=== PATIENT | female | born 1975 | race Caucasian/White ===

== ENCOUNTER 2017-12-03 18:20 | Inpatient (IN) | payer MEDICAID, OTHER ==
[2017-12-03] MEDS ORDERED: SODIUM CHLORIDE 0.9% 1,000 ML IV STA (18:36)
[2017-12-03 19:15] LABS: Basophils % (A) 0 %; Eosinophils # (A) 0.3 k/uL (0-0.7); Eosinophils % (A) 2 %; HCT 40.3 % (34.0-46.0); HGB 13.6 gm/dL (11.4-16.0); Lymphocytes # (A) 2.4 k/uL (1.0-4.8); Lymphocytes % (A) 23 %; MCH 29.7 pg (25.0-35.0); MCHC 33.8 g/dL (31.0-37.0); MCV 87.9 fL (80.0-100.0); Monocytes # (A) 0.4 k/uL (0-1.0); Monocytes % (A) 4 %; Neutrophils # (A) 7.2 k/uL (1.3-7.7); Neutrophils % (A) 69 %; Platelet Count 360 k/uL (150-450); RBC 4.59 m/uL (3.80-5.40); RDW 12.5 % (11.5-15.5); WBC 10.4 k/uL (3.8-10.6)
[2017-12-03 19:25] LABS: Amphetamine Screen,Urine Not Detected (NotDetected); Barbiturate Screen,Urine Not Detected (NotDetected); Benzodiazepines Screen,Urine Detected (NotDetected); Cocaine Screen,Urine Not Detected (NotDetected); Methadone Screen, Urine Not Detected (NotDetected); Opiate Screen,Urine Not Detected (NotDetected); Oxycodone Screen, Urine Not Detected (NotDetected); Phencyclidine Screen,Urine Not Detected (NotDetected); Tricyclic Antidepressant,Urine Not Detected (NotDetected); Urn Cannabinoid Scrn Not Detected (NotDetected)
[2017-12-03 19:29] LABS: ALT 24 U/L (9-52); AST 24 U/L (14-36); Albumin 4.2 g/dL (3.5-5.0); Alkaline Phosphatase 82 U/L (38-126); Anion Gap 16 mmol/L; Blood Urea Nitrogen 17 mg/dL (7-17); Calcium 9.6 mg/dL (8.4-10.2); Carbon Dioxide 22 mmol/L (22-30); Chloride 110 mmol/L (98-107); Glucose 112 mg/dL (74-99); Potassium 4.7 mmol/L (3.5-5.1); Salicylate <1.0 mg/dL; Sodium 148 mmol/L (137-145); Total Bilirubin 0.3 mg/dL (0.2-1.3); Total Protein 6.6 g/dL (6.3-8.2)
[2017-12-03 19:48] LABS: Alcohol 163 mg/dL
--- NOTE | 2017-12-03 19:58 | XR ---
EXAMINATION TYPE: XR chest 2V DATE OF EXAM: 12/03/2017 COMPARISON: 11/03/2010 HISTORY: 2 views TECHNIQUE: Frontal and lateral views of the chest are obtained. FINDINGS: Heart and mediastinum are normal. Lungs are clear. Diaphragm is normal. Bony thorax appear s normal. There are chest leads. IMPRESSION: Normal chest. No change.
--- NOTE | 2017-12-03 21:19 | ED ---
Psych HPI - General Chief Complaint: Psychiatric Symptoms Stated Complaint: Mental Health Time Seen by Provider: 12/03/17 18:36 Source: police Mode of arrival: ambulatory - History of Present Illness Initial Comments: 41 years O female brought in by , her boyfriend called he is concerned that she is harming herself she has done overdose to kill herself. She has been drinking and she was not forthcoming with information about the number of the pills she took, she stated she took some Tylenol around 4 PM. she is not answering clearly wheather she took the meds to kill herself. He denies any headaches no chest pain or shortness of breath no abdominal pain no frequency urgency dysuria - Related Data Home Medications Medication Instructions Recorded Confirmed Dextroamphetamine/Amphetamine 30 mg PO BID 12/03/17 12/03/17 [Adderall] Allergies Allergy/AdvReac Type Severity Reaction Status Date / Time cephalexin [From Keflex] Allergy Unknown Verified 12/03/17 20:00 Review of Systems ROS Statement: Those systems with pertinent positive or pertinent negative responses have been documented in the HPI. ROS Other: All systems not noted in ROS Statement are negative. Past Medical History Past Medical History: No Reported History History of Any Multi-Drug Resistant Organisms: None Reported Past Surgical History: No Surgical Hx Reported Past Psychological History: No Psychological Hx Reported Smoking Status: Current every day smoker Past Alcohol Use History: Daily Past Drug Use History: None Reported General Exam - General Exam Comments Initial Comments: General: The patient is awake and alert, she is angry, agitated and do not want to be here Skin: Skin is warm and dry and no rashes or lesions are noted. Eye: Pupils are equal, round and reactive to light, extra-ocular movements are intact; there is normal conjunctiva bilaterally. Ears, nose, mouth and throat: There are moist mucous membranes and no oral lesions. Neck: The neck is supple, there is no tenderness or JVD. Cardiovascular: There is a regular rate and rhythm. No murmur, rub or gallop is appreciated. Respiratory: To auscultation bilateral, no wheezing no rhonchi no distress respiratory laura noticed Gastrointestinal: Soft, non-distended, non-tender abdomen without masses or organomegaly noted. There is no rebound or guarding present. Bowel sounds are unremarkable. Back: There is no tenderness to palpation in the midline. There is no obvious deformity. Musculoskeletal: Normal ROM, no tenderness, There is no pedal edema. There is no calf tenderness or swelling. No cords were appreciated. Neurological: CN II-XII intact, Cranial nerves III through XII are intact. There are no obvious motor or sensory deficits. Coordination appears grossly intact. Speech is normal. Psychiatric: Cooperative, crying, intoxicated and angry denies the suicidal attempt Limitations: no limitations Course Vital Signs 12/03/17 12/03/17 18:39 20:11 Temperature 97.8 F Pulse Rate 97 86 Respiratory 18 16 Rate Blood Pressure 168/112 106/58 O2 Sat by Pulse 95 98 Oximetry EKG is normal sinus rhythm ventricular rate is 96 OR interval is 134 QRS duration is 82 QT/QTc is 348/439 review of this EKG does not reveal any ST elevation or ST depression She was assessed by EPS, they recommended that she ought to be admitted for inpatient treatment and I agree with the Medical Decision Making - Lab Data Result diagrams: 12/03/17 19:03 12/03/17 19:03 Lab Results 12/03/17 12/03/17 12/03/17 Range/Units 19:03 19:03 19:03 WBC 10.4 (3.8-10.6) k/uL RBC 4.59 (3.80-5.40) m/uL Hgb 13.6 (11.4-16.0) gm/dL Hct 40.3 (34.0-46.0) % MCV 87.9 (80.0-100.0) fL MCH 29.7 (25.0-35.0) pg MCHC 33.8 (31.0-37.0) g/dL RDW 12.5 (11.5-15.5) % Plt Count 360 (150-450) k/uL Neutrophils % 69 % Lymphocytes % 23 % Monocytes % 4 % Eosinophils % 2 % Basophils % 0 % Neutrophils # 7.2 (1.3-7.7) k/uL Lymphocytes # 2.4 (1.0-4.8) k/uL Monocytes # 0.4 (0-1.0) k/uL Eosinophils # 0.3 (0-0.7) k/uL Basophils # 0.0 (0-0.2) k/uL Sodium 148 H (137-145) mmol/L Potassium 4.7 (3.5-5.1) mmol/L Chloride 110 H (98-107) mmol/L Carbon Dioxide 22 (22-30) mmol/L Anion Gap 16 mmol/L BUN 17 (7-17) mg/dL Creatinine 0.60 (0.52-1.04) mg/dL Est GFR (CKD-EPI)AfAm >90 (>60 ml/min/1.73 sqM) Est GFR (CKD-EPI)NonAf >90 (>60 ml/min/1.73 sqM) Glucose 112 H (74-99) mg/dL Plasma Lactic Acid Guilherme (0.7-2.0) mmol/L Calcium 9.6 (8.4-10.2) mg/dL Total Bilirubin 0.3 (0.2-1.3) mg/dL AST 24 (14-36) U/L ALT 24 (9-52) U/L Alkaline Phosphatase 82 (38-126) U/L Troponin I (0.000-0.034) ng/mL Total Protein 6.6 (6.3-8.2) g/dL Albumin 4.2 (3.5-5.0) g/dL Urine HCG, Qual (Not Detectd) Salicylates <1.0 mg/dL Urine Opiates Screen Not Detected (NotDetected) Ur Oxycodone Screen Not Detected (NotDetected) Urine Methadone Screen Not Detected (NotDetected) Ur Propoxyphene Screen Not Detected (NotDetected) Acetaminophen 88.0 H* ug/mL Ur Barbiturates Screen Not Detected (NotDetected) U Tricyclic Antidepress Not Detected (NotDetected) Ur Phencyclidine Scrn Not Detected (NotDetected) Ur Amphetamines Screen Not Detected (NotDetected) U Methamphetamines Scrn Not Detected (NotDetected) U Benzodiazepines Scrn Detected H (NotDetected) Urine Cocaine Screen Not Detected (NotDetected) U Marijuana (THC) Screen Not Detected (NotDetected) Serum Alcohol 163 mg/dL 12/03/17 12/03/17 12/03/17 Range/Units 19:03 19:03 19:03 WBC (3.8-10.6) k/uL RBC (3.80-5.40) m/uL Hgb (11.4-16.0) gm/dL Hct (34.0-46.0) % MCV (80.0-100.0) fL MCH (25.0-35.0) pg MCHC (31.0-37.0) g/dL RDW (11.5-15.5) % Plt Count (150-450) k/uL Neutrophils % % Lymphocytes % % Monocytes % % Eosinophils % % Basophils % % Neutrophils # (1.3-7.7) k/uL Lymphocytes # (1.0-4.8) k/uL Monocytes # (0-1.0) k/uL Eosinophils # (0-0.7) k/uL Basophils # (0-0.2) k/uL Sodium (137-145) mmol/L Potassium (3.5-5.1) mmol/L Chloride (98-107) mmol/L Carbon Dioxide (22-30) mmol/L Anion Gap mmol/L BUN (7-17) mg/dL Creatinine (0.52-1.04) mg/dL Est GFR (CKD-EPI)AfAm (>60 ml/min/1.73 sqM) Est GFR (CKD-EPI)NonAf (>60 ml/min/1.73 sqM) Glucose (74-99) mg/dL Plasma Lactic Acid Guilherme 1.6 (0.7-2.0) mmol/L Calcium (8.4-10.2) mg/dL Total Bilirubin (0.2-1.3) mg/dL AST (14-36) U/L ALT (9-52) U/L Alkaline Phosphatase (38-126) U/L Troponin I <0.012 (0.000-0.034) ng/mL Total Protein (6.3-8.2) g/dL Albumin (3.5-5.0) g/dL Urine HCG, Qual Not Detected (Not Detectd) Salicylates mg/dL Urine Opiates Screen (NotDetected) Ur Oxycodone Screen (NotDetected) Urine Methadone Screen (NotDetected) Ur Propoxyphene Screen (NotDetected) Acetaminophen ug/mL Ur Barbiturates Screen (NotDetected) U Tricyclic Antidepress (NotDetected) Ur Phencyclidine Scrn (NotDetected) Ur Amphetamines Screen (NotDetected) U Methamphetamines Scrn (NotDetected) U Benzodiazepines Scrn (NotDetected) Urine Cocaine Screen (NotDetected) U Marijuana (THC) Screen (NotDetected) Serum Alcohol mg/dL 12/03/17 Range/Units 21:09 WBC (3.8-10.6) k/uL RBC (3.80-5.40) m/uL Hgb (11.4-16.0) gm/dL Hct (34.0-46.0) % MCV (80.0-100.0) fL MCH (25.0-35.0) pg MCHC (31.0-37.0) g/dL RDW (11.5-15.5) % Plt Count (150-450) k/uL Neutrophils % % Lymphocytes % % Monocytes % % Eosinophils % % Basophils % % Neutrophils # (1.3-7.7) k/uL Lymphocytes # (1.0-4.8) k/uL Monocytes # (0-1.0) k/uL Eosinophils # (0-0.7) k/uL Basophils # (0-0.2) k/uL Sodium (137-145) mmol/L Potassium (3.5-5.1) mmol/L Chloride (98-107) mmol/L Carbon Dioxide (22-30) mmol/L Anion Gap mmol/L BUN (7-17) mg/dL Creatinine (0.52-1.04) mg/dL Est GFR (CKD-EPI)AfAm (>60 ml/min/1.73 sqM) Est GFR (CKD-EPI)NonAf (>60 ml/min/1.73 sqM) Glucose (74-99) mg/dL Plasma Lactic Acid Guilherme (0.7-2.0) mmol/L Calcium (8.4-10.2) mg/dL Total Bilirubin (0.2-1.3) mg/dL AST (14-36) U/L ALT (9-52) U/L Alkaline Phosphatase (38-126) U/L Troponin I (0.000-0.034) ng/mL Total Protein (6.3-8.2) g/dL Albumin (3.5-5.0) g/dL Urine HCG, Qual (Not Detectd) Salicylates mg/dL Urine Opiates Screen (NotDetected) Ur Oxycodone Screen (NotDetected) Urine Methadone Screen (NotDetected) Ur Propoxyphene Screen (NotDetected) Acetaminophen 80.2 H* ug/mL Ur Barbiturates Screen (NotDetected) U Tricyclic Antidepress (NotDetected) Ur Phencyclidine Scrn (NotDetected) Ur Amphetamines Screen (NotDetected) U Methamphetamines Scrn (NotDetected) U Benzodiazepines Scrn (NotDetected) Urine Cocaine Screen (NotDetected) U Marijuana (THC) Screen (NotDetected) Serum Alcohol mg/dL Disposition Clinical Impression: Acute alcohol intoxication, Tylenol overdose Disposition: ADMITTED IP TO THIS [facility] Condition: Good
[2017-12-04] MEDS ORDERED: ACETAMINOPHEN TAB 325 MG TAB PO PRN (00:56)
[2017-12-04] MEDS ORDERED: MAGNESIUM HYDROXIDE 2,400 MG/10 ML CUP PO PRN (00:56)
[2017-12-04 01:45] VITALS: BMI 29.0
[2017-12-04 08:37] LABS: Cholesterol 153 mg/dL (<200); HDL Cholesterol 83 mg/dL (40-60); LDL Cholesterol,Calculated 54 mg/dL (0-99); Triglycerides 82 mg/dL (<150)
[2017-12-04] MEDS ORDERED: NICOTINE 14MG/24HR PATCH TRANSDERM SCH (09:00)
[2017-12-04 10:02] LABS: Prothrombin Time 9.7 sec (9.0-12.0)
[2017-12-04 10:06] LABS: ALT 25 U/L (9-52); AST 18 U/L (14-36); Acetaminophen <10.0 ug/mL
[2017-12-04] MEDS ORDERED: NICOTINE 7MG/24HR PATCH TRANSDERM SCH (11:00)
--- NOTE | 2017-12-04 14:00 | CONS ---
CONSULTATION DATE OF CONSULTATION: 12/04/2017 REASON FOR CONSULTATION: Medical management requested by Dr. Rodrigez. CONSULTATION: This is a 41-year-old patient who was brought into the ER yesterday evening. She was brought in by the classifier tender. Her boyfriend called the classifier tender. He was concerned that she was harming herself. The patient tells me that she normally does not drink or abuse any drugs, but she had an altercation with her boyfriend in the process she had one about a half a pint and took 6 extra-strength Tylenol and she had no intention of killing herself. It was just more attention seeking or just frustrated and she did that. The patient does take medicine for ADHD, otherwise is in good health and works as a place. Denies any nausea or vomiting. No abdominal pain. Is rather very active. Otherwise, denies any obvious anxiety or depression. The patient did tolerate some diet. Has been up to the bathroom. REVIEW OF SYSTEMS: CONSTITUTIONAL: None. HEENT: None. RESPIRATORY: None. CARDIOVASCULAR: None. GASTROINTESTINAL: None. GENITOURINARY: None. MUSCULOSKELETAL: None. DERMATOLOGICAL: None. HEMATOLOGIC: None. LYMPHATIC: None. PSYCHIATRY: As above. PAST MEDICAL HISTORY: ADHD. PAST SURGICAL HISTORY: Birthmark to the forehead removed. SOCIAL HISTORY: Lives with her boyfriend. Smokes anywhere from 2 or 3 cigarettes a day. Denies use of any recreational drugs and alcohol only occasionally at social function. FAMILY HISTORY: Diabetes, hypertension, myocardial infarction. HOME MEDICATIONS: Adderall 30 mg b.i.d. ALLERGIES: KEFLEX. PHYSICAL EXAMINATION: On examination, temperature 97, pulse 77, respirations 16, blood pressure 137/93, pulse ox 96% on room air. GENERAL APPEARANCE: Average build, lying in bed, comfortable. Fairly groomed. EYES: Pupils equal. Conjunctivae normal. HENT: External appearance of the nose and ears normal. Oral cavity normal. NECK: JVD not raised. Mass not palpable. RESPIRATORY: Effort normal. Lungs are clear. CARDIOVASCULAR: First and second sounds normal. No edema. ABDOMEN: Soft, nontender. Liver and spleen not palpable. LYMPHATIC: No lymph nodes palpable in neck or axillae. PSYCHIATRY: Alert and oriented x3. Mood and affect normal. INVESTIGATIONS: White count 10.4, hemoglobin 13.6. Sodium 148. BUN and creatinine is normal. LFTs are normal. LDL 54. The patient's acetaminophen level initially was 88, then dropped down to 80.2. I did repeat one this morning, came back less than 10. Serum alcohol is 163 on initial presentation. Liver enzymes this morning are normal. ASSESSMENT: 1. Acute Tylenol overdose 6 tablets of extra strength and acetaminophen level has come down nicely. There is no chronic use. 2. Acute alcohol intoxication, impulsive. 3. Hypernatremia, probably from free water deficit. 4. Attention deficit hyperactivity disorder. 5. Chronic nicotine dependence. The patient smokes 2 or 3 cigarettes a day. PLAN: No further treatment for the Tylenol overdose. Enzymes have come back. She is not a chronic user and took only 6 pills. Alcohol is not an issue. We will give the patient a nicotine patch. The patient should follow up with Dr. Gibson upon discharge. I discussed her care with Dr. Rodrigez. Thank you Dr. Rodrigez. MMJENIL / SANJUANAN: [id number] /
--- NOTE | 2017-12-04 14:46 | P.HP ---
Psychiatric H&P - . H&P Date: 12/04/17 History & Physical: IDENTIFYING DATA: The patient is a 41-year-old single female admitted to the psychiatric unit involuntarily. HISTORY OF PRESENT ILLNESS: The [place] police brought her to the [facility] after receiving a telephone call from her boyfriend concerned for her safety. They arrived at her house and found her sedated. The officer completed a Petition where he wrote that he found evidence that the patient consumed almost a full bottle of 500 mg Tylenol tablets. The patient also texted her mother and sister indicating suicidal comments that "I'm done" and "it's over". She also expressed intent for her possessions to be sold off. She called her boyfriend and told him that she took a bottle of pills and don't come home for an hour and a half "just called 91". She stated that she has been depressed since the of her son and only child 3 years ago. He was 19 years old and while using cocaine and Valium. She does not know whether he from and overdose or complications of the use. She suspect that he was "experimenting" with drugs but was unaware that he had a drug "problem". She stated that she becomes more depressed around the anniversary of his . This year is the third anniversary of his overdose (he in October). She believes that the anniversary, Mother's Day, and activities related to the graduation of a niece all contributed to the worsening grief, hopelessness and thoughts of suicide. She drank an unspecified amount of whiskey and took the tablets of Tylenol with the intent of "not waking up very". She does not believe that she intended to end her life because she made contact with both her sister and her boyfriend. She understands her behavior as an expression of the severity of her distress. She has been meeting with a therapist on a weekly basis since the of her son. This week the therapist called and canceled the appointment. The therapist offered to meet on the following day but the patient stated that she was unable to keep that appointment. She described episode depression but denied feeling persistently depressed and during our interview denied all symptoms of depression. She denied feeling persistently or severely anxious. She denied periods of anxiety that built up a crescendo consistent with panic attacks. She denied obsessions or compulsions. She alleged that she has a "social drinker". She denied daily use of alcohol. She denied that she has made attempts to cut down her alcohol. She denied that she had felt annoyed when her friends or family would criticize her drinking. She does not feel guilty about her drinking and denied that she has a drink in the morning to open eyes or steady her nerves. (CAGE = 0). However, she admitted that her boyfriend has been criticizing her drinking. She denied use of drugs get high, help her sleep or change her mood. She denied psychotic symptoms (such as hallucinations, ideas of reference, thought insertion etc.). PAST PSYCHIATRIC HISTORY: She denied prior psychiatric hospitalizations. She has been meeting with counselors and therapists since the of her son. Her therapist is Sveta Mena at [facility]. She has been prescribed several antidepressants most for which she has found no benefit. Her primary care patient care director prescribes Adderall (30 mg twice a day) for a purported diagnosis of ADHD PAST MEDICAL HISTORY: None. ALLERGIES: Cephalexin. SUBSTANCE USE HISTORY: She was admitted to a residential substance treatment program when she was 19 years old for the abuse of prescription opiate medications. She denied current abuse of drugs or alcohol.. FAMILY PSYCHIATRIC/SUBSTANCE USE HISTORY: She has a family history of depression. LEGAL HISTORY: He denied legal problems. SOCIAL HISTORY: His born in [facility] and raised by an intact family. She has 1 sister. She graduated from high school and boasted she received 2 associates degrees from [employer] and a bachelor's degree from [employer]. 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 She alleged that the work was too stressful. She is single and had one child. She currently lives with her boyfriend. MENTAL STATUS EXAM: She presented as a casually groomed middle-aged female who was pleasant on approach. She made eye contact and appeared to attend to the interview. She had no distinction features are prominent physical modalities. She had a flat facial expression. She was alert and oriented to person, place and time. She showed psychomotor retardation but no abnormal movements. She had a normal gait. Her speech was spontaneous with slight decrease of rhythm and volume. She had no articulation difficulties. Affect was depressed and not reactive. She denied current suicidal ideation or wishes. She denied homicidal ideation. She denied such depressive cognitions as hopelessness mishap, helplessness and worthlessness. She ruminated about the of her son and a failure her mind relief from her grief. She did not express ideas reference, paranoid ideation or delusions. Her thinking was abstract and her associations were coherent, logical and goal directed. She denied hallucinations and did not appear to responding to internal stimuli. Global impression of intellect is average to above. She was aware of her illness but is ambivalent about continued inpatient mental health treatment.. STRENGTHS: Good health, supportive family, engagement with mental health services. WEAKNESSES: Unresolved grief. IMPRESSION: She is a 41-year-old single female who presented to [facility] after an overdose of alcohol and acetaminophen. She has a history of complicated bereavement following the apparent unintentional overdose of her only child. She is denying current symptoms of depression or thoughts of or suicide. She is psychologically minded and somewhat patronizing in response to questions about her mood and thoughts. I do not feel comfortable discharging her to outpatient care at this time and she was ambivalent about involuntary hospitalization. Should best be treated on an inpatient basis with a combination of psychopharmacology and multimodal therapy. PRINCIPLE DIAGNOSIS: Suicide attempt by overdose of alcohol and acetaminophen, bereavement, rule out major depressive disorder, rule out alcohol use disorder RECOMMENDATION: Continue inpatient psychiatric hospitalization due to severe of suicide attempt. Complete a Clinical Certificate and submitted to supporting material to probate Court and proceed with the request for involuntary hospitalization. Obtain collateral information from partner and family. Discuss a trial of antidepressant medication. Encourage participation in therapeutic groups and activities. Evaluate clinical status and response to treatment on a daily basis. Allergies Allergy/AdvReac Type Severity Reaction Status Date / Time cephalexin [From Keflex] Allergy Unknown Verified 12/04/17 01:48 Vital Signs Temp 97.0 F L 12/04/17 01:35 Pulse 77 12/04/17 01:35 Resp 16 12/04/17 01:35 BP 137/93 12/04/17 01:35 Pulse Ox 96 12/04/17 01:35 Intake & Output 12/03/17 12/04/17 12/04/17 18:59 06:59 18:59 Weight 81.647 kg 89.046 kg Laboratory Last Values WBC 10.4 k/uL (3.8-10.6) 12/03/17 19:03 RBC 4.59 m/uL (3.80-5.40) 12/03/17 19:03 Hgb 13.6 gm/dL (11.4-16.0) 12/03/17 19:03 Hct 40.3 % (34.0-46.0) 12/03/17 19:03 MCV 87.9 fL (80.0-100.0) 12/03/17 19:03 MCH 29.7 pg (25.0-35.0) 12/03/17 19:03 MCHC 33.8 g/dL (31.0-37.0) 12/03/17 19:03 RDW 12.5 % (11.5-15.5) 12/03/17 19:03 Plt Count 360 k/uL (150-450) 12/03/17 19:03 Neutrophils % 69 % 12/03/17 19:03 Lymphocytes % 23 % 12/03/17 19:03 Monocytes % 4 % 12/03/17 19:03 Eosinophils % 2 % 12/03/17 19:03 Basophils % 0 % 12/03/17 19:03 Neutrophils # 7.2 k/uL (1.3-7.7) 12/03/17 19:03 Lymphocytes # 2.4 k/uL (1.0-4.8) 12/03/17 19:03 Monocytes # 0.4 k/uL (0-1.0) 12/03/17 19:03 Eosinophils # 0.3 k/uL (0-0.7) 12/03/17 19:03 Basophils # 0.0 k/uL (0-0.2) 12/03/17 19:03 PT 9.7 sec (9.0-12.0) 12/04/17 09:27 INR 1.0 (<1.2) 12/04/17 09:27 Sodium 148 mmol/L (137-145) H 12/03/17 19:03 Potassium 4.7 mmol/L (3.5-5.1) 12/03/17 19:03 Chloride 110 mmol/L (98-107) H 12/03/17 19:03 Carbon Dioxide 22 mmol/L (22-30) 12/03/17 19:03 Anion Gap 16 mmol/L 12/03/17 19:03 BUN 17 mg/dL (7-17) 12/03/17 19:03 Creatinine 0.60 mg/dL (0.52-1.04) 12/03/17 19:03 Est GFR (CKD-EPI)AfAm >90 (>60 ml/min/1.73 sqM) 12/03/17 19:03 Est GFR (CKD-EPI)NonAf >90 (>60 ml/min/1.73 sqM) 12/03/17 19:03 Glucose 112 mg/dL (74-99) H 12/03/17 19:03 Plasma Lactic Acid Guilherme 1.6 mmol/L (0.7-2.0) 12/03/17 19:03 Calcium 9.6 mg/dL (8.4-10.2) 12/03/17 19:03 Total Bilirubin 0.3 mg/dL (0.2-1.3) 12/03/17 19:03 AST 18 U/L (14-36) 12/04/17 09:27 ALT 25 U/L (9-52) 12/04/17 09:27 Alkaline Phosphatase 82 U/L (38-126) 12/03/17 19:03 Troponin I <0.012 ng/mL (0.000-0.034) 12/03/17 19:03 Total Protein 6.6 g/dL (6.3-8.2) 12/03/17 19:03 Albumin 4.2 g/dL (3.5-5.0) 12/03/17 19:03 Triglycerides 82 mg/dL (<150) 12/04/17 08:10 Cholesterol 153 mg/dL (<200) 12/04/17 08:10 LDL Cholesterol, Calc 54 mg/dL (0-99) 12/04/17 08:10 HDL Cholesterol 83 mg/dL (40-60) H 12/04/17 08:10 Urine HCG, Qual Not Detected (Not Detectd) 12/03/17 19:03 Salicylates <1.0 mg/dL 12/03/17 19:03 Urine Opiates Screen Not Detected (NotDetected) 12/03/17 19:03 Ur Oxycodone Screen Not Detected (NotDetected) 12/03/17 19:03 Urine Methadone Screen Not Detected (NotDetected) 12/03/17 19:03 Ur Propoxyphene Screen Not Detected (NotDetected) 12/03/17 19:03 Acetaminophen <10.0 ug/mL 12/04/17 09:27 Ur Barbiturates Screen Not Detected (NotDetected) 12/03/17 19:03 U Tricyclic Antidepress Not Detected (NotDetected) 12/03/17 19:03 Ur Phencyclidine Scrn Not Detected (NotDetected) 12/03/17 19:03 Ur Amphetamines Screen Not Detected (NotDetected) 12/03/17 19:03 U Methamphetamines Scrn Not Detected (NotDetected) 12/03/17 19:03 U Benzodiazepines Scrn Detected (NotDetected) H 12/03/17 19:03 Urine Cocaine Screen Not Detected (NotDetected) 12/03/17 19:03 U Marijuana (THC) Screen Not Detected (NotDetected) 12/03/17 19:03 Serum Alcohol 163 mg/dL 12/03/17 19:03 12/04/17 14:20
[2017-12-04 17:12] LABS: Hemoglobin A1C 5.3 % (4.0-6.0)
[2017-12-05 17:03] LABS: Amorphous Sediment,Urine Occasional /hpf; Appearance,Urine Cloudy (Clear); Bilirubin,Urine Negative (Negative); Blood,Urine Negative (Negative); Color,Urine Yellow; Glucose,Urine (UA) Negative (Negative); Ketones,Urine Negative (Negative); Leukocyte Esterase,Urine Small (Negative); Mucus,Urine Rare /hpf; Nitrite,Urine Negative (Negative); PH, Urine 7.5 (5.0-8.0); Protein,Urine Negative (Negative); RBC,Urine 3 /hpf (0-5); Specific Gravity,Urine 1.015 (1.001-1.035); Squamous Epithelial Cell,Urine 2 /hpf (0-4); Urobilinogen,Urine <2.0 mg/dL (<2.0); WBC,Urine 6 /hpf (0-5)
[2017-12-05] MEDS: NICOTINE 14MG/24HR PATCH TRANSDERM SCH (17:52)
--- NOTE | 2017-12-05 19:07 | P.PN ---
Progress Note - Text Progress Note Date: 12/05/17 Patient is currently not on any psychotropic medications. She is currently refusing to take any psychiatric medications. Reports being diagnosed with ADHD and claims to have been taking Adderall the past 5 years. Asked why she hasn't been receiving her Adderall here, she also stated that it is not a big deal, I don't need it, I don't have to concentrate much being in the hospital. She claims to have felt stressed over the loss of her 19-year-old son 3 years ago in the month of October. Reports to have quit her job due to feeling stressed. She reports heavy use of alcohol use to have taken 6 Tylenol after drinking half pint of liquor to deal with her emotional pain. He stated she does not have any intentions to kill herself. Reports a good sleep and appetite. She reports going to all groups. Patient wants to sign voluntary treatment consent form. 2 clinical supports have already been completed and the patient. She reports feeling better today and wants to know how long she has to stay in the hospital. 41-year-old female appeared her stated age in fair grooming and hygiene. Maintains good eye contact. No abnormal movements noted. Speech and thought process linear and goal directed. Her mood is reported as good and affect appropriate. She denies current auditory or visual hallucinations. She denies paranoia. She denies current auditory or visual hallucinations. He is alert and oriented 4. Major depression Continue inpatient psychiatric hospitalization. Refusing to take antidepressant medications Monitor for symptoms Ecourage participation in therapeutic groups and activities.
[2017-12-06] MEDS: NICOTINE 14MG/24HR PATCH TRANSDERM SCH (09:21)
--- NOTE | 2017-12-06 20:34 | P.PN ---
Progress Note - Text Progress Note Date: 12/06/17 She was seen today. Claims she has been taking Adderall for the past 4 years. reports feeling dizzy and lightheaded due to not being on Adderall for the past 3 days. She was advised that Adderall is nonformulary. We discussed various other medication options. She has agreed to take Wellbutrin. She is currently on her menstrual cycle. Also stated she takes oral contraceptive pills. sHe reports her boyfriend had visited her today. He reports feeling better. Denies current suicidal or homicidal ideations. Denies feeling hopeless or worthless. No anger or agitation or irritability is reported. rePorts good sleep and appetite. Reports going to all her groups. 41-year-old female, appears in fair grooming and hygiene. sHe is well built and dressed casually. She is pleasant and cooperative. Maintains good eye contact Abnormal movements noted. Her speech and thought process are linear and goal directed. Her mood is reported as better and affect appropriate. His auditory or visual hallucinations. Alert and oriented 4. His paranoia. Denies current suicidal or homicidal ideations. Insight and judgment are improving. Will start wellbutrin 150mg po qday. Monitor for symptoms Ecourage participation in therapeutic groups and activities. Social work to coordinate discharge and aftercare.
[2017-12-07] MEDS: NICOTINE 14MG/24HR PATCH TRANSDERM SCH (08:21)
[2017-12-07] MEDS: buPROPion XL 150 MG TAB.ER.24H PO SCH (08:22)
--- NOTE | 2017-12-07 12:50 | P.PN ---
Subjective Progress Note Date: 12/07/17 Principal diagnosis: Suicide attempt by overdose of alcohol and acetaminophen, bereavement, rule out major depressive disorder, rule out alcohol use disorder I reviewed the medical record, interviewed the patient and discuss her treatment and treatment plan with the treatment team. She reported that she does not feel suicidal or depressed. She has benefited from attending the group therapy sessions where she felt comfortable talking with others about her feelings, loss and personal experiences. Over the weekend, she agreed to a trial of Wellbutrin as an alternative to her outpatient prescription of Adderall. She denied any current side effects to the Wellbutrin. She was initially angry that we decided to proceed with involuntary hospitalization but after talking with her cousin, who was a social media designer, she understood the reason for our decision. She plans to defer the court hearing and continue with outpatient mental health treatment. Objective - Vital Signs Vital signs: Vital Signs Temp 98.1 F 12/07/17 06:16 Pulse 82 12/07/17 06:16 Resp 16 12/07/17 06:16 BP 110/61 12/07/17 06:16 Pulse Ox 100 12/06/17 18:32 Intake & Output 12/06/17 12/07/17 12/07/17 18:59 06:59 18:59 Weight 87.8 kg - Psychiatric Psychiatric Comment(s): She presented as a casually groomed 41-year-old female who was pleasant on approach. She made eye contact and attended to the interview. She had no distinguishing features or prominent physical abnormalities. She had a bright facial expression. She was alert and oriented to person, place and time. She showed no abnormality of psychomotor activity; specifically no psychomotor retardation. Her gait was stable and steady. Her speech was spontaneous with normal rate, rhythm and volume. Affect was bright, stable and appropriate. She denied suicidal ideation or wishes. She denied depressive cognitions such as hopelessness, helplessness or worthlessness. She did not express phobias, ideas reference, paranoid ideation or delusional thoughts. Her thinking was abstract and associations were coherent and logical. She denied hallucinations and did not appear to be responding to internal stimuli. 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 Continue Wellbutrin XL 150 mg daily for the treatment of depression and ADHD. Encouraged continued participation in therapeutic groups and activities. Evaluate clinical status response to treatment on a daily basis.
[2017-12-07] MEDS: LORazepam 1 MG TAB PO PRN ×2 (15:48→23:32)
[2017-12-07] MEDS: MAG HYDROX/AL HYDROX/SIMETH 30 ML CUP PO PRN (18:17)
[2017-12-07] MEDS: SULFAMETHOX-TMP 800-160MG 1 EACH TAB PO SCH (20:45)
[2017-12-08] MEDS: SULFAMETHOX-TMP 800-160MG 1 EACH TAB PO SCH ×2 (08:35→20:55)
[2017-12-08] MEDS: buPROPion XL 150 MG TAB.ER.24H PO SCH (08:36)
[2017-12-08] MEDS: NICOTINE 21MG/24HR PATCH TRANSDERM SCH (08:36)
[2017-12-08] MEDS: LORazepam 1 MG TAB PO PRN ×2 (10:52→19:23)
--- NOTE | 2017-12-08 13:20 | P.PN ---
Subjective Progress Note Date: 12/08/17 Principal diagnosis: Suicide attempt by overdose of alcohol and acetaminophen, bereavement, rule out major depressive disorder, rule out alcohol use disorder I reviewed the medical record, interviewed the patient and discuss her treatment and treatment plan with the treatment team. She denied having thoughts of or suicide. She is anxious to be discharged and inquired if her to deferral hearing could be earlier (it is currently scheduled for 2017). The clinical unit coordinator called probate Court and the date of the deferral cannot be changed at the present time. I explained the situation to the patient and she received the news without undue distress. Objective - Vital Signs Vital signs: Vital Signs Temp 97.9 F 12/08/17 06:32 Pulse 69 12/08/17 06:32 Resp 14 12/08/17 06:32 BP 115/73 12/08/17 06:32 Pulse Ox 100 12/06/17 18:32 - Psychiatric Psychiatric Comment(s): She presented as a casually groomed 41-year-old female who was pleasant on approach. She made eye contact and attended to the interview. She had no distinguishing features or prominent physical abnormalities. She had a blunted but bright facial expression. She was alert and oriented to person, place and time. She showed no abnormality of psychomotor activity; specifically no psychomotor retardation. Her gait was stable and steady. Her speech was spontaneous with normal rate, rhythm and volume. Affect was bright, stable and appropriate. She denied suicidal ideation or wishes. She denied depressive cognitions such as hopelessness, helplessness or worthlessness. She did not express phobias, ideas reference, paranoid ideation or delusional thoughts. Her thinking was abstract and associations were coherent and logical. She denied hallucinations and did not appear to be responding to internal stimuli. - Labs CBC & Chem 7: 12/03/17 19:03 12/03/17 19:03 Assessment and Plan Assessment: She is less irritable and angry than on admission. She is denying suicidal ideation, intent or plan. 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 Continue Wellbutrin XL 150 mg daily for the treatment of depression and ADHD. Encouraged continued participation in therapeutic groups and activities. Consider discharge if and when the patient agrees to deferred the probate hearing. Evaluate clinical status response to treatment on a daily basis.
[2017-12-08] MEDS: MAG HYDROX/AL HYDROX/SIMETH 30 ML CUP PO PRN (16:09)
[2017-12-08] MEDS ORDERED: MELATONIN 5 MG TABLET PO STA (22:37)
[2017-12-09 06:17] VITALS: RESP 16
[2017-12-09] MEDS: SULFAMETHOX-TMP 800-160MG 1 EACH TAB PO SCH ×2 (08:19→21:32)
[2017-12-09] MEDS: buPROPion XL 150 MG TAB.ER.24H PO SCH (08:19)
[2017-12-09] MEDS: NICOTINE 21MG/24HR PATCH TRANSDERM SCH (08:19)
[2017-12-09] MEDS: LORazepam 1 MG TAB PO PRN ×2 (08:20→15:34)
[2017-12-09] MEDS ORDERED: IBUPROFEN 600 MG TAB PO PRN (13:49)
[2017-12-09] MEDS ORDERED: MELATONIN 5 MG TABLET PO PRN (14:06)
--- NOTE | 2017-12-09 14:14 | P.PN ---
Subjective Progress Note Date: 12/09/17 Principal diagnosis: Suicide attempt by overdose of alcohol and acetaminophen, bereavement, rule out major depressive disorder, rule out alcohol use disorder I reviewed the medical record, interviewed the patient and discuss her treatment and treatment plan with the treatment team. She denied having thoughts of or suicide. She requested a prescription for Motrin instead of Tylenol for dental pain (she is scheduled for canal on 12/16/2017). She complains of difficulty sleeping and benefited from a when necessary dose of melatonin 5 mg last night. She requested to continue the melatonin. She requests an increase in the Wellbutrin. She stated that her mood has improved but she is continuing to have general feelings of anxiety. She she also inquired about continuing with Ativan after discharge from the hospital. We engaged in a fairly lengthy discussion of the benefits and risks associated with chronic benzodiazepine use. She explained that her mother, father, sister , grandmother and boyfriend are prescribed Xanax chronically. Her mother, father and sister receive Xanax from their primary care physician for treatment of "anxiety". However, the same physician has declined her request for prescription for Xanax. She appeared to except my recommendation that she not continue this a benzodiazepine once she leaves the hospital due to the risk of dependence. Objective - Vital Signs Vital signs: Vital Signs Temp 97.8 F 12/09/17 06:05 Pulse 70 12/09/17 06:05 Resp 16 12/09/17 06:05 BP 104/68 12/09/17 06:05 Pulse Ox 100 12/06/17 18:32 - Psychiatric Psychiatric Comment(s): She presented as a casually groomed 41-year-old female who was pleasant on approach. She made eye contact and attended to the interview. She had no distinguishing features or prominent physical abnormalities. She had a blunted but bright facial expression. She was alert and oriented to person, place and time. She showed no abnormality of psychomotor activity; specifically no psychomotor retardation. Her gait was stable and steady. Her speech was spontaneous with normal rate, rhythm and volume. Affect was bright, stable and appropriate. She denied suicidal ideation or wishes. She denied depressive cognitions such as hopelessness, helplessness or worthlessness. She did not express phobias, ideas reference, paranoid ideation or delusional thoughts. Her thinking was abstract and associations were coherent and logical. She denied hallucinations and did not appear to be responding to internal stimuli. - Labs CBC & Chem 7: 12/03/17 19:03 12/03/17 19:03 Assessment and Plan Assessment: Overall, she appears mildly mentally ill and very much improved from admission. 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 Increase Wellbutrin XL 300 mg daily for the treatment of anxiety, depression and ADHD. Encouraged continued participation in therapeutic groups and activities. Discharge after she defers the probate hearing. Evaluate clinical status response to treatment on a daily basis.
[2017-12-10] MEDS ORDERED: LORazepam 1 MG TAB ONE (02:26)
[2017-12-10 06:51] VITALS: BP 110/76; PULSE 74; TEMP 97.9
[2017-12-10] MEDS: SULFAMETHOX-TMP 800-160MG 1 EACH TAB PO SCH (08:22)
[2017-12-10] MEDS: NICOTINE 21MG/24HR PATCH TRANSDERM SCH (08:22)
[2017-12-10] MEDS ORDERED: buPROPion XL 300 MG TAB.ER.24H PO SCH (09:00)
[2017-12-10] MEDS: LORazepam 1 MG TAB PO PRN (11:58)
--- NOTE | 2017-12-10 14:10 | P.DS ---
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 She was admitted to the psychiatric unit involuntarily following an attempted suicide by overdose of alcohol and acetaminophen. She apparently to exit her boyfriend and her sister indicating current suicidal ideation. In the emergency department her serum alcohol was 163. The initial acetaminophen level was 88. When she was medically cleared she was transferred to the psychiatric unit under the care of this process description writer. We provided a comprehensive biopsychosocial assessment. The continuous improvement consultant system support developer completed initial physical exam and medical history. On admission to the unit she was angry and depressed. She attributed to the attempt to the anniversary of her son's . She minimizes the severity of the suicide attempt and demanded to be discharged. Because of the lack of of insight as to the severity of her suicidal attempt we proceeded with the application for involuntary hospitalization. A significant contributor may have been the cancellation of her appointment with her psychotherapist the week of her suicide attempt. 48 hours after admission the unit her demeanor changed. She was much less angry and depressed. She expressed remorse over her behavior. She participated in therapeutic groups and activities. She posed no management problem and required no emergent medications for behavioral dyscontrol. Although she initially declined treatment of antidepressant (alleging that she is not depressed and "they have not worked in the past") She agreed to a trial of Wellbutrin XL for the treatment of mood and symptoms ADHD. She reported improvement in her mood, decrease anxiety and improved ability concentrate and attend with the Wellbutrin. She met with her court appointed contracts attorney and deferred the probate hearing. She presented as a tall casually groomed middle-aged female who was pleasant on approach. She made eye contact and attended to the interview. She had a bright facial expression. She is alert and oriented to person, place and time. She showed no irritability of psychomotor activity. She is not agitated or restless. Her speech was spontaneous with normal rate, rhythm and volume. She had no articulation difficulties. Affect was stable and appropriate. She denied suicidal ideation or wishes. She denied homicidal ideation. She denied such depressive cognitions as hopelessness, helplessness or worthlessness. She did not ruminate about the of her son. She did not express ideas reference or paranoid ideation. Her thinking was abstract and associations were coherent, logical and goal directed. She denied hallucinations and did not appear to be responding to internal stimuli. Patient Condition at Discharge: Good Plan - Discharge Summary Discharge Rx Participant: No New Discharge Prescriptions: New buPROPion XL [Wellbutrin XL] 300 mg PO DAILY #30 tab.er.24h Melatonin 5 mg PO HS PRN #30 tablet PRN Reason: Insomnia Nicotine 21Mg/24Hr Patch [Habitrol] 1 patch TRANSDERM DAILY #7 patch Discontinued Dextroamphetamine/Amphetamine [Adderall] 30 mg PO BID Discharge Medication List Melatonin 5 mg PO HS PRN #30 tablet 12/10/17 [Rx] Nicotine 21Mg/24Hr Patch [Habitrol] 1 patch TRANSDERM DAILY #7 patch 12/10/17 [ Rx] buPROPion XL [Wellbutrin XL] 300 mg PO DAILY #30 tab.er.24h 12/10/17 [Rx] Follow up Appointment(s)/Referral(s): [facility] [Outside] - 12/11/17 1:00 pm (Rick Mar MD [Primary Care Provider] - 1-2 days Patient Instructions/Handouts: Alcohol Intoxication (DC), Suicide Prevention for Adults (DC) Activity/Diet/Wound Care/Special Instructions: Keep your follow up appointments as scheduled. Continue medications as prescribed. No alcohol or street drugs. No access to guns or weapons. Crisis line if needed . Discharge Disposition: HOME SELF-CARE
== END 2017-12-10 15:13 | disposition home or self-care (01) | DRG 881 ==
LOC: EC 18:20 → 3MHU 12-04 00:54
PROVIDERS: ADMIT Psychiatry & Neurology Psychiatry; ATTEND Psychiatry & Neurology Psychiatry
DX: F43.21 Adjustment disorder with depressed mood (principal); E87.0 Hyperosmolality and hypernatremia; F10.129 Alcohol abuse with intoxication, unspecified; F17.210 Nicotine dependence, cigarettes, uncomplicated; F41.9 Anxiety disorder, unspecified; F90.9 Attention-deficit hyperactivity disorder, unspecified type; T39.1X2A Poisoning by 4-Aminophenol derivatives, intentional self-harm, initial encounter; Z63.4 Disappearance and death of family member; Z81.8 Family history of other mental and behavioral disorders; Z82.49 Family history of ischemic heart disease and other diseases of the circulatory system; Z83.3 Family history of diabetes mellitus; Y90.6 Blood alcohol level of 120-199 mg/100 ml; Z56.0 Unemployment, unspecified
CPT/HCPCS: 36415; 71046; 80053; 80061; 80306; 80320; 81001; 81025; 82075; 83036; 83520; 83605; 84450; 84460; 84484; 85025; 85610; 93005; 96360; 99285

== ENCOUNTER 2017-12-18 16:25 | Observation (INO) | payer OTHER ==
[2017-12-18] MEDS ORDERED: SODIUM CHLORIDE 0.9% 1,000 ML IV STA (16:36)
[2017-12-18] MEDS ORDERED: LORazepam 2 MG/ML INJ IV STA ×2 (16:38→17:01)
[2017-12-18 16:58] LABS: Basophils # (A) 0.1 k/uL (0-0.2); Basophils % (A) 1 %; Eosinophils # (A) 0.3 k/uL (0-0.7); Eosinophils % (A) 2 %; HCT 40.5 % (34.0-46.0); HGB 13.4 gm/dL (11.4-16.0); Lymphocytes # (A) 4.3 k/uL (1.0-4.8); Lymphocytes % (A) 28 %; MCH 30.6 pg (25.0-35.0); MCHC 33.1 g/dL (31.0-37.0); MCV 92.4 fL (80.0-100.0); Mean Platelet Volume 6.8; Monocytes # (A) 0.6 k/uL (0-1.0); Monocytes % (A) 4 %; Neutrophils # (A) 9.6 k/uL (1.3-7.7); Neutrophils % (A) 64 %; Platelet Count 445 k/uL (150-450); RBC 4.38 m/uL (3.80-5.40); RDW 13.2 % (11.5-15.5); WBC 15.1 k/uL (3.8-10.6)
[2017-12-18] MEDS ORDERED: ETOMIDATE 2 MG/ML 10 ML VIAL IVP STA (16:58)
[2017-12-18] MEDS ORDERED: SUCCINYLCHOLINE CHLORIDE VIAL 200 MG/10 ML VIAL IV STA (16:58)
[2017-12-18 16:59] LABS: VBG PH 7.22 (7.31-7.41)
--- NOTE | 2017-12-18 17:03 | ED ---
Overdose HPI - General Chief Complaint: Overdose Stated Complaint: drug ingestion Time Seen by Provider: 12/18/17 16:36 Source: patient Mode of arrival: EMS Limitations: altered mental status - History of Present Illness Initial Comments: Patient is a 42-year-old female presenting for intentional overdose. Mother and sister bedside and states that approximately at 3:30 to 4:00 PM, the patient called them and told them that she was committing suicide with Wellbutrin. EMS was called and the patient arrived to the emergency department. Because of patient's mental status, the patient could not provide review of systems. Family is also able to state that the patient has a known history of psychiatric disorders and attempted suicide approximately 7 days ago. There is present with the medication bottles and they have one Wellbutrin bottle of 300 mg with no tablets left. This bottle was originally filled on . A second bottle is dated for 12/15/2017 and 150 mg. This bottle has 3 tablets left. Other medications for the patient include atorvastatin, meclizine, duloxetine, fluoxetine, vitamin D, omeprazole, sertraline - Related Data Previous Rx's Medication Instructions Recorded Melatonin 5 mg PO HS PRN #30 tablet 12/10/17 Nicotine 21Mg/24Hr Patch [Habitrol] 1 patch TRANSDERM DAILY #7 patch 12/10/17 buPROPion XL [Wellbutrin XL] 300 mg PO DAILY #30 tab.er.24h 12/10/17 Allergies Allergy/AdvReac Type Severity Reaction Status Date / Time cephalexin [From Keflex] Allergy Unknown Verified 12/18/17 16:55 Review of Systems ROS Statement: Those systems with pertinent positive or pertinent negative responses have been documented in the HPI. ROS Other: All systems not noted in ROS Statement are negative. Limitations: ROS unobtainable due to patients medical condition Past Medical History Past Medical History: No Reported History History of Any Multi-Drug Resistant Organisms: None Reported Past Surgical History: No Surgical Hx Reported Additional Past Surgical History / Comment(s): Birthmark to forehead removed. Past Anesthesia/Blood Transfusion Reactions: No Reported Reaction Past Psychological History: Anxiety, Depression Smoking Status: Current every day smoker Past Alcohol Use History: Occasional Past Drug Use History: None Reported - Past Family History Father Family Medical History: Diabetes Mellitus, Hypertension, Myocardial Infarction ( [place]) Mother Family Medical History: No Reported History Son(s) Family Medical History: No Reported History General Exam - General Exam Comments Initial Comments: Constitutional: Pt is distressed and moving about the bed and nonpurposeful motions. HENT: Head: Normocephalic and atraumatic. Eyes: Rotary nystagmus present. Pupils 4 mm and minimally reactive bilaterally Neck: Normal range of motion. Neck supple. Cardiovascular: Tachycardia, regular rhythm, S1 normal, S2 normal and normal heart sounds. Exam reveals no gallop and no friction rub. No murmur heard. Pulmonary/Chest: Effort normal and breath sounds normal. tachypnea is present. No respiratory distress. No wheezes or rales noted. Abdominal: Soft. Bowel sounds are normal. Pt exhibits no shifting dullness, no distension, no pulsatile liver, no fluid wave, no abdominal bruit and no ascites. There is no tenderness. There is no rigidity, no rebound, no guarding, no tenderness at McBurney's point and negative Rodas's sign. Musculoskeletal: Normal range of motion. Neurological: Unable to assess neurologic mentation. Patient is alert. Clonus of the lower extremities is present. Unable to assess reflexes. Skin: Patient is diaphoretic with diffuse erythema Psychiatric: Patient is agitated and making nonsensical speech Limitations: altered mental status Course Vital Signs 12/18/17 12/18/17 12/18/17 16:45 17:05 17:20 Temperature 100.5 F H Pulse Rate 133 H 110 H 99 Respiratory 32 H 18 16 Rate Blood Pressure 210/127 192/110 143/86 O2 Sat by Pulse 97 100 100 Oximetry 12/18/17 12/18/17 12/18/17 17:45 18:05 18:25 Temperature Pulse Rate 93 88 88 Respiratory 18 16 16 Rate Blood Pressure 142/86 121/65 124/73 O2 Sat by Pulse 100 100 100 Oximetry 12/18/17 12/18/17 12/18/17 18:45 18:47 19:09 Temperature 97.9 F Pulse Rate 88 92 Respiratory 16 16 Rate Blood Pressure 131/86 133/75 O2 Sat by Pulse 100 100 Oximetry 12/18/17 12/18/17 12/18/17 19:34 19:52 20:19 Temperature Pulse Rate 81 78 78 Respiratory 20 18 Rate Blood Pressure 138/77 133/86 116/81 O2 Sat by Pulse 100 100 100 Oximetry 12/18/17 12/18/17 20:34 20:52 Temperature Pulse Rate 78 79 Respiratory 17 16 Rate Blood Pressure 154/81 156/90 O2 Sat by Pulse 100 100 Oximetry - Reevaluation(s) Reevaluation #1: 12/18/17 16:30 - patient arrived to the emergency department and noted to be combative. Patient was placed in restraints and given 4 mg of Ativan. Time: 16:30 Reevaluation #2: 12/18/17 16:40 Patient continues to remain agitated and there is concern about the patient maintaining her airway. Therefore the patient was moved to a resuscitation bay and preparing for intubation. Time: 16:40 Reevaluation #3: 12/18/17 17:15 - patient intubated without complication. Post procedure x-ray performed and shows that the ET tube is in correct position. Case has been discussed with toxicology center and is recommended that whole bowel irrigation be performed as well as charcoal. There is no recommendation for cyproheptadine for SSRI. Patient has been placed on propofol as well as Versed and shows no seizure-like activities. 12/18/17 19:33 Reevaluation #4: 12/18/17 19:29 Patient continues to remain hemodynamically stable and mentation is improving. She is able to nod her head and give appropriate thumbs-up and is writing on a piece of paper. However, the patient will obviously remained intubated as there is still continued risk of seizures. Procedures - Intubation Time Out Performed: No (emergent) Sedative: Etomidate Mg Given: 20 Paralytic: Succinylcholine Mg Given: 80 Laryngoscope: Rivera Size: 4 ET Tube Size: 8 ET Tube Uncuffed: No Tube Secured Depth (cm): 24 Tube Secured Location: lips Tube Placement Confirmation: visualized tube passing through cords, equal breath sounds bilaterally, no breath sounds over epigastrium, confirmation by capnometry Patient Tolerated Procedure: well Intubation Complications: none - Restraint - Face to Face Restraint Occurrence 1 Patient's Immediate Situation: Endangers self safety, Endangers others' safety Patient's Immediate Situation - Comment: Restraints applied at 16:30. Restraints unsuccessful and there is concern for patient airway. Therefore restraints removed at approximately 1650. Patient's Reaction to the Intervention: Aggressive, Combative, Resistive to care Patient's Medical & Behavioral Condition: Awake, Alert, Confused, Anxious, Agitated, Bizarre behavior Need to Continue or Terminate Restraint or Seclusion: Terminate Face to Face Eval of Restraint Date: 12/18/17 Face to Face Eval of Restraint Time: 16:30 Medical Decision Making - Medical Decision Making Laboratory studies showed that the patient was initially acidotic with a lactic acid elevation of 9.9 and leukocytosis. It is suspected that this is reactionary. PH was also noted to be 7.2 to. Upon initial examination, the was extremely agitated and there was very high concerned about impending seizures considering that she does have a reliable story of overdosing on Wellbutrin. Because of this concern, the patient was intubated with success. Case is also discussed with toxicology Center multiple times and charcoal and whole bowel irrigation was measured. Remaining toxicology screens were negative and patient was admitted to ICU. Case is discussed with both and Tc in both kindly accept admission. - Lab Data Result diagrams: 12/18/17 16:40 12/18/17 16:40 Lab Results 12/18/17 12/18/17 12/18/17 Range/Units 16:40 16:40 16:40 WBC 15.1 H (3.8-10.6) k/uL RBC 4.38 (3.80-5.40) m/uL Hgb 13.4 (11.4-16.0) gm/dL Hct 40.5 (34.0-46.0) % MCV 92.4 (80.0-100.0) fL MCH 30.6 (25.0-35.0) pg MCHC 33.1 (31.0-37.0) g/dL RDW 13.2 (11.5-15.5) % Plt Count 445 (150-450) k/uL Neutrophils % 64 % Lymphocytes % 28 % Monocytes % 4 % Eosinophils % 2 % Basophils % 1 % Neutrophils # 9.6 H (1.3-7.7) k/uL Lymphocytes # 4.3 (1.0-4.8) k/uL Monocytes # 0.6 (0-1.0) k/uL Eosinophils # 0.3 (0-0.7) k/uL Basophils # 0.1 (0-0.2) k/uL PT (9.0-12.0) sec INR (<1.2) Sample Site ABG pH (7.35-7.45) ABG pCO2 (35-45) mmHg ABG pO2 (83-108) mmHg ABG HCO3 (21-25) mmol/L ABG O2 Saturation (94-97) % ABG Base Excess mmol/L Dilshad Test VBG pH 7.22 L (7.31-7.41) VBG pCO2 40 (37-51) mmHg VBG HCO3 16 L (24-28) mmol/L FiO2 % Sodium 141 (137-145) mmol/L Potassium 4.6 (3.5-5.1) mmol/L Chloride 104 (98-107) mmol/L Carbon Dioxide 12 L (22-30) mmol/L Anion Gap 25 mmol/L BUN 11 (7-17) mg/dL Creatinine 0.90 (0.52-1.04) mg/dL Est GFR (CKD-EPI)AfAm >90 (>60 ml/min/1.73 sqM) Est GFR (CKD-EPI)NonAf 80 (>60 ml/min/1.73 sqM) Glucose 211 H (74-99) mg/dL Lactic Ac Sepsis Rflx Plasma Lactic Acid Guilherme (0.7-2.0) mmol/L Calcium 9.7 (8.4-10.2) mg/dL Total Bilirubin 0.6 (0.2-1.3) mg/dL Conjugated Bilirubin 0.0 (0.0-0.3) mg/dL Unconjugated Bilirubin 0.4 (0.0-1.1) mg/dL Delta Bilirubin 0.2 (0.0-0.2) mg/dL AST 30 (14-36) U/L ALT 29 (9-52) U/L Alkaline Phosphatase 82 (38-126) U/L Creatine Kinase 227 H (30-135) U/L Troponin I (0.000-0.034) ng/mL Total Protein 7.1 (6.3-8.2) g/dL Albumin 4.7 (3.5-5.0) g/dL Lipase 85 (23-300) U/L Urine Color Urine Appearance (Clear) Urine pH (5.0-8.0) Ur Specific [place] (1.001-1.035) Urine Protein (Negative) Urine Glucose (UA) (Negative) Urine Ketones (Negative) Urine Blood (Negative) Urine Nitrite (Negative) Urine Bilirubin (Negative) Urine Urobilinogen (<2.0) mg/dL Ur Leukocyte Esterase (Negative) Urine RBC (0-5) /hpf Urine WBC (0-5) /hpf Ur Squamous Epith Cells (0-4) /hpf Hyaline Casts (0-2) /lpf Urine Mucus (None) /hpf Urine HCG, Qual (Not Detectd) Salicylates <1.0 mg/dL Urine Opiates Screen (NotDetected) Ur Oxycodone Screen (NotDetected) Urine Methadone Screen (NotDetected) Ur Propoxyphene Screen (NotDetected) Acetaminophen <10.0 ug/mL Ur Barbiturates Screen (NotDetected) U Tricyclic Antidepress (NotDetected) Ur Phencyclidine Scrn (NotDetected) Ur Amphetamines Screen (NotDetected) U Methamphetamines Scrn (NotDetected) U Benzodiazepines Scrn (NotDetected) Urine Cocaine Screen (NotDetected) U Marijuana (THC) Screen (NotDetected) Serum Alcohol <10 mg/dL 12/18/17 12/18/17 12/18/17 Range/Units 16:40 16:40 16:40 WBC (3.8-10.6) k/uL RBC (3.80-5.40) m/uL Hgb (11.4-16.0) gm/dL Hct (34.0-46.0) % MCV (80.0-100.0) fL MCH (25.0-35.0) pg MCHC (31.0-37.0) g/dL RDW (11.5-15.5) % Plt Count (150-450) k/uL Neutrophils % % Lymphocytes % % Monocytes % % Eosinophils % % Basophils % % Neutrophils # (1.3-7.7) k/uL Lymphocytes # (1.0-4.8) k/uL Monocytes # (0-1.0) k/uL Eosinophils # (0-0.7) k/uL Basophils # (0-0.2) k/uL PT 10.1 (9.0-12.0) sec INR 1.0 (<1.2) Sample Site ABG pH (7.35-7.45) ABG pCO2 (35-45) mmHg ABG pO2 (83-108) mmHg ABG HCO3 (21-25) mmol/L ABG O2 Saturation (94-97) % ABG Base Excess mmol/L Dilshad Test VBG pH (7.31-7.41) VBG pCO2 (37-51) mmHg VBG HCO3 (24-28) mmol/L FiO2 % Sodium (137-145) mmol/L Potassium (3.5-5.1) mmol/L Chloride (98-107) mmol/L Carbon Dioxide (22-30) mmol/L Anion Gap mmol/L BUN (7-17) mg/dL Creatinine (0.52-1.04) mg/dL Est GFR (CKD-EPI)AfAm (>60 ml/min/1.73 sqM) Est GFR (CKD-EPI)NonAf (>60 ml/min/1.73 sqM) Glucose (74-99) mg/dL Lactic Ac Sepsis Rflx Plasma Lactic Acid Guilherme 9.9 H* (0.7-2.0) mmol/L Calcium (8.4-10.2) mg/dL Total Bilirubin (0.2-1.3) mg/dL Conjugated Bilirubin (0.0-0.3) mg/dL Unconjugated Bilirubin (0.0-1.1) mg/dL Delta Bilirubin (0.0-0.2) mg/dL AST (14-36) U/L ALT (9-52) U/L Alkaline Phosphatase (38-126) U/L Creatine Kinase (30-135) U/L Troponin I <0.012 (0.000-0.034) ng/mL Total Protein (6.3-8.2) g/dL Albumin (3.5-5.0) g/dL Lipase (23-300) U/L Urine Color Urine Appearance (Clear) Urine pH (5.0-8.0) Ur Specific [place] (1.001-1.035) Urine Protein (Negative) Urine Glucose (UA) (Negative) Urine Ketones (Negative) Urine Blood (Negative) Urine Nitrite (Negative) Urine Bilirubin (Negative) Urine Urobilinogen (<2.0) mg/dL Ur Leukocyte Esterase (Negative) Urine RBC (0-5) /hpf Urine WBC (0-5) /hpf Ur Squamous Epith Cells (0-4) /hpf Hyaline Casts (0-2) /lpf Urine Mucus (None) /hpf Urine HCG, Qual (Not Detectd) Salicylates mg/dL Urine Opiates Screen (NotDetected) Ur Oxycodone Screen (NotDetected) Urine Methadone Screen (NotDetected) Ur Propoxyphene Screen (NotDetected) Acetaminophen ug/mL Ur Barbiturates Screen (NotDetected) U Tricyclic Antidepress (NotDetected) Ur Phencyclidine Scrn (NotDetected) Ur Amphetamines Screen (NotDetected) U Methamphetamines Scrn (NotDetected) U Benzodiazepines Scrn (NotDetected) Urine Cocaine Screen (NotDetected) U Marijuana (THC) Screen (NotDetected) Serum Alcohol mg/dL 12/18/17 12/18/17 12/18/17 Range/Units 17:12 17:30 17:30 WBC (3.8-10.6) k/uL RBC (3.80-5.40) m/uL Hgb (11.4-16.0) gm/dL Hct (34.0-46.0) % MCV (80.0-100.0) fL MCH (25.0-35.0) pg MCHC (31.0-37.0) g/dL RDW (11.5-15.5) % Plt Count (150-450) k/uL Neutrophils % % Lymphocytes % % Monocytes % % Eosinophils % % Basophils % % Neutrophils # (1.3-7.7) k/uL Lymphocytes # (1.0-4.8) k/uL Monocytes # (0-1.0) k/uL Eosinophils # (0-0.7) k/uL Basophils # (0-0.2) k/uL PT (9.0-12.0) sec INR (<1.2) Sample Site ABG pH (7.35-7.45) ABG pCO2 (35-45) mmHg ABG pO2 (83-108) mmHg ABG HCO3 (21-25) mmol/L ABG O2 Saturation (94-97) % ABG Base Excess mmol/L Dilshad Test VBG pH (7.31-7.41) VBG pCO2 (37-51) mmHg VBG HCO3 (24-28) mmol/L FiO2 % Sodium (137-145) mmol/L Potassium (3.5-5.1) mmol/L Chloride (98-107) mmol/L Carbon Dioxide (22-30) mmol/L Anion Gap mmol/L BUN (7-17) mg/dL Creatinine (0.52-1.04) mg/dL Est GFR (CKD-EPI)AfAm (>60 ml/min/1.73 sqM) Est GFR (CKD-EPI)NonAf (>60 ml/min/1.73 sqM) Glucose (74-99) mg/dL Lactic Ac Sepsis Rflx Y Plasma Lactic Acid Guilherme (0.7-2.0) mmol/L Calcium (8.4-10.2) mg/dL Total Bilirubin (0.2-1.3) mg/dL Conjugated Bilirubin (0.0-0.3) mg/dL Unconjugated Bilirubin (0.0-1.1) mg/dL Delta Bilirubin (0.0-0.2) mg/dL AST (14-36) U/L ALT (9-52) U/L Alkaline Phosphatase (38-126) U/L Creatine Kinase (30-135) U/L Troponin I (0.000-0.034) ng/mL Total Protein (6.3-8.2) g/dL Albumin (3.5-5.0) g/dL Lipase (23-300) U/L Urine Color Yellow Urine Appearance Clear (Clear) Urine pH 5.5 (5.0-8.0) Ur Specific [place] 1.016 (1.001-1.035) Urine Protein 1+ H (Negative) Urine Glucose (UA) Negative (Negative) Urine Ketones Trace H (Negative) Urine Blood Negative (Negative) Urine Nitrite Negative (Negative) Urine Bilirubin Negative (Negative) Urine Urobilinogen <2.0 (<2.0) mg/dL Ur Leukocyte Esterase Negative (Negative) Urine RBC <1 (0-5) /hpf Urine WBC 1 (0-5) /hpf Ur Squamous Epith Cells 1 (0-4) /hpf Hyaline Casts 43 H (0-2) /lpf Urine Mucus Occasional H (None) /hpf Urine HCG, Qual Not Detected (Not Detectd) Salicylates mg/dL Urine Opiates Screen Not Detected (NotDetected) Ur Oxycodone Screen Not Detected (NotDetected) Urine Methadone Screen Not Detected (NotDetected) Ur Propoxyphene Screen Not Detected (NotDetected) Acetaminophen ug/mL Ur Barbiturates Screen Not Detected (NotDetected) U Tricyclic Antidepress Not Detected (NotDetected) Ur Phencyclidine Scrn Not Detected (NotDetected) Ur Amphetamines Screen Not Detected (NotDetected) U Methamphetamines Scrn Not Detected (NotDetected) U Benzodiazepines Scrn Detected H (NotDetected) Urine Cocaine Screen Not Detected (NotDetected) U Marijuana (THC) Screen Not Detected (NotDetected) Serum Alcohol mg/dL 12/18/17 Range/Units 17:49 WBC (3.8-10.6) k/uL RBC (3.80-5.40) m/uL Hgb (11.4-16.0) gm/dL Hct (34.0-46.0) % MCV (80.0-100.0) fL MCH (25.0-35.0) pg MCHC (31.0-37.0) g/dL RDW (11.5-15.5) % Plt Count (150-450) k/uL Neutrophils % % Lymphocytes % % Monocytes % % Eosinophils % % Basophils % % Neutrophils # (1.3-7.7) k/uL Lymphocytes # (1.0-4.8) k/uL Monocytes # (0-1.0) k/uL Eosinophils # (0-0.7) k/uL Basophils # (0-0.2) k/uL PT (9.0-12.0) sec INR (<1.2) Sample Site LRA ABG pH 7.36 (7.35-7.45) ABG pCO2 34 L (35-45) mmHg ABG pO2 >420 H (83-108) mmHg ABG HCO3 19 L (21-25) mmol/L ABG O2 Saturation 99.6 H (94-97) % ABG Base Excess 5.2 mmol/L Dilshad Test Yes VBG pH (7.31-7.41) VBG pCO2 (37-51) mmHg VBG HCO3 (24-28) mmol/L FiO2 100 % Sodium (137-145) mmol/L Potassium (3.5-5.1) mmol/L Chloride (98-107) mmol/L Carbon Dioxide (22-30) mmol/L Anion Gap mmol/L BUN (7-17) mg/dL Creatinine (0.52-1.04) mg/dL Est GFR (CKD-EPI)AfAm (>60 ml/min/1.73 sqM) Est GFR (CKD-EPI)NonAf (>60 ml/min/1.73 sqM) Glucose (74-99) mg/dL Lactic Ac Sepsis Rflx Plasma Lactic Acid Guilherme (0.7-2.0) mmol/L Calcium (8.4-10.2) mg/dL Total Bilirubin (0.2-1.3) mg/dL Conjugated Bilirubin (0.0-0.3) mg/dL Unconjugated Bilirubin (0.0-1.1) mg/dL Delta Bilirubin (0.0-0.2) mg/dL AST (14-36) U/L ALT (9-52) U/L Alkaline Phosphatase (38-126) U/L Creatine Kinase (30-135) U/L Troponin I (0.000-0.034) ng/mL Total Protein (6.3-8.2) g/dL Albumin (3.5-5.0) g/dL Lipase (23-300) U/L Urine Color Urine Appearance (Clear) Urine pH (5.0-8.0) Ur Specific [place] (1.001-1.035) Urine Protein (Negative) Urine Glucose (UA) (Negative) Urine Ketones (Negative) Urine Blood (Negative) Urine Nitrite (Negative) Urine Bilirubin (Negative) Urine Urobilinogen (<2.0) mg/dL Ur Leukocyte Esterase (Negative) Urine RBC (0-5) /hpf Urine WBC (0-5) /hpf Ur Squamous Epith Cells (0-4) /hpf Hyaline Casts (0-2) /lpf Urine Mucus (None) /hpf Urine HCG, Qual (Not Detectd) Salicylates mg/dL Urine Opiates Screen (NotDetected) Ur Oxycodone Screen (NotDetected) Urine Methadone Screen (NotDetected) Ur Propoxyphene Screen (NotDetected) Acetaminophen ug/mL Ur Barbiturates Screen (NotDetected) U Tricyclic Antidepress (NotDetected) Ur Phencyclidine Scrn (NotDetected) Ur Amphetamines Screen (NotDetected) U Methamphetamines Scrn (NotDetected) U Benzodiazepines Scrn (NotDetected) Urine Cocaine Screen (NotDetected) U Marijuana (THC) Screen (NotDetected) Serum Alcohol mg/dL - EKG Data EKG Comments: EKG timed for 12/19/15:49 - sinus tachycardia with a rate of 134, SC interval 166, QRS 94, QTC [address] depressions or elevations noted significant baseline artifact noted EKG timed for 12/16/16:07 - sinus tachycardia measured at 1 12 bpm, SC interval 184, QRS 100, QTC 461. No significant ST depressions or elevations noted. Critical Care Time Critical Care Time: Yes Total Critical Care Time: 45 Critical Care Time: Patient was emergently intubated as she was not protecting her airway. There is also extensive discussion with toxicology center and review multiple imaging including CT head and KUB and chest x-ray. Approximate 45 minutes of critical care time was spent on this case. Disposition Clinical Impression: Bupropion overdose, Respiratory failure Disposition: ADMITTED IP TO [facility] Condition: Poor Decision to Admit Reason: Admit from EC Decision Date: 12/18/17 Decision Time: 18:26
[2017-12-18 17:09] LABS: Prothrombin Time 10.1 sec (9.0-12.0)
[2017-12-18 17:10] LABS: ALT 29 U/L (9-52); AST 30 U/L (14-36); Acetaminophen <10.0 ug/mL; Albumin 4.7 g/dL (3.5-5.0); Alcohol <10 mg/dL; Alkaline Phosphatase 82 U/L (38-126); Anion Gap 25 mmol/L; Bilirubin, Delta 0.2 mg/dL (0.0-0.2); Bilirubin,Unconjugated 0.4 mg/dL (0.0-1.1); Blood Urea Nitrogen 11 mg/dL (7-17); Calcium 9.7 mg/dL (8.4-10.2); Carbon Dioxide 12 mmol/L (22-30); Chloride 104 mmol/L (98-107); Creatine Kinase 227 U/L (30-135); Glucose 211 mg/dL (74-99); Lipase 85 U/L (23-300); Potassium 4.6 mmol/L (3.5-5.1); Salicylate <1.0 mg/dL; Sodium 141 mmol/L (137-145); Total Bilirubin 0.6 mg/dL (0.2-1.3); Total Protein 7.1 g/dL (6.3-8.2)
[2017-12-18] MEDS ORDERED: SODIUM CHLORIDE 0.9% 1,000 ML IV ONE (17:15)
[2017-12-18] MEDS ORDERED: MIDAZOLAM HCL 100 MG in SODIUM CHLORIDE 0.9% 80 ML IV SCH (17:15)
[2017-12-18] MEDS ORDERED: PROPOFOL 10 MG/ML 20 ML VIAL IV STA ×2 (17:28→17:39)
[2017-12-18] MEDS ORDERED: ACTIVATED CHARCOAL 50 GM/240 ML BOTTLE PO STA (17:28)
[2017-12-18] MEDS: SODIUM CHLORIDE 0.9% 1,000 ML IV SCH ×2 (17:33→22:51)
[2017-12-18 17:40] LABS: Appearance,Urine Clear (Clear); Bilirubin,Urine Negative (Negative); Blood,Urine Negative (Negative); Color,Urine Yellow; Glucose,Urine (UA) Negative (Negative); Hyaline Casts,Urine 43 /lpf (0-2); Ketones,Urine Trace (Negative); Leukocyte Esterase,Urine Negative (Negative); Mucus,Urine Occasional /hpf; Nitrite,Urine Negative (Negative); PH, Urine 5.5 (5.0-8.0); Protein,Urine 1+ (Negative); RBC,Urine <1 /hpf (0-5); Specific Gravity,Urine 1.016 (1.001-1.035); Squamous Epithelial Cell,Urine 1 /hpf (0-4); Urobilinogen,Urine <2.0 mg/dL (<2.0); WBC,Urine 1 /hpf (0-5)
[2017-12-18] MEDS ORDERED: PROPOFOL 1,000 MG in EMPTY BAG 1 BAG IV ONE (17:42)
[2017-12-18] MEDS ORDERED: PEG 3350-NA SULF,BICARB,CL/KCL 4,000 ML BOTTLE PO ONE (17:45)
[2017-12-18 17:50] LABS: Amphetamine Screen,Urine Not Detected (NotDetected); Barbiturate Screen,Urine Not Detected (NotDetected); Benzodiazepines Screen,Urine Detected (NotDetected); Cocaine Screen,Urine Not Detected (NotDetected); Methadone Screen, Urine Not Detected (NotDetected); Opiate Screen,Urine Not Detected (NotDetected); Oxycodone Screen, Urine Not Detected (NotDetected); Phencyclidine Screen,Urine Not Detected (NotDetected); Tricyclic Antidepressant,Urine Not Detected (NotDetected); Urn Cannabinoid Scrn Not Detected (NotDetected)
[2017-12-18] MEDS ORDERED: ARTIFICIAL TEARS OINTMENT 3.5 GM TUBE BOTH EYES PRN (18:08)
[2017-12-18] MEDS ORDERED: NALOXONE 0.4 MG/ML 1 ML VIAL IV PRN (18:08)
[2017-12-18 18:16] LABS: ABG Base Excess 5.2 mmol/L; ABG HCO3 19 mmol/L (21-25); ABG Oxygen Saturation 99.6 % (94-97); ABG PCO2 34 mmHg (35-45); ABG PH 7.36 (7.35-7.45); ABG PO2 >420 mmHg (83-108)
--- NOTE | 2017-12-18 21:55 | XR ---
EXAMINATION TYPE: XR KUB portable DATE OF EXAM: 12/18/2017 COMPARISON: NONE HISTORY: Tube placement TECHNIQUE: 2 views FINDINGS: There is nasogastric tube that appears to have tip in the body of the stomach. Bowel gas pa ttern is normal. IMPRESSION: Tip is in the body of the stomach.
--- NOTE | 2017-12-18 22:00 | CT ---
EXAMINATION TYPE: CT brain wo con DATE OF EXAM: 12/18/2017 COMPARISON: NONE HISTORY: Altered mental status. Alleged overdose. CT DLP: 866.2 mGycm. Automated Exposure Control for Dose Reduction was Utilized. TECHNIQUE: CT scan of the head is performed without contrast. FINDINGS: Ventricles and sulci appear normal. There is no mass effect nor midline shift. There is no sign of intracranial hemorrhage. The calvarium is intact. There is some mucosal thickening in left ma xillary sinus. IMPRESSION: Minimal sinusitis. Otherwise negative CT scan of the brain.
[2017-12-18 22:26] LABS: Glucose,Whole Blood 86 mg/dL (75-99)
[2017-12-18] MEDS: PROPOFOL 1,000 MG in EMPTY BAG 1 BAG IV SCH (22:50)
[2017-12-18 23:47] LABS: ABG HCO3 21 mmol/L (21-25); ABG PCO2 39 mmHg (35-45); ABG PH 7.36 (7.35-7.45); ABG PO2 176 mmHg (83-108)
[2017-12-18 23:48] LABS: ABG Base Excess -3.4 mmol/L
[2017-12-19] MEDS: PROPOFOL 1,000 MG in EMPTY BAG 1 BAG IV SCH ×2 (02:31→05:01)
--- NOTE | 2017-12-19 04:33 | HP ---
HISTORY AND PHYSICAL DATE OF ADMISSION: December 18, 2017. DATE OF SERVICE: December 18, 2017. PRESENTING COMPLAINT: Wellbutrin overdose. HISTORY OF PRESENTING COMPLAINT: This is a 42-year-old patient who took an intentional overdose. The patient's mother and sister informed the ER physician that she had called them telling that she was committing suicide and taken Wellbutrin. EMS was called and she was rather lethargic and she had to be intubated. She had a bottle of Wellbutrin with 300 mg with no tablets left. Bottle was filled on December 10, the 2nd bottle is date is December 15, 2017 and 150 mg. The bottle has 3 tablets left. Other medications that were brought including atorvastatin, meclizine, duloxetine, fluoxetine, vitamin D, omeprazole, and Zoloft. The patient was in the psychiatry unit recently being discharged by Dr. Sterling on December 10, 2017. On that occasion, patient had attempted suicide by acetaminophen overdose, but this actually was a small amount. On last admission, her Adderall was discontinued and she was discharged on Wellbutrin XL 300 mg daily. Last admission also was a suicide attempt and she did express remorse over her behavior. The patient is currently intubated and on Diprivan, FiO2 40 and a PEEP of 5. REVIEW OF SYSTEMS: Patient intubated. PAST MEDICAL HISTORY: Psychiatry history, smoking. PAST SURGICAL HISTORY: Birthmark from forehead removed. SOCIAL HISTORY: The patient recently was living with a boyfriend, now alone since she left the hospital. Was smoking 2 cigarettes a day. Had denied in the past use of recreational drugs or alcohol only socially. FAMILY HISTORY: Of diabetes, hypertension and myocardial infarction. HOME MEDICATIONS: Wellbutrin XL 300 mg a day. ALLERGIES: KEFLEX. PHYSICAL EXAMINATION: VITAL SIGNS: On examination, afebrile. Pulse 79, respiration 16, blood pressure 126/90, pulse ox 100% on the ventilator. GENERAL APPEARANCE: Average build, lying in bed somewhat moving about. EYES: Pupils equal. Conjunctivae normal. HEENT: External appearance of nose and ears normal. Oral cavity endotracheal tube. NECK: JVD unable to assess. Mass not palpable. RESPIRATORY: Effort normal. Lungs: Fair entry. CARDIOVASCULAR: 1st and 2nd sounds normal. No edema. ABDOMEN: Soft, nontender. Liver and spleen not palpable. LYMPHATICS: No lymph nodes palpable in neck or axillae. PSYCHIATRY: Unable to assess. NEUROLOGICAL: The patient is actually moving about slowly. It may be noted that the patient charcoal was noted around the mouth. INVESTIGATIONS: White count 15.1, hemoglobin 13.4. Initial venous blood gas showed a pH of 7.22, repeat was 7.36, potassium 4.6, plasma lactic acid was 9.9, repeat came down to 1.8. Troponin was negative. Urine drug screen positive for benzodiazepine. Serum salicylate, acetaminophen, serum alcohol was all less than 10. ASSESSMENT: 1. Acute Wellbutrin overdose, quantity unknown. The patient did get charcoal in the ER. 2. Acute respiratory failure from central depression. The patient requiring ventilator assistance. 3. Chronic nicotine dependence, patient is a cigarette smoker. 4. Severe depression with suicidal ideation. PLAN: At this point patient is intubated on Diprivan. Supportive care. DVT prophylaxis, IV fluids, Critical Care, Dr. Junior was consulted and psychiatry will be consulted again to see the patient when she comes around. When she comes around patient will need a sitter. Copy to Dr. Gibson. [id number] / JV: [id number] /
[2017-12-19 04:51] LABS: Basophils % (A) 0 %; Eosinophils # (A) 0.3 k/uL (0-0.7); Eosinophils % (A) 2 %; HCT 35.9 % (34.0-46.0); HGB 11.8 gm/dL (11.4-16.0); Lymphocytes # (A) 2.3 k/uL (1.0-4.8); Lymphocytes % (A) 16 %; MCH 29.6 pg (25.0-35.0); MCV 89.8 fL (80.0-100.0); Mean Platelet Volume 6.6; Monocytes # (A) 0.8 k/uL (0-1.0); Monocytes % (A) 5 %; Neutrophils # (A) 11.4 k/uL (1.3-7.7); Neutrophils % (A) 76 %; Platelet Count 323 k/uL (150-450); RDW 13.4 % (11.5-15.5)
[2017-12-19 04:55] LABS: INR 1.1 (<1.2); Prothrombin Time 10.3 sec (9.0-12.0)
[2017-12-19 05:04] LABS: Albumin 3.4 g/dL (3.5-5.0); Anion Gap 10 mmol/L; Calcium 8.3 mg/dL (8.4-10.2); Carbon Dioxide 22 mmol/L (22-30); Chloride 109 mmol/L (98-107); Glucose 90 mg/dL (74-99); Lipase 45 U/L (23-300); Sodium 141 mmol/L (137-145); Total Bilirubin 0.6 mg/dL (0.2-1.3); Total Protein 5.8 g/dL (6.3-8.2)
[2017-12-19 05:11] LABS: Potassium 4.3 mmol/L (3.5-5.1)
[2017-12-19 05:12] LABS: ALT 31 U/L (9-52); AST 35 U/L (14-36); Alkaline Phosphatase 70 U/L (38-126); Blood Urea Nitrogen 8 mg/dL (7-17); Magnesium 2.1 mg/dL (1.6-2.3); Phosphorus 3.4 mg/dL (2.5-4.5)
--- NOTE | 2017-12-19 07:52 | XR ---
EXAMINATION TYPE: XR chest 1V portable DATE OF EXAM: 12/19/2017 COMPARISON: 12/18/2017 HISTORY: Drug ingestion. Confirm line placement. TECHNIQUE: Single frontal view of the chest is obtained. FINDINGS: Enteric and endotracheal tubes are unchanged in comparison to the prior exam and appear ap propriately placed. No focal consolidation, pleural effusion or pneumothorax is seen. Cardia mediasti nal silhouette is within normal limits. Osseous structures are intact. IMPRESSION: Appropriately placed enteric and endotracheal tube. No acute cardiopulmonary process.
[2017-12-19] MEDS: PEG 3350-NA SULF,BICARB,CL/KCL 4,000 ML BOTTLE PO SCH ×3 (08:03→08:05)
[2017-12-19] MEDS: PANTOPRAZOLE 40 MG/10 ML VIAL IV SCH (08:05)
[2017-12-19] MEDS: ENOXAPARIN 40 MG/0.4 ML SYRINGE SQ SCH (08:06)
[2017-12-19] MEDS ORDERED: CHLORHEXIDINE GLUCONATE 15 ML CUP MUCOUS MEM SCH (09:00)
--- NOTE | 2017-12-19 11:58 | P.CNPUL ---
History of Present Illness Consult date: 12/19/17 Requesting physician: Raudel Montez Reason for consult: other (Wellbutrin overdose) Chief complaint: Intentional overdose and altered mental status History of present illness: This is a 42-year-old female presented to the ER yesterday with intentional overdose. Around 4 PM, patient called her mother and sister, and told them that she was committing suicide with Wellbutrin. EMS was called, and patient was brought into the emergency room. Patient could not provide much history at the time of presentation, she was extremely restless and agitated, she is known to have history of psychiatric disorder, and attempted suicide about 7 days ago. She had a bottle of Wellbutrin which was empty, and it was last filled on 12/10/2017. Patient was intubated in the ER shortly after she arrived, poison control was notified, and recommended stomach lavage and charcoal. Patient was admitted to the intensive care unit last night, she was on mechanical ventilation, and I saw her this morning were and she was still on mechanical ventilation, after my evaluation, patient was given a trial of pressure support and CPAP, and I felt that I would likely extubate the patient in the next couple of hours. Chest x-ray was reviewed, labs were all reviewed, and the patient was switched to pressure support and CPAP. Review of Systems ROS unobtainable: due to endotracheal tube Past Medical History Past Medical History: No Reported History Additional Past Medical History / Comment(s): depression/anxiety and family stated that pt exhibited paranoia yesterday(12-17-17) which is new for her History of Any Multi-Drug Resistant Organisms: None Reported Past Surgical History: No Surgical Hx Reported Additional Past Surgical History / Comment(s): Birthmark to forehead removed. Past Anesthesia/Blood Transfusion Reactions: No Reported Reaction Past Psychological History: Anxiety, Depression Smoking Status: Current every day smoker Past Alcohol Use History: Occasional Past Drug Use History: None Reported - Past Family History Father Family Medical History: Diabetes Mellitus, Hypertension, Myocardial Infarction ( [place]) Mother Family Medical History: No Reported History Son(s) Family Medical History: No Reported History Medications and Allergies Home Medications Medication Instructions Recorded Confirmed Type Melatonin 5 mg PO HS PRN #30 tablet 12/10/17 12/18/17 Rx Nicotine 21Mg/24Hr Patch [Habitrol] 1 patch TRANSDERM DAILY #7 patch 05/31/18 06 /08/18 Rx buPROPion XL [Wellbutrin XL] 300 mg PO DAILY #30 tab.er.24h 12/10/17 12/18/17 Rx Allergies Allergy/AdvReac Type Severity Reaction Status Date / Time cephalexin [From Keflex] Allergy Unknown Verified 12/18/17 16:55 Physical Exam Vitals: Vital Signs Temp Pulse Resp BP Pulse Ox 12/19/17 09:40 99 12/19/17 09:00 75 12 119/81 100 12/19/17 08:00 99.2 F 76 13 107/55 100 12/19/17 07:00 77 18 118/78 100 12/19/17 06:00 74 18 103/67 100 12/19/17 05:00 78 22 140/79 100 12/19/17 04:00 98.2 F 75 22 115/80 100 12/19/17 03:00 73 18 122/79 100 12/19/17 02:00 72 15 109/73 100 12/19/17 01:30 75 19 102/68 100 12/19/17 01:00 84 18 139/93 98 12/19/17 00:30 77 16 139/93 100 12/19/17 00:00 97.9 F 75 16 114/78 100 12/18/17 23:30 77 18 120/72 100 12/18/17 23:06 79 19 137/88 100 12/18/17 23:00 80 18 137/88 100 12/18/17 22:50 78 17 138/90 100 12/18/17 22:40 77 18 138/90 100 12/18/17 22:30 97.8 F 78 18 138/90 100 12/18/17 22:24 78 12/18/17 20:52 79 16 156/90 100 12/18/17 20:34 78 17 154/81 100 12/18/17 20:19 78 18 116/81 100 12/18/17 19:52 78 133/86 100 12/18/17 19:34 81 20 138/77 100 12/18/17 19:09 92 16 133/75 100 12/18/17 18:47 97.9 F 12/18/17 18:45 88 16 131/86 100 12/18/17 18:25 88 16 124/73 100 12/18/17 18:05 88 16 121/65 100 12/18/17 17:45 93 18 142/86 100 12/18/17 17:20 99 16 143/86 100 12/18/17 17:05 110 H 18 192/110 100 12/18/17 16:45 100.5 F H 133 H 32 H 210/127 97 Intake and Output 12/18/17 12/19/17 12/19/17 22:59 06:59 14:59 Intake Total 38.731 976.95 461.483 Output Total 2175 360 Balance 38.731 -1198.05 101.483 Intake: IV 800 400 Sodium Chloride 0.9% 1, 800 400 000 ml @ 100 mls/hr IV . Q10H [facility] Rx#:[id number] Intake, IV Titration 38.731 176.95 61.483 Amount Propofol 1,000 mg In 38.731 Empty Bag 1 bag @ Titrate IV .Q0M [facility] Rx#: [id number] Propofol 1,000 mg In 176.95 61.483 Empty Bag 1 bag @ Titrate IV .Q0M [facility] Rx#: [id number] Output: Gastric Drainage 800 Urine 1375 360 Other: Voiding Method Indwelling Catheter Indwelling Catheter Weight 86.183 kg 89.1 kg Physical Exam: Revealed a 42-year-old female in no distress, on mechanical ventilation. Head: Atraumatic, normocephalic. HEENT:[Neck is supple.] [No neck masses.] [No thyromegaly.] [No JVD.] PERRLA, EOMI, endotracheal tube is intact, moist mucous membranes noted. Chest: [Clear throughout, no crackles, no rhonchi, no wheezes.] Cardiac Exam: [Normal S1 and S2, no S3 gallop, no murmur.] Abdomen: [Soft, nontender, no megaly, no rebound, no guarding, normal bowel sounds.] Extremities: [No clubbing, no edema, no cyanosis.] Neurological Exam: Cannot be assessed, patient is on mechanical ventilation, but she is following simple instructions off propofol. Psychiatric: Cannot be assessed. Lymphatics: No lymphadenopathy. Musculoskeletal: Normal range of motion, no deformities. Results - Laboratory Findings CBC and BMP: 12/19/17 04:24 12/19/17 04:24 ABG ABG pH 7.36 (7.35-7.45) 12/18/17 23:30 ABG pCO2 39 mmHg (35-45) 12/18/17 23:30 ABG pO2 176 mmHg (83-108) H 12/18/17 23:30 ABG O2 Saturation 99.0 % (94-97) H 12/18/17 23:30 PT/INR, D-dimer PT 10.3 sec (9.0-12.0) 12/19/17 04:24 INR 1.1 (<1.2) 12/19/17 04:24 Abnormal lab findings: Abnormal Labs 12/18/17 12/18/17 12/18/17 16:40 16:40 16:40 WBC 15.1 H Neutrophils # 9.6 H ABG pCO2 ABG pO2 ABG HCO3 ABG O2 Saturation VBG pH 7.22 L VBG HCO3 16 L Chloride Carbon Dioxide 12 L Creatinine Glucose 211 H Plasma Lactic Acid Guilherme Calcium Creatine Kinase 227 H Total Protein Albumin Urine Protein Urine Ketones Hyaline Casts Urine Mucus U Benzodiazepines Scrn 12/18/17 12/18/17 12/18/17 16:40 17:30 17:49 WBC Neutrophils # ABG pCO2 34 L ABG pO2 >420 H ABG HCO3 19 L ABG O2 Saturation 99.6 H VBG pH VBG HCO3 Chloride Carbon Dioxide Creatinine Glucose Plasma Lactic Acid Guilherme 9.9 H* Calcium Creatine Kinase Total Protein Albumin Urine Protein 1+ H Urine Ketones Trace H Hyaline Casts 43 H Urine Mucus Occasional H U Benzodiazepines Scrn Detected H 12/18/17 12/19/17 12/19/17 23:30 04:24 04:24 WBC 15.0 H Neutrophils # 11.4 H ABG pCO2 ABG pO2 176 H ABG HCO3 ABG O2 Saturation 99.0 H VBG pH VBG HCO3 Chloride 109 H Carbon Dioxide Creatinine 0.50 L Glucose Plasma Lactic Acid Guilherme Calcium 8.3 L Creatine Kinase Total Protein 5.8 L Albumin 3.4 L Urine Protein Urine Ketones Hyaline Casts Urine Mucus U Benzodiazepines Scrn - Diagnostic Findings Chest x-ray: image reviewed (No evidence of active disease noted.) Assessment and Plan Assessment: Impression: 1 Acute hypoxic respiratory failure secondary to Wellbutrin overdose. Quantity unknown. 2 severe depression, with suicidal ideations. 3 suicidal attempts with Wellbutrin overdose 4 chronic nicotine dependence syndrome. Recommendation: Patient will be weaned utilizing a pressure support, CPAP mode of mechanical ventilation, and if tolerated, will likely x-ray the patient soon today. In the meantime we'll continue suicidal precautions, continue GI and DVT prophylaxis, if transferred out of the ICU sometime today, she will have a sitter, and she would have a psychiatric consultation and she will remain on suicidal precautions while inpatient. Time with Patient: Greater than 30
[2017-12-19] MEDS: SODIUM CHLORIDE 0.9% 1,000 ML IV SCH (15:48)
[2017-12-19 20:46] LABS: ALT 30 U/L (9-52); AST 24 U/L (14-36); Alkaline Phosphatase 69 U/L (38-126); Anion Gap 9 mmol/L; Blood Urea Nitrogen 7 mg/dL (7-17); Calcium 8.4 mg/dL (8.4-10.2); Carbon Dioxide 24 mmol/L (22-30); Chloride 108 mmol/L (98-107); Glucose 92 mg/dL (74-99); Magnesium 2.1 mg/dL (1.6-2.3); Potassium 3.9 mmol/L (3.5-5.1); Sodium 141 mmol/L (137-145); Total Bilirubin 0.3 mg/dL (0.2-1.3); Total Protein 5.2 g/dL (6.3-8.2)
[2017-12-19] MEDS ORDERED: Potassium Replacement Protocol 1 EACH MISC MISCELLANE PRN (20:54)
[2017-12-19] MEDS ORDERED: CALCIUM CHLORIDE 1,000 MG in SODIUM CHLORIDE 0.9% 100 ML IVPB STA (20:55)
[2017-12-19] MEDS ORDERED: POTASSIUM CHLORIDE ER 20 MEQ TAB.ER PO SCH (21:00)
--- NOTE | 2017-12-19 22:37 | CONS ---
CONSULTATION DATE OF SERVICE: 12/19/2017. IDENTIFYING DATA: A 42-year-old single female patient. HISTORY OF PRESENT ILLNESS: Ms. Rosa is admitted to the ICU at [facility], status post Wellbutrin overdose. Per chart history, she is lethargic after overdose and needed intubation. The patient states that 2 weeks ago, she had an inpatient psychiatric hospitalization. She says that she drank and took aspirin per chart history. It was a Tylenol overdose. She was apparently discharged from that admission on December 10. She had been started on Wellbutrin 150 mg, which was increased to 300 mg on the inpatient psychiatric unit. When she followed up outpatient, she had it decreased to 150 mg daily because she was feeling side effects of feeling confused. She was also started on Prozac as an outpatient 10 mg daily. She was also weaning from Ativan at the same time. The patient is seen with her 2 sisters present. Per history, she was not herself for 7 days after she was discharged in the inpatient psychiatric unit. She started feeling paranoid. She felt 4 men were trying to get her at [facility]. She had called the police and was escorted home by the police. She called her sister, told her sister that she could not breathe and she had overdosed on approximately 20 Wellbutrin, does not really remember what she was thinking when she took the Wellbutrin. She per history told her sister that she knew that she could live with taking Wellbutrin and the only option was to end her life. PAST PSYCHIATRIC HISTORY: She had 1 previous inpatient psychiatric admission approximately 2 weeks ago, which was a Tylenol overdose. She has been seeing a counselor Tawnya at [facility]. Per chart history, history of ADHD with history of Adderall. They do state that she is on a treatment order right now. She has been dealing with bereavement of her son, who was 19, passing away 3 years ago. PSYCHIATRIC FAMILY HISTORY: Per chart history, family history of depression. ADDITIONAL PSYCHIATRIC HISTORY FOR PATIENT: She has been on Zoloft, Effexor, Lexapro, citalopram. Some of these made her worse. She admits to being a worrier. She has never had a prior history of hallucinations or paranoid thinking. She does also describe that she felt people in the ambulance were trying to hurt her. MEDICAL HISTORY: None significant known. CURRENT MEDICATIONS: 1. Lovenox. 2. LubriFresh ointment. 3. Narcan p.r.n. 4. Protonix. SOCIAL HISTORY: She has no legal trouble. She is currently unemployed, degree in health services administration, lives with her boyfriend, never been , had 1 child who is . DRUG AND ALCOHOL HISTORY: In the past had substance abuse. Some issue with prescription opiates, was in rehab 3 different times. Alcohol recently. She drank the day she went to [facility] for the 1st admission and then apparently drank alcohol 1 day after discharge. MENTAL STATUS EXAM: She is alert. She is seen with her 2 sisters present. She is cooperative with the interview. She denies any current paranoid thoughts. She describes her mood as fine. She denies any current thoughts of suicide. She says she is glad to be alive. She denies any thoughts of harm to others. She does not show any agitation. Cognitively, she appears to be grossly intact. IMPRESSION: 1. Major depressive disorder, recurrent. 2. Generalized anxiety disorder. 3. History of opioid use disorder. 4. Rule out alcohol use disorder. PLAN/RECOMMENDATIONS: I would recommend inpatient psychiatric hospitalization to stabilize after medical clearance. The patient relays that she may wish to be transferred to another facility. She will continue to consider. Will continue off of psychotropic medications at this point in time, status post overdose. Would look at possible alternative medication to help with depression. She has not responded or felt worse on many of the antidepressants, so would consider medications such as Lamictal. RUFUS / JV: [id number] /
[2017-12-20 06:39] VITALS: RESP 16; TEMP 98.4
[2017-12-20] MEDS: PEG 3350-NA SULF,BICARB,CL/KCL 4,000 ML BOTTLE PO SCH ×2 (06:40→06:41)
[2017-12-20] MEDS: PANTOPRAZOLE 40 MG/10 ML VIAL IV SCH (07:42)
[2017-12-20] MEDS: ENOXAPARIN 40 MG/0.4 ML SYRINGE SQ SCH (07:42)
[2017-12-20 07:55] LABS: Basophils % (A) 0 %; Eosinophils # (A) 0.1 k/uL (0-0.7); Eosinophils % (A) 1 %; HCT 34.4 % (34.0-46.0); HGB 11.4 gm/dL (11.4-16.0); Lymphocytes # (A) 1.6 k/uL (1.0-4.8); Lymphocytes % (A) 15 %; MCH 29.8 pg (25.0-35.0); MCV 90.2 fL (80.0-100.0); Mean Platelet Volume 6.9; Monocytes # (A) 0.5 k/uL (0-1.0); Monocytes % (A) 5 %; Neutrophils # (A) 7.9 k/uL (1.3-7.7); Neutrophils % (A) 77 %; Platelet Count 340 k/uL (150-450); RBC 3.82 m/uL (3.80-5.40); RDW 13.3 % (11.5-15.5); WBC 10.2 k/uL (3.8-10.6)
[2017-12-20 08:12] LABS: Anion Gap 10 mmol/L; Blood Urea Nitrogen 6 mg/dL (7-17); Calcium 8.6 mg/dL (8.4-10.2); Carbon Dioxide 24 mmol/L (22-30); Chloride 105 mmol/L (98-107); Glucose 88 mg/dL (74-99); Magnesium 1.9 mg/dL (1.6-2.3); Potassium 3.8 mmol/L (3.5-5.1); Sodium 139 mmol/L (137-145)
[2017-12-20] MEDS: SODIUM CHLORIDE 0.9% 1,000 ML IV SCH ×2 (09:56→09:57)
[2017-12-20 15:22] VITALS: BP 99/58; PULSE 80
--- NOTE | 2017-12-20 16:18 | P.PN ---
Subjective Progress Note Date: 12/20/17 Principal diagnosis: Wellbutrin overdose, intentional This is a 42-year-old female presented to the ER yesterday with intentional overdose. Around 4 PM, patient called her mother and sister, and told them that she was committing suicide with Wellbutrin. EMS was called, and patient was brought into the emergency room. Patient could not provide much history at the time of presentation, she was extremely restless and agitated, she is known to have history of psychiatric disorder, and attempted suicide about 7 days ago. She had a bottle of Wellbutrin which was empty, and it was last filled on 12/10/2017. Patient was intubated in the ER shortly after she arrived, poison control was notified, and recommended stomach lavage and charcoal. Patient was admitted to the intensive care unit last night, she was on mechanical ventilation, and I saw her this morning were and she was still on mechanical ventilation, after my evaluation, patient was given a trial of pressure support and CPAP, and I felt that I would likely extubate the patient in the next couple of hours. Chest x-ray was reviewed, labs were all reviewed, and the patient was switched to pressure support and CPAP. Patient was reevaluated today on 12/20/2017, doing well, asymptomatic, no cough no wheezing no shortness of breath, seen by psychiatry, and recommended psychiatric admission. Patient at this point is doing well from the pulmonary perspective, and she is being followed by multiple consultants including internal medicine. Labs were reviewed, she had a relatively normal metabolic profile and normal CBC. Objective - Vital Signs Vital signs: Vital Signs Temp 98.4 F 12/20/17 15:00 Pulse 80 12/20/17 15:00 Resp 16 12/20/17 15:13 BP 99/58 12/20/17 15:00 Pulse Ox 97 12/20/17 16:14 Intake & Output 12/19/17 12/20/17 12/20/17 18:59 06:59 18:59 Intake Total 1061.483 220 Output Total 1095 Balance -33.517 220 Intake: IV 1000 220 Sodium Chloride 0.9% 1, 1000 220 000 ml @ 100 mls/hr IV . Q10H [facility] Rx#:[id number] Intake, IV Titration 61.483 Amount Propofol 1,000 mg In 61.483 Empty Bag 1 bag @ Titrate IV .Q0M [facility] Rx#: [id number] Output: Urine 1095 Other: Voiding Method Indwelling Catheter Toilet Toilet # Voids 1 1 - Exam Physical Exam: Revealed a 42-year-old female in no distress. Very pleasant. Head: Atraumatic, normocephalic. HEENT:[Neck is supple.] [No neck masses.] [No thyromegaly.] [No JVD.] Chest: [Clear throughout, no crackles, no rhonchi, no wheezes.] Cardiac Exam: [Normal S1 and S2, no S3 gallop, no murmur.] Abdomen: [Soft, nontender, no megaly, no rebound, no guarding, normal bowel sounds.] Extremities: [No clubbing, no edema, no cyanosis.] Neurological Exam: [No focal neurologic deficit.] Psychiatric: Normal mood affect and mental status examination. Lymphatics: No lymphadenopathy. [place] skeletal: Normal range of motion, no deformities. - Labs CBC & Chem 7: 12/20/17 07:08 12/20/17 07:08 Labs: Abnormal Lab Results - Last 24 Hours (Table) 12/19/17 12/20/17 12/20/17 Range/Units 20:16 07:08 07:08 Neutrophils # 7.9 H (1.3-7.7) k/uL Chloride 108 H (98-107) mmol/L BUN 6 L (7-17) mg/dL Total Protein 5.2 L (6.3-8.2) g/dL Albumin 3.0 L (3.5-5.0) g/dL Microbiology - Last 24 Hours (Table) 12/18/17 16:40 Blood Culture - Preliminary Blood No Growth after 24 hours 12/18/17 23:00 Gram Stain - Preliminary Sputum Sputum Culture - Preliminary Assessment and Plan Assessment: Impression: 1 Acute hypoxic respiratory failure secondary to Wellbutrin overdose. Quantity unknown. Patient was extubated uneventfully on 12/19/2017, and she is doing well. 2 severe depression, with suicidal ideations. 3 suicidal attempts with Wellbutrin overdose 4 chronic nicotine dependence syndrome. Recommendation: Continue present treatment plan as per psychiatry and internal medicine on the case, we will sign off and see the patient on when necessary basis. Time with Patient: Less than 30
--- NOTE | 2017-12-20 17:49 | PN ---
PROGRESS NOTE DATE OF SERVICE: 12/19/17. PRESENTING COMPLAINT: Overdose. INTERVAL HISTORY: This patient was seen by me yesterday in the ICU 12/19/17. The patient is status post intentional overdose with Wellbutrin. The patient is extubated this morning, awake, lying in bed, has a sitter in place. Does feel a bit low and depressed. Tired. The patient had not eaten anything up to now. REVIEW OF SYSTEMS: Done for constitutional, cardiovascular, GI, pulmonary; relevant findings as above. CURRENT MEDICATIONS: Reviewed. EXAMINATION: Temperature 99.2, pulse 76, respirations 13, blood pressure 107/55, pulse ox 99% on 2 L. GENERAL APPEARANCE: Lying in bed, awake, tired-appearing. EYES: Pupils equal. Conjunctivae normal. HEENT: External nose and ears normal. Oral cavity normal. NECK: JVD unable to assess. Mass not palpable. RESPIRATORY: Effort normal. Lungs, fair entry. CARDIOVASCULAR: First and second sounds, no edema. ABDOMEN: Soft, nontender. Liver and spleen not palpable. PSYCHIATRY: Alert and oriented x3. Mood and affect slightly low appearing. NEUROLOGICAL: Moving all 4 limbs. INVESTIGATIONS: White count 15, hemoglobin 11.8, potassium 4.3. ASSESSMENT: 1. Acute Wellbutrin overdose unknown quantity, status post charcoal. 2. Acute respiratory failure from central depression, status post ventilator support, now extubated. 3. Chronic nicotine dependence. Patient is a cigarette smoker. 4. Major depression with suicidal ideation. PLAN: When I saw the patient, awaiting input from Psychiatry. I had a very lengthy talk with the patient about different aspects of life. Patient ready to get psychiatry help. She understands she needs to do better and ready take medication support. Total time spent was about 40 minutes with over 25 minutes of discussion. Smoking cessation counseling was done. The patient on strongly think about discontinuing smoking. More than 3 minutes was spent in smoke cessation counseling. MMODL / IJN: [id number] /
--- NOTE | 2017-12-20 19:29 | DS ---
DISCHARGE SUMMARY DATE OF ADMISSION: December 18, 2017. DATE OF DISCHARGE: December 20, 2017. FINAL DIAGNOSES: 1. Acute Wellbutrin overdose. 2. Acute respiratory failure from central depression from Wellbutrin, requiring ventilator assistance. 3. Chronic nicotine dependence, patient is a cigarette smoker. 4. Major depression with suicidal ideation. CONSULTATION: Dr. Hollingsworth, Psychiatry. HOSPITAL COURSE: The patient felt very depressed, took overdose of Wellbutrin, was depressed, charcoal was given, had to be intubated and was in the ICU, came out of the ICU yesterday. Did tolerate some diet. The patient was somewhat reluctant to go back prescribed Wellbutrin from there, she was having side affects. I had a very lengthy talk with the patient that any medication has side effects and there is not the wrong intention of the physician. Any medication can have that and a different facility will not change that because we have to try different medications. The patient finally is agreeable to go down to the psychiatry unit. She has a sitter. PHYSICAL EXAMINATION: Lungs are clear. Cardiovascular: 1st and 2nd sounds normal. Mood affect better than yesterday. DISCHARGE MEDICATIONS: 1. Melatonin 5 mg q.h.s. p.r.n. 2. Nicotine patch 21. 3. Pepcid 20 mg b.i.d. DISPOSITION: 3 [facility] unit. The patient was seen by Dr. Hollingsworth from Psychiatry. Additional note: I spoke to the nurse in charge and EPS, will come to transfer the patient down. Discharge planning more than [address] Gibson. RUFUS / JV: [id number] /
[2017-12-21] MEDS ORDERED: PANTOPRAZOLE 40 MG TABLET PO SCH (07:30)
--- NOTE | 2017-12-23 14:19 | XR ---
EXAMINATION TYPE: XR chest 1V confirm line [facility] DATE OF EXAM: 12/18/2017 COMPARISON: 12/03/2017 HISTORY: Check line placement TECHNIQUE: Single frontal view of the chest is obtained. FINDINGS: Endotracheal tube appears in good position and is 4 cm from the pineda. Nasogastric tube i s noted. There are chest leads. Lungs are clear. There is no sign of pleural effusion. IMPRESSION: No cardiopulmonary disease. Heart and lungs are stable compared to old exam.
== END 2017-12-20 18:52 ==
LOC: EC 16:25 → INTOOBSV 18:08 → 6ICU 18:08 → 5MS5E 12-19 23:21 → UNDODISIN 12-20 18:52
PROVIDERS: ADMIT Hospitalist; ATTEND Hospitalist
PROC: 5A1945Z Respiratory Ventilation, 24-96 Consecutive Hours (ICD-10-PCS; principal; 2017-12-18)
PROC: 0BH18EZ Insertion of Endotracheal Airway into Trachea, Via Natural or Artificial Opening Endoscopic (ICD-10-PCS; principal; 2017-12-18)
DX: T43.292A Poisoning by other antidepressants, intentional self-harm, initial encounter (principal); J96.01 Acute respiratory failure with hypoxia; E87.2 Acidosis; F33.9 Major depressive disorder, recurrent, unspecified; F41.1 Generalized anxiety disorder; F90.9 Attention-deficit hyperactivity disorder, unspecified type; R45.851 Suicidal ideations; F22 Delusional disorders; D72.829 Elevated white blood cell count, unspecified; F17.210 Nicotine dependence, cigarettes, uncomplicated; R40.2142 Coma scale, eyes open, spontaneous, at arrival to emergency department; R40.2352 Coma scale, best motor response, localizes pain, at arrival to emergency department; R40.2232 Coma scale, best verbal response, inappropriate words, at arrival to emergency department; Z78.1 Physical restraint status; Z88.1 Allergy status to other antibiotic agents; Z79.899 Other long term (current) drug therapy; Z91.5 Personal history of self-harm; Z86.59 Personal history of other mental and behavioral disorders; Z82.49 Family history of ischemic heart disease and other diseases of the circulatory system; Z83.3 Family history of diabetes mellitus; Z81.8 Family history of other mental and behavioral disorders
CPT/HCPCS: 96376 ×2; 96361 ×3; 96372 ×2; 96375; 31500; 96374; 99291; 51702; 36415; 36600; 94760; 94003; 94002; 93005; 97161; 80053 ×2; 80048; 82330; 82248; 82550; 82805; 82803; 83605; 83690 ×2; 83735 ×2; 84100 ×2; 84484; 85025 ×3; 85610 ×2; 81001; 81025; 87040; 80306; 83520 ×2; 80320; 87070; 87205; 71045; 74018; 70450; G0378 ×3; J0330; J2060; J1650 ×2; J2250; J2704 ×3; C9113 ×2

== ENCOUNTER 2017-12-20 18:17 | Inpatient (IN) | payer MEDICAID ==
[2017-12-20] MEDS ORDERED: MAGNESIUM HYDROXIDE 2,400 MG/10 ML CUP PO PRN (19:36)
[2017-12-20 21:11] VITALS: BMI 27.3
[2017-12-20] MEDS: FAMOTIDINE 20 MG TAB PO SCH (22:14)
[2017-12-21] MEDS ORDERED: NICOTINE 21MG/24HR PATCH TRANSDERM SCH (09:00)
[2017-12-21] MEDS: FAMOTIDINE 20 MG TAB PO SCH ×2 (09:36→19:48)
[2017-12-21 09:48] LABS: Basophils % (A) 0 %; Eosinophils # (A) 0.2 k/uL (0-0.7); Eosinophils % (A) 2 %; HCT 38.8 % (34.0-46.0); HGB 12.9 gm/dL (11.4-16.0); Lymphocytes # (A) 1.3 k/uL (1.0-4.8); Lymphocytes % (A) 15 %; MCH 30.2 pg (25.0-35.0); MCHC 33.2 g/dL (31.0-37.0); MCV 90.8 fL (80.0-100.0); Mean Platelet Volume 7.5; Monocytes # (A) 0.3 k/uL (0-1.0); Monocytes % (A) 4 %; Neutrophils % (A) 78 %; Platelet Count 375 k/uL (150-450); RBC 4.27 m/uL (3.80-5.40); RDW 13.2 % (11.5-15.5)
[2017-12-21] MEDS: NICOTINE 7MG/24HR PATCH TRANSDERM SCH (09:56)
[2017-12-21 10:16] LABS: ALT 29 U/L (9-52); AST 24 U/L (14-36); Albumin 3.9 g/dL (3.5-5.0); Alkaline Phosphatase 77 U/L (38-126); Anion Gap 13 mmol/L; Blood Urea Nitrogen 13 mg/dL (7-17); Calcium 9.2 mg/dL (8.4-10.2); Carbon Dioxide 23 mmol/L (22-30); Chloride 107 mmol/L (98-107); Cholesterol 180 mg/dL (<200); Glucose 149 mg/dL (74-99); HDL Cholesterol 72 mg/dL (40-60); LDL Cholesterol,Calculated 87 mg/dL (0-99); Potassium 4.1 mmol/L (3.5-5.1); Sodium 143 mmol/L (137-145); Total Bilirubin 0.3 mg/dL (0.2-1.3); Total Protein 6.4 g/dL (6.3-8.2); Triglycerides 105 mg/dL (<150)
--- NOTE | 2017-12-21 15:11 | P.HP ---
Psychiatric H&P - . H&P Date: 12/21/17 History & Physical: IDENTIFYING DATA: The patient is a 42-year-old single female discharged from this unit on 12/10/2017 with the diagnoses of suicide attempt by acetaminophen overdose, complicated bereavement and ADHD (by history). HISTORY OF PRESENT ILLNESS: The EMS brought her to the emergency room on 2017 with a suspected intentional overdose. The patient was confused, restless and agitated. The family brought an empty vile of Wellbutrin 300 mg daily that was filled on 12/10/2017 and the second vile filled 12/15/2017 for 150 mg of Wellbutrin with 3 tablets left. (In addition to other medications including atorvastatin, meclizine, duloxetine, fluoxetine, vitamin D, omeprazole and sertraline). Her emergency room management required restraints and intramuscular Ativan. The notes reflect concerned about maintaining her airway. She was intubated and transferred to the ICU. Dr. Hollingsworth evaluated her and recommended transfer to psychiatric unit when she was medically stable. She was discharged from medicine service on 12/20/2017 and transferred to the psychiatric unit. She alleged that she had no recollection of intentionally overdosing on Wellbutrin. She talked about being unable to schedule a meeting with her outpatient therapist after her last discharge. The second day of discharge she alleged she met with her primary care provider. The nurse practitioner reduce the dose of Wellbutrin from 300 mg to 150 mg per day and added Prozac 20 mg per day. She talked about feeling feeling confused and have difficulty dating events over the week prior to admission. She remembers sometime last week becoming quickly frightened at a local [employer]. She developed a belief that men in the store were involved with human trafficking and they were following her. She alleged that she has no recollection of arriving in the emergency room and "woke up" when she was in the ICU. She denied drinking alcohol or using other drugs to get high, help her sleep or change her mood. Her UDS on presentation to the ED was less than 10 and only benzodiazepines were detected in her urine. With her permission, I spoke with her sister Maty. Maty stated that the patient was released on her birthday. When she came on hospital she drank alcohol. She also drank on her boyfriends birthday and day before his birthday. Maty thinks that she began drinking alcohol after she left the hospital and "probably" drank every day every day. Her sister reaffirmed that she has a history of alcohol use problems as well as abuse of prescription drugs including Adderall, Ativan and narcotic pain medication. The family knew that she was abusing Ativan because her boyfriend, who was prescribed Ativan found the medications missing. During the week prior to admission Maty stated that her sister was "not herself." She "couldn't talk" and "didn't make sense". At times she appeared to forget what she was talking about. During her boyfriends birthday alliance party she was "jittery." She couldn't scoop ice cream or cut the birthday cake. Maty stated that she had to help her with open her napkin. She didn't appear so as much intoxicated as confused. On prior to admission she stated she became acutely paranoi. She developed a belief that 4 men were following her in [facility]. She thought they were human traffickers. Her sister stated that she made a Facebook post on human trafficking and that someone was after her. Maty stated that she "created a scene" at [facility] and would not leave until "someone called the police." Maty stated she threw herself on the floor of the store and would not get up until police arrived. The police called her sister and informed her of the situation. The police stated that they did not find her intoxicated or impaired and allowed her to drive home. When Maty arrived at the home the door to her apartment was open. She told her sister that all the vehicles that were passing house and street were "human traffickers." Maty went to court on Thursday to obtain an order for involuntary treatment. She met with representatives of [facility] and spoke with the water chaser. She obtain a pickup order. At approximately 4:30 PM the patient called her sister and according to her Maty was "talking out of her mind". Maty talked about the patient "speaking in 2 voices". Sister described her as "speaking out of her mind". She complained her sister that she couldn't breathe. She told her sister she took Wellbutrin. The sister was concerned she may have attempted suicide and called the police. When the police arrived the police found laying in the driveway drooling and flapping her arms PAST PSYCHIATRIC HISTORY: According to Maty, she has a history of mental health problems beginning in late adolescence. She has a history of alcohol and drug abuse problems. The patient alleged that she was unable to schedule an appointment with a therapist after she left the hospital but according to the [facility] policy services representative she did not keep the appointment rescheduled after last discharge. Her therapist is Sveta Mena at [facility]. The patient is prescribed several antidepressant medications. PAST MEDICAL HISTORY: None. ALLERGIES: Cephalexin. SUBSTANCE USE HISTORY: She was admitted to residential substance abuse treatment program when she was 19 years old for the abuse of prescription opiate medications. She denied current abuse of drugs or alcohol. However, her sister reports continued use of alcohol and possibly a daily basis. FAMILY PSYCHIATRIC/SUBSTANCE USE HISTORY: She has a family history of depression.. LEGAL HISTORY: She denied current legal problems.. SOCIAL HISTORY: She was born in [facility] and raised by an intact family. She has 1 sister. She graduated from high school and received 2 associates degrees from [employer] about this degree from college. 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. She alleged she left because the work was "too stressful". She is single and had one child. The child at age 22 of a purported drug overdose. According to her sister Maty, the family raised her children because the patient's history of alcohol and drug use problems. At one point, Maty obtain guardianship of the child. The patient and her son had a difficult relationship. She father had history of drug use problems. MENTAL STATUS EXAM: She presented as a casually dressed and groomed 42-year-old female who was pleasant on approach. He made eye contact and attended to interview. She had no distinguishing features or prominent physical abnormalities. She had a bright facial expression. She is alert and oriented to person, place and time. She showed no abnormality of psychomotor activity. She did not demonstrate psychomotor agitation or retardation. She had a normal gait. Her speech was spontaneous with normal rate, rhythm and volume. She had no articulation difficulties. Her affect was blunted but stable and appropriate. She does not appear depressed or anxious. She denied current suicidal ideation or wishes. She denied homicidal ideation. She denied such depressive cognitions as hopelessness, helplessness or worthlessness. She did not express couldn't obsessions, ruminations, phobias, ideas reference, paranoid ideation or delusional thoughts. Her thinking was abstract and associations appeared coherent, logical and goal directed. She did not demonstrate clang associations, perseverations or neologisms. She denied hallucinations and did not appear to be responding to internal stimuli. Global impression of intellect is average to above. She has limited awareness or understanding of her illness. STRENGTHS: Supportive family, supportive significant other, stable housing. WEAKNESSES: Chronic and recurrent substance use IMPRESSION: She is a 42-year-old single female readmitted to the unit 7 days after discharge. She presented with a history of probable abuse and an overdose of Wellbutrin. Her family describe relapsed to alcohol and a marked change in her behavior. On the day prior to admission she developed a acute paranoid belief and appeared confused and disorganized. Her presentation is consistent with misuse of Wellbutrin and alcohol. During the interview she denied symptoms and minimizes severity of her behavior leading to this admission. Her family stressed her history of drug and alcohol use problems. She should be treated inpatient basis with multimodal therapy. Due to her history of abuse of prescription medications and current apparent absence of mood and anxiety symptoms I do not recommend prescription of psychotropic medication. Consider referral for residential substance abuse treatment. PRINCIPLE DIAGNOSIS: Suicide attempt by overdose of prescription medications, rule out antidepressant abuse, alcohol use disorder unspecified, history of psychostimulant use disorder, history of opiate disorder, rule out unspecified personality disorder RECOMMENDATION: Continue inpatient psychiatric hospitalization due to history of the overdose and suicide attempt. Suicide precautions. Consult medicine service for initial physical exam and medical history. back up worker obtained psychosocial history. Encourage participation in therapeutic groups and activities. Evaluate clinical status response to treatment daily basis. Allergies Allergy/AdvReac Type Severity Reaction Status Date / Time cephalexin [From Keflex] Allergy Unknown Verified 12/20/17 23:12 Vital Signs Temp 97.9 F 12/21/17 02:00 Pulse 96 12/21/17 02:00 Resp 18 12/21/17 02:00 BP 103/67 12/21/17 02:00 Pulse Ox Intake & Output 12/20/17 12/21/17 12/21/17 18:59 06:59 18:59 Weight 83.915 kg Laboratory Last Values WBC 9.0 k/uL (3.8-10.6) 12/21/17 09:07 RBC 4.27 m/uL (3.80-5.40) 12/21/17 09:07 Hgb 12.9 gm/dL (11.4-16.0) 12/21/17 09:07 Hct 38.8 % (34.0-46.0) 12/21/17 09:07 MCV 90.8 fL (80.0-100.0) 12/21/17 09:07 MCH 30.2 pg (25.0-35.0) 12/21/17 09:07 MCHC 33.2 g/dL (31.0-37.0) 12/21/17 09:07 RDW 13.2 % (11.5-15.5) 12/21/17 09:07 Plt Count 375 k/uL (150-450) 12/21/17 09:07 Neutrophils % 78 % 12/21/17 09:07 Lymphocytes % 15 % 12/21/17 09:07 Monocytes % 4 % 12/21/17 09:07 Eosinophils % 2 % 12/21/17 09:07 Basophils % 0 % 12/21/17 09:07 Neutrophils # 7.0 k/uL (1.3-7.7) 12/21/17 09:07 Lymphocytes # 1.3 k/uL (1.0-4.8) 12/21/17 09:07 Monocytes # 0.3 k/uL (0-1.0) 12/21/17 09:07 Eosinophils # 0.2 k/uL (0-0.7) 12/21/17 09:07 Basophils # 0.0 k/uL (0-0.2) 12/21/17 09:07 Sodium 143 mmol/L (137-145) 12/21/17 09:07 Potassium 4.1 mmol/L (3.5-5.1) 12/21/17 09:07 Chloride 107 mmol/L (98-107) 12/21/17 09:07 Carbon Dioxide 23 mmol/L (22-30) 12/21/17 09:07 Anion Gap 13 mmol/L 12/21/17 09:07 BUN 13 mg/dL (7-17) 12/21/17 09:07 Creatinine 0.60 mg/dL (0.52-1.04) 12/21/17 09:07 Est GFR (CKD-EPI)AfAm >90 (>60 ml/min/1.73 sqM) 12/21/17 09:07 Est GFR (CKD-EPI)NonAf >90 (>60 ml/min/1.73 sqM) 12/21/17 09:07 Glucose 149 mg/dL (74-99) H 12/21/17 09:07 Calcium 9.2 mg/dL (8.4-10.2) 12/21/17 09:07 Total Bilirubin 0.3 mg/dL (0.2-1.3) 12/21/17 09:07 AST 24 U/L (14-36) 12/21/17 09:07 ALT 29 U/L (9-52) 12/21/17 09:07 Alkaline Phosphatase 77 U/L (38-126) 12/21/17 09:07 Total Protein 6.4 g/dL (6.3-8.2) 12/21/17 09:07 Albumin 3.9 g/dL (3.5-5.0) 12/21/17 09:07 Triglycerides 105 mg/dL (<150) 12/21/17 09:07 Cholesterol 180 mg/dL (<200) 12/21/17 09:07 LDL Cholesterol, Calc 87 mg/dL (0-99) 12/21/17 09:07 HDL Cholesterol 72 mg/dL (40-60) H 12/21/17 09:07 TSH 0.657 mIU/L (0.465-4.680) 12/21/17 09:07 12/21/17 13:56
[2017-12-21 19:41] LABS: Hemoglobin A1C 5.1 % (4.0-6.0)
[2017-12-21] MEDS: LORazepam 1 MG TAB PO PRN (19:48)
[2017-12-21] MEDS: MAG HYDROX/AL HYDROX/SIMETH 30 ML CUP PO PRN (19:48)
--- NOTE | 2017-12-21 19:48 | CONS ---
CONSULTATION DATE OF CONSULTATION: 12/21/2017 REASON FOR CONSULTATION: Medical management requested by Dr. Sterling. CONSULTATION: This is a 42-year-old patient who took an intentional overdose and was admitted to the hospital. She took several tablets of Wellbutrin. She was intubated, was extubated the next morning. Patient is a smoker. Patient was then transferred to the psychiatry unit. Patient did get charcoal in the ER. The patient now feels much better, less depressed; looks more perky. REVIEW OF SYSTEMS: CONSTITUTIONAL: None. HEENT: None. RESPIRATORY: None. CARDIOVASCULAR: None. GASTROINTESTINAL: None. GENITOURINARY: None. MUSCULOSKELETAL: None. DERMATOLOGICAL: None. HEMATOLOGICAL: None. LYMPHATICS: None. PSYCHIATRY: Depression. NEUROLOGICAL: None. PAST MEDICAL HISTORY: Depression, smoking. PAST SURGICAL HISTORY: on forehead removed. SOCIAL HISTORY: Patient had been living with her boyfriend until recently. Smoking a few cigarettes a day. FAMILY HISTORY: Diabetes, hypertension, myocardial infarction. HOME MEDICATIONS: Wellbutrin. ALLERGIES: KEFLEX. PHYSICAL EXAMINATION: Temperature 97.9, pulse 96, respiration 18, blood pressure 103/67, pulse ox 97%. GENERAL APPEARANCE: Average build. Lying in bed, more comfortable. EYES: Pupils equal. Conjunctivae normal. HEENT: External appearance of nose and ears normal. Oral cavity normal. NECK: JVD not raised. Mass not palpable. RESPIRATORY: Effort normal. Lungs are clear. CARDIOVASCULAR: First and second sounds normal. No edema. ABDOMEN: Soft, non-tender. Liver and spleen not palpable. PSYCHIATRY: Alert and oriented x3. Mood and affect normal. NEUROLOGICAL: Pupils equal. Cranial nerves grossly intact. Power and sensation grossly intact. INVESTIGATIONS: White count 9, hemoglobin 12.9 potassium 4.1. TSH is 0.657. ASSESSMENT: 1. Possible depression. 2. Chronic nicotine dependence. 3. Overdose with intention of suicide. PLAN: The patient has been put on a nicotine patch. Antidepressant will be decided by Psychiatry. Care was discussed with the patient. She should follow with a family doctor upon discharge. MMODL / IJN: [id number] /
[2017-12-22] MEDS: NICOTINE 7MG/24HR PATCH TRANSDERM SCH (08:21)
[2017-12-22] MEDS: FAMOTIDINE 20 MG TAB PO SCH ×2 (08:21→20:34)
[2017-12-22] MEDS: LORazepam 1 MG TAB PO PRN ×2 (08:22→17:58)
--- NOTE | 2017-12-22 12:12 | P.PN ---
Subjective Progress Note Date: 12/22/17 Principal diagnosis: Suicide attempt by overdose of prescription medications, rule out antidepressant abuse, alcohol use disorder unspecified, history of psychostimulant use disorder, history of opiate disorder, rule out unspecified personality disorder I reviewed the medical record, interviewed the patient and discuss her treatment and treatment plan during team meeting. She complained of feeling fatigued and tired. She denied feeling depressed or having thoughts of or suicide. She attributed to the confusion and her admission to an adverse reaction to Wellbutrin. We talked about my conversation with her sister Maty yesterday. She denied that she was drinking alcohol to the extent described by her sister. She admitted to having "a few drinks" on her birthday but denied that she had drank alcohol prior to her on the day of her boyfriend's birthday. She denied that she was taking more Wellbutrin than prescribed. She alleged that when she received the prescription for the 150 mg capsules of Wellbutrin from the physician promotions assistant sales marketing she disposed of the 300 mg tablets. She maintained that she was taking the Wellbutrin and Prozac as prescribed. She does not recall taking additional doses and denies that she had taken the medication in a suicide attempt. She initially denied that she had an appointment with her therapist after we discharged her. I obtained a copy of her discharged instructions and demonstrated that she had an appointment with her therapist the day after discharge. She did not attempt therapeutic groups or activities yesterday. She slept 6 hours last night. She has requested and received 2 doses of Ativan 1 mg for complaints of "anxiety". Objective - Vital Signs Vital signs: Vital Signs Temp 97.9 F 12/21/17 02:00 Pulse 96 12/21/17 02:00 Resp 18 12/21/17 02:00 BP 103/67 12/21/17 02:00 Pulse Ox - Psychiatric Psychiatric Comment(s): She presented as a casually dressed and groomed 42-year-old female who was pleasant on approach. He made eye contact and attended to interview. She had no distinguishing features or prominent physical abnormalities. She had a bright facial expression. She is alert and oriented to person, place and time. She showed no abnormality of psychomotor activity. She did not demonstrate psychomotor agitation or retardation. She had a normal gait. Her speech was spontaneous with normal rate, rhythm and volume. She had no articulation difficulties. Her affect was blunted but stable and appropriate. She does not appear depressed or anxious. She denied current suicidal ideation or wishes. She denied homicidal ideation. She denied such depressive cognitions as hopelessness, helplessness or worthlessness. She did not express obsessions, ruminations, phobias, ideas reference, paranoid ideation or delusional thoughts. Her thinking was abstract and associations appeared coherent, logical and goal directed. She did not demonstrate clang associations , perseverations or neologisms. She denied hallucinations and did not appear to be responding to internal stimuli. - Labs CBC & Chem 7: 12/21/17 09:07 12/21/17 09:07 Labs: Abnormal Lab Results - Last 24 Hours (Table) 12/21/17 Range/Units 09:07 Glucose 149 H (74-99) mg/dL HDL Cholesterol 72 H (40-60) mg/dL Assessment and Plan Assessment: For all, she appears mildly mentally ill and unchanged from admission. (1) Suicide attempt by other psychotropic drug overdose Current Visit: Yes Status: Acute Priority: High Code(s): T43.8X2A - POISONING BY OTH PSYCHOTROPIC DRUGS, SELF-HARM, INIT SNOMED Code(s): 93830568 (2) Antidepressant misuse Current Visit: Yes Status: Acute Priority: High Code(s): F19.90 - OTHER PSYCHOACTIVE SUBSTANCE USE, UNSPECIFIED, UNCOMPLICATED SNOMED Code(s): 976347997 (3) Alcohol use disorder Current Visit: Yes Status: Chronic Priority: Medium Code(s): [id number] - SNOMED Code(s): 47087520 (4) Amphetamine use disorder, moderate Current Visit: Yes Status: Chronic Priority: Medium Code(s): F15.20 - OTHER STIMULANT DEPENDENCE, UNCOMPLICATED SNOMED Code(s): 97744556 (5) Opioid use disorder, severe, in sustained remission Current Visit: Yes Status: Chronic Priority: Low Code(s): F11.21 - OPIOID DEPENDENCE, IN REMISSION SNOMED Code(s): 67488322 Plan: Continue inpatient psychiatric hospitalization due to the history of overdose and apparent suicide attempt. Hold psychotropic medications with the exception of Ativan 1 mg by mouth twice a day when necessary for anxiety. Encourage participation in therapeutic groups and activities. Evaluate clinical status response to treatment daily basis.
[2017-12-22] MEDS: MAG HYDROX/AL HYDROX/SIMETH 30 ML CUP PO PRN (17:57)
[2017-12-23] MEDS: NICOTINE 7MG/24HR PATCH TRANSDERM SCH (08:35)
[2017-12-23] MEDS: FAMOTIDINE 20 MG TAB PO SCH ×2 (08:35→21:10)
[2017-12-23] MEDS: MAG HYDROX/AL HYDROX/SIMETH 30 ML CUP PO PRN (08:36)
[2017-12-23] MEDS: LORazepam 1 MG TAB PO PRN ×3 (08:36→23:43)
[2017-12-23] MEDS: ACETAMINOPHEN TAB 325 MG TAB PO PRN (11:06)
--- NOTE | 2017-12-23 12:15 | P.PN ---
Subjective Progress Note Date: 12/23/17 Principal diagnosis: Suicide attempt by overdose of prescription medications, rule out antidepressant abuse, alcohol use disorder unspecified, history of psychostimulant use disorder, history of opiate disorder, rule out unspecified personality disorder I reviewed the medical record, interviewed the patient and discuss her treatment and treatment plan during team meeting. She denied complaints or concerns. She denied feeling depressed, hopeless, helpless or anxious. She stated that she feels "back to normal." She continues to deny that she had intentionally overdosed on the antidepressant medications. She again stated that the week prior to current admission was a "blur" and she does not remember specific times or dates. She attributes her confusion over the week prior to admission n to the adverse effect of taking Wellbutrin and Prozac. I explained that her admission to the unit was involuntary. We submitted a "demand for hearing" because she had deferred her probate hearing during a prior hospital admission. She will have a probate hearing scheduled for next week She did not attempt therapeutic groups or activities yesterday. She slept 7 hours last night. She has requested and received 2 doses of Ativan 1 mg for complaints of anxiety. Objective - Vital Signs Vital signs: Vital Signs Temp 98 F 12/23/17 06:13 Pulse 67 12/23/17 06:13 Resp 18 12/23/17 06:13 BP 109/67 12/23/17 06:13 Pulse Ox - Psychiatric Psychiatric Comment(s): She presented as a casually dressed and groomed 42-year-old female who was pleasant on approach. He made eye contact and attended to interview. She had no distinguishing features or prominent physical abnormalities. She had a bright facial expression. She is alert and oriented to person, place and time. She showed no abnormality of psychomotor activity. She did not demonstrate psychomotor agitation or retardation. She had a normal gait. Her speech was spontaneous with normal rate, rhythm and volume. She had no articulation difficulties. Her affect was bright, stable and appropriate. She does not appear depressed or anxious. She denied current suicidal ideation or wishes. She denied homicidal ideation. She denied such depressive cognitions as hopelessness, helplessness or worthlessness. She did not express obsessions, ruminations, phobias, ideas reference, paranoid ideation or delusional thoughts. Her thinking was abstract and associations appeared coherent, logical and goal directed. She denied hallucinations and did not appear to be responding to internal stimuli. - Labs CBC & Chem 7: 12/21/17 09:07 12/21/17 09:07 Assessment and Plan Assessment: She appears minimally mentally ill and much improved from admission. (1) Suicide attempt by other psychotropic drug overdose Current Visit: Yes Status: Acute Priority: High Code(s): T43.8X2A - POISONING BY OTH PSYCHOTROPIC DRUGS, SELF-HARM, INIT SNOMED Code(s): 58130003 (2) Antidepressant misuse Current Visit: Yes Status: Acute Priority: High Code(s): F19.90 - OTHER PSYCHOACTIVE SUBSTANCE USE, UNSPECIFIED, UNCOMPLICATED SNOMED Code(s): 495164665 (3) Alcohol use disorder Current Visit: Yes Status: Chronic Priority: Medium Code(s): [id number] - SNOMED Code(s): 49136467 (4) Amphetamine use disorder, moderate Current Visit: Yes Status: Chronic Priority: Medium Code(s): F15.20 - OTHER STIMULANT DEPENDENCE, UNCOMPLICATED SNOMED Code(s): 76630860 (5) Opioid use disorder, severe, in sustained remission Current Visit: Yes Status: Resolved Priority: Low Code(s): F11.21 - OPIOID DEPENDENCE, IN REMISSION SNOMED Code(s): 54100468 Plan: Continue inpatient psychiatric hospitalization due to the history of overdose and apparent suicide attempt. Probate hearing pending. Hold psychotropic medications with the exception of Ativan 1 mg by mouth twice a day when necessary for anxiety. Encourage participation in therapeutic groups and activities. Evaluate clinical status response to treatment daily basis.
[2017-12-24] MEDS: LORazepam 1 MG TAB PO PRN ×3 (08:18→21:01)
[2017-12-24] MEDS: NICOTINE 7MG/24HR PATCH TRANSDERM SCH (08:18)
[2017-12-24] MEDS: FAMOTIDINE 20 MG TAB PO SCH ×2 (08:18→21:01)
--- NOTE | 2017-12-24 11:18 | P.PN ---
Progress Note - Text Progress Note Date: 12/24/17 Patient was seen for follow-up examination in cross coverage for Dr. Sterling. Patient does not have any specific complaint or concerns except for her court hearing on the . Currently she is not on any medication. She has been attending groups, socializes with peers and interacts with staff. No violent or self abusive behavior. This is a white ambulatory female with good hygiene. She does not show any psychomotor agitation or retardation. Her speech is spontaneous relevant and goal-directed. Her mood is cheerful and affect is appropriate. She denies hallucinations, delusional thinking, suicidal and homicidal thoughts. She is well oriented with good memory concentration general fund of knowledge etc. Plan: Continue groups and other therapies, officer for mood changes, self abusive/suicide behavior etc.
[2017-12-24] MEDS: MENTHOL (NICE) LOZENGE MUCOUS MEM PRN ×3 (15:12→19:30)
[2017-12-24] MEDS: MAG HYDROX/AL HYDROX/SIMETH 30 ML CUP PO PRN (17:53)
[2017-12-25] MEDS: FAMOTIDINE 20 MG TAB PO SCH ×2 (08:55→20:05)
[2017-12-25] MEDS: NICOTINE 7MG/24HR PATCH TRANSDERM SCH (08:55)
[2017-12-25] MEDS: LORazepam 1 MG TAB PO PRN ×2 (08:56→16:00)
[2017-12-25] MEDS: MENTHOL (NICE) LOZENGE MUCOUS MEM PRN ×2 (13:53→20:06)
[2017-12-25] MEDS: ACETAMINOPHEN TAB 325 MG TAB PO PRN (13:53)
--- NOTE | 2017-12-25 14:29 | P.PN ---
Subjective Progress Note Date: 12/25/17 Principal diagnosis: Suicide attempt by overdose of prescription medications, rule out antidepressant abuse, alcohol use disorder unspecified, history of psychostimulant use disorder, history of opiate disorder, rule out unspecified personality disorder I reviewed the medical record, interviewed the patient and discuss her treatment and treatment plan during team meeting. She denied complaints or concerns. She denied feeling depressed, hopeless, helpless or anxious. She stated that she feels "back to normal." She continues to deny that she had intentionally overdosed on the antidepressant medications. She She is attended all therapeutic groups or activities yesterday and today. She slept 7 hours last night. She has requested and received 3 doses of Ativan 1 mg for complaints of anxiety. Objective - Vital Signs Vital signs: Vital Signs Temp 98 F 12/25/17 06:10 Pulse 62 12/25/17 06:10 Resp 16 12/25/17 06:10 BP 97/56 12/25/17 06:10 Pulse Ox - Psychiatric Psychiatric Comment(s): She presented as a casually dressed and groomed 42-year-old female who was pleasant on approach. He made eye contact and attended to interview. She had no distinguishing features or prominent physical abnormalities. She had a bright facial expression. She was alert and oriented to person, place and time. She showed no abnormalities of psychomotor activity. She did not demonstrate psychomotor agitation or retardation. She had a normal gait. Her speech was spontaneous with normal rate, rhythm and volume. She had no articulation difficulties. Her affect was bright, stable and appropriate. She does not appear depressed or anxious. She denied current suicidal ideation or wishes. She denied homicidal ideation. She denied such depressive cognitions as hopelessness, helplessness or worthlessness. She did not express obsessions, ruminations, phobias, ideas reference, paranoid ideation or delusional thoughts. Her thinking was abstract and associations appeared coherent, logical and goal directed. She denied hallucinations and did not appear to be responding to internal stimuli. - Labs CBC & Chem 7: 12/21/17 09:07 12/21/17 09:07 Assessment and Plan Assessment: She appears minimally mentally ill and much improved from admission. (1) Suicide attempt by other psychotropic drug overdose Current Visit: Yes Status: Acute Priority: High Code(s): T43.8X2A - POISONING BY OTH PSYCHOTROPIC DRUGS, SELF-HARM, INIT SNOMED Code(s): 58585193 (2) Antidepressant misuse Current Visit: Yes Status: Acute Priority: High Code(s): F19.90 - OTHER PSYCHOACTIVE SUBSTANCE USE, UNSPECIFIED, UNCOMPLICATED SNOMED Code(s): 845357643 (3) Alcohol use disorder Current Visit: Yes Status: Chronic Priority: Medium Code(s): XON9234 - SNOMED Code(s): 29019854 (4) Amphetamine use disorder, moderate Current Visit: Yes Status: Chronic Priority: Medium Code(s): F15.20 - OTHER STIMULANT DEPENDENCE, UNCOMPLICATED SNOMED Code(s): 32086180 (5) Opioid use disorder, severe, in sustained remission Current Visit: Yes Status: Resolved Priority: Low Code(s): F11.21 - OPIOID DEPENDENCE, IN REMISSION SNOMED Code(s): 57676027 Plan: Continue inpatient psychiatric hospitalization due to the history of overdose and apparent suicide attempt. Probate hearing pending. Hold psychotropic medications with the exception of Ativan 1 mg by mouth twice a day when necessary for anxiety. Encourage participation in therapeutic groups and activities. Evaluate clinical status response to treatment daily basis.
[2017-12-26] MEDS: NICOTINE 7MG/24HR PATCH TRANSDERM SCH (08:36)
[2017-12-26] MEDS: LORazepam 1 MG TAB PO PRN ×3 (08:37→23:33)
[2017-12-26] MEDS: FAMOTIDINE 20 MG TAB PO SCH ×2 (08:37→20:11)
--- NOTE | 2017-12-26 11:43 | P.PN ---
Progress Note - Text Interval history: The patient is found in the hallway she follows me to an interview room. She was admitted due to a medication overdose. She is currently on a demand for hearing and has court scheduled for next week. She is not on any antidepressant medication at this time. She indicates her mood is fine she states that she slept 9 hours last night appetite is stable. She is observed socializing with peers and attending groups. Mental status exam: The patient is a female appearing her stated age. She stressor own clothing hygiene grooming are adequate. Eye contact is appropriate speech is fluent spontaneous nonpressured. Thought process is linear she demonstrates no tangential thinking loose associations or flight of ideas. She is reporting no auditory or visual hallucinations or any specific delusions. There is no observed evidence of psychosis. She demonstrate no verbal or physical aggressiveness. She is oriented to person place and date. Plan: The patient is encouraged to continue participating in the therapeutic milieu. We will monitor her for safety.
[2017-12-26] MEDS: MENTHOL (NICE) LOZENGE MUCOUS MEM PRN (16:46)
[2017-12-27] MEDS: LORazepam 1 MG TAB PO PRN ×3 (08:17→21:58)
[2017-12-27] MEDS: NICOTINE 7MG/24HR PATCH TRANSDERM SCH (08:17)
[2017-12-27] MEDS: FAMOTIDINE 20 MG TAB PO SCH ×2 (08:17→20:10)
--- NOTE | 2017-12-27 12:27 | P.PN ---
Progress Note - Text Interval history: The patient is found in her room she follows me to an interview room. She indicates she did not sleep last night due to disturbances from her roommate. She feels tired this morning. She otherwise states her mood is fine she denies having any suicidal ideation. She is prescribed no psychotropic medication at this time and does not feel she needs one. She is aware that she has court scheduled for this week. She has no questions or concerns for me this morning. Mental status exam: The patient is a tall overweight female appearing her stated age. She is dressed in her own clothing. Eye contact is appropriate speech is fluent spontaneous nonpressured. She reports no hopelessness thinking no suicidal or homicidal ideation intent or plan. She is reporting no auditory or visual hallucinations or specific delusions. She does not appear hypomanic or manic at this time. She demonstrates no verbal or physical aggressiveness she demonstrates no abnormal involuntary movements. She is fully oriented to person place and date. Plan: The patient's is encouraged to participate in the milieu. We will monitor her for safety. Vital signs reviewed.
[2017-12-27] MEDS: MENTHOL (NICE) LOZENGE MUCOUS MEM PRN (16:39)
[2017-12-28] MEDS: NICOTINE 7MG/24HR PATCH TRANSDERM SCH (08:21)
[2017-12-28] MEDS: FAMOTIDINE 20 MG TAB PO SCH ×2 (08:21→20:09)
[2017-12-28] MEDS: LORazepam 1 MG TAB PO PRN ×3 (08:22→21:29)
[2017-12-28] MEDS: MENTHOL (NICE) LOZENGE MUCOUS MEM PRN (14:53)
--- NOTE | 2017-12-28 15:24 | P.PN ---
Subjective Progress Note Date: 12/28/17 Principal diagnosis: Suicide attempt by overdose of prescription medications, rule out antidepressant abuse, alcohol use disorder unspecified, history of psychostimulant use disorder, history of opiate disorder, rule out unspecified personality disorder I reviewed the medical record, interviewed the patient and discuss her treatment and treatment plan during team meeting. She denied complaints or concerns. She denied feeling depressed, hopeless, helpless or anxious. She stated that she feels "back to normal." Again, she continues to deny that she had intentionally overdosed on the antidepressant medications. She is attendedmost therapeutic groups or activities yesterday and today. She slept 6 hours last night. She continues to request Ativan 1 mg for complaints of anxiety. Objective - Vital Signs Vital signs: Vital Signs Temp 97.8 F 12/28/17 05:53 Pulse 68 12/28/17 05:53 Resp 14 12/28/17 05:53 BP 110/64 12/28/17 02:49 Pulse Ox Intake & Output 12/27/17 12/28/17 12/28/17 18:59 06:59 18:59 Weight 87.6 kg - Psychiatric Psychiatric Comment(s): She presented as a casually dressed and groomed 42-year-old female who was pleasant on approach. He made eye contact and attended to interview. She had no distinguishing features or prominent physical abnormalities. She had a bright facial expression. She was alert and oriented to person, place and time. She showed no abnormalities of psychomotor activity. She did not demonstrate psychomotor agitation or retardation. She had a normal gait. Her speech was spontaneous with normal rate, rhythm and volume. She had no articulation difficulties. Her affect was bright, stable and appropriate. She does not appear depressed or anxious. She denied current suicidal ideation or wishes. She denied homicidal ideation. She denied such depressive cognitions as hopelessness, helplessness or worthlessness. She did not express obsessions, ruminations, phobias, ideas reference, paranoid ideation or delusional thoughts. Her thinking was abstract and associations appeared coherent, logical and goal directed. She denied hallucinations and did not appear to be responding to internal stimuli. - Labs CBC & Chem 7: 12/21/17 09:07 12/21/17 09:07 Assessment and Plan Assessment: She appears minimally mentally ill and much improved from admission. (1) Suicide attempt by other psychotropic drug overdose Current Visit: Yes Status: Acute Priority: High Code(s): T43.8X2A - POISONING BY OTH PSYCHOTROPIC DRUGS, SELF-HARM, INIT SNOMED Code(s): 05374281 (2) Antidepressant misuse Current Visit: Yes Status: Acute Priority: High Code(s): F19.90 - OTHER PSYCHOACTIVE SUBSTANCE USE, UNSPECIFIED, UNCOMPLICATED SNOMED Code(s): 056230219 (3) Alcohol use disorder Current Visit: Yes Status: Chronic Priority: Medium Code(s): HYU5363 - SNOMED Code(s): 48661441 (4) Amphetamine use disorder, moderate Current Visit: Yes Status: Chronic Priority: Medium Code(s): F15.20 - OTHER STIMULANT DEPENDENCE, UNCOMPLICATED SNOMED Code(s): 26581635 (5) Opioid use disorder, severe, in sustained remission Current Visit: Yes Status: Resolved Priority: Low Code(s): F11.21 - OPIOID DEPENDENCE, IN REMISSION SNOMED Code(s): 63120852 Plan: Continue inpatient psychiatric hospitalization due to the history of overdose and apparent suicide attempt. Probate hearing scheduled for 12/30/2017. Hold psychotropic medications with the exception of Ativan 1 mg by mouth twice a day when necessary for anxiety. Encourage participation in therapeutic groups and activities. Evaluate clinical status response to treatment daily basis.
[2017-12-29] MEDS: NICOTINE 7MG/24HR PATCH TRANSDERM SCH (08:21)
[2017-12-29] MEDS: FAMOTIDINE 20 MG TAB PO SCH ×2 (08:21→20:52)
[2017-12-29] MEDS: LORazepam 1 MG TAB PO PRN ×3 (08:21→22:33)
--- NOTE | 2017-12-29 14:39 | P.PN ---
Subjective Progress Note Date: 12/29/17 Principal diagnosis: Suicide attempt by overdose of prescription medications, rule out antidepressant abuse, alcohol use disorder unspecified, history of psychostimulant use disorder, history of opiate disorder, rule out unspecified personality disorder I reviewed the medical record, interviewed the patient and discuss her treatment and treatment plan during team meeting. She complained of feeling tired (another patient was disruptive for most of the night). She denied complaints or concerns. She denied feeling depressed, hopeless, helpless or anxious. She stated that she feels "back to normal." She is attended most therapeutic groups or activities yesterday and today. She slept 5 hours last night. She continues to request Ativan 1 mg for complaints of anxiety. Objective - Vital Signs Vital signs: Vital Signs Temp 97.8 F 12/29/17 06:37 Pulse 57 L 12/29/17 06:37 Resp 18 12/29/17 06:37 BP 110/65 12/29/17 06:37 Pulse Ox 96 12/29/17 06:37 - Psychiatric Psychiatric Comment(s): She presented as a casually dressed and groomed 42-year-old female who was pleasant on approach. He made eye contact and attended to interview. She had a bright facial expression. She showed no abnormalities of psychomotor activity. She was not agitated or psychomotor slowed. She had a normal gait. Her speech was spontaneous with normal rate, rhythm and volume. She had no articulation difficulties. Her affect was bright, stable and appropriate. She does not appear depressed or anxious. She denied current suicidal ideation or wishes. She denied homicidal ideation. She denied such depressive cognitions as hopelessness, helplessness or worthlessness. She did not express obsessions, ruminations, phobias, ideas reference, paranoid ideation or delusional thoughts. Her thinking was abstract and associations appeared coherent, logical and goal directed. She denied hallucinations and did not appear to be responding to internal stimuli. - Labs CBC & Chem 7: 12/21/17 09:07 12/21/17 09:07 Assessment and Plan Assessment: She appears minimally mentally ill and much improved from admission. (1) Suicide attempt by other psychotropic drug overdose Current Visit: Yes Status: Acute Priority: High Code(s): T43.8X2A - POISONING BY OTH PSYCHOTROPIC DRUGS, SELF-HARM, INIT SNOMED Code(s): 27538866 (2) Antidepressant misuse Current Visit: Yes Status: Acute Priority: High Code(s): F19.90 - OTHER PSYCHOACTIVE SUBSTANCE USE, UNSPECIFIED, UNCOMPLICATED SNOMED Code(s): 042492676 (3) Alcohol use disorder Current Visit: Yes Status: Chronic Priority: Medium Code(s): RNU2659 - SNOMED Code(s): 60379476 (4) Amphetamine use disorder, moderate Current Visit: Yes Status: Chronic Priority: Medium Code(s): F15.20 - OTHER STIMULANT DEPENDENCE, UNCOMPLICATED SNOMED Code(s): 80329639 (5) Opioid use disorder, severe, in sustained remission Current Visit: Yes Status: Resolved Priority: Low Code(s): F11.21 - OPIOID DEPENDENCE, IN REMISSION SNOMED Code(s): 43741665 Plan: Continue inpatient psychiatric hospitalization pending the probate hearing. Probate hearing scheduled for 12/30/2017. Hold psychotropic medications with the exception of Ativan 1 mg by mouth twice a day when necessary for anxiety. Encourage participation in therapeutic groups and activities. Evaluate clinical status response to treatment daily basis.
[2017-12-30 06:48] VITALS: BP 102/61; PULSE 66; RESP 14; TEMP 97.9
[2017-12-30] MEDS: FAMOTIDINE 20 MG TAB PO SCH (08:28)
[2017-12-30] MEDS: NICOTINE 7MG/24HR PATCH TRANSDERM SCH (08:28)
[2017-12-30] MEDS: LORazepam 1 MG TAB PO PRN (08:29)
--- NOTE | 2017-12-30 12:15 | P.DS ---
Providers Date of admission: 12/20/17 18:56 Attending physician: Rick Sterling MD Consults: 12/20/17 19:36 Consult Physician Routine Consulting Provider: Raudel Montez Consult Reason/Comments: H&P for mental health admission Do you want consulting provider notified?: Yes Primary care physician: Rick Chávez Paige - Discharge Diagnosis(es) (1) Suicide attempt by other psychotropic drug overdose Current Visit: Yes Status: Acute Priority: High (2) Antidepressant misuse Current Visit: Yes Status: Acute Priority: High (3) Alcohol use disorder Current Visit: Yes Status: Chronic Priority: Medium (4) Amphetamine use disorder, moderate Current Visit: Yes Status: Chronic Priority: Medium (5) Opioid use disorder, severe, in sustained remission Current Visit: Yes Status: Resolved Priority: Low Hospital Course: The patient is a 42-year-old single female readmitted to the unit approximately one week after discharge. She was discharged from this unit on with the diagnoses of suicide attempt by overdose acetaminophen and alcohol, complicated bereavement and ADHD (by history). The EMS brought her to emergency room with a suspected intentional overdose of Wellbutrin and Prozac. In the emergency room she was confused, restless and agitated. Her emergency room management required restraint and intramuscular Ativan. The progress notes reflect concern about maintaining her and why. She was intubated and transferred to the ICU. She alleged no recollection of intentionally overdosing on her prescription medication. She talked about feeling confused during the weeks between her admissions. Apparently she went to her primary care provider complaining about the Wellbutrin. She did not keep her appointment with her outpatient therapist. The primary care provider reduced her Wellbutrin from 300 to 150 mg and added Prozac 20 mg per day. I spoke with her sister, Maty. Maty express concern about her sister's alcohol use. She also her history of abuse of Adderall, Ativan and narcotic pain medications. Maty noticed that she seemed "jittery" and confused. Maty described an incident at a local store where the patient developed a paranoid belief that form and were attempting to abduct her. On the telephone she told Maty that she was taking "10 tablets of Wellbutrin." We admitted her to the psychiatric unit after she was medically stable and discharged from the ICU. We provided a comprehensive biopsychosocial assessment. The senior compensation consultant consumer science teacher completed initial physical exam and medical history. The consumer science teacher diagnosis tobacco use disorder and an overdose with intention of suicide. She participated in therapeutic groups and activities. She posed no management problem and required no emergency medications for behavioral dyscontrol. We did not continue or prescribed medications with the exception of when necessary lorazepam. We are concerned about her history of overdose and misuse of prescription medications including antidepressants. Because she was discharged following a Deferral of a probate hearing, we submitted a Demand for hearing. During the hospital stay she repeatedly denied that she had intentionally overdosed on prescription medication. She alleged that she had disposed of the 300 mg tablets of Wellbutrin (but kept the bottle). She alleged that she took the lower strength Wellbutrin and Prozac as prescribed. She attributed her behavior to confusion from the combination of Wellbutrin and Prozac. During the entire hospital stay she denied feeling depressed, hopeless or helpless. She denied having thoughts of or suicide. At the time discharge she presented as a casually dressed and groomed 42-year- old female who was pleasant on approach. She made eye contact and attended to the interview. She had no distinguishing features or prominent physical abnormalities. She had a blunted but bright facial expression. She is alert and oriented to person, place and time. She showed no abnormality of psychomotor activity. Her speech was spontaneous with normal rate, rhythm and volume. Affect was blunted but stable and appropriate. She denied suicidal ideation, wishes or homicidal ideation. She denied such depressive cognitions as hopelessness, helplessness or worthlessness. She did not express ideas reference, paranoid ideation or delusional thoughts. Her thinking was abstract and associations were coherent, logical and goal directed. She denied hallucinations and did not appear to be responding to internal stimuli. Patient Condition at Discharge: Stable Plan - Discharge Summary Discharge Rx Participant: No Follow up Appointment(s)/Referral(s): [facility] [Outside] - 1-2 Days (walk in intake: Today [phone] [phone] 1200 Thursday 830 - 300) Discharge Disposition: HOME SELF-CARE
== END 2017-12-30 14:39 | disposition home or self-care (01) | DRG 881 ==
LOC: 3MHU 18:56
PROVIDERS: ADMIT Psychiatry & Neurology Psychiatry; ATTEND Psychiatry & Neurology Psychiatry
DX: F32.9 Major depressive disorder, single episode, unspecified (principal); F15.20 Other stimulant dependence, uncomplicated; F10.10 Alcohol abuse, uncomplicated; F17.210 Nicotine dependence, cigarettes, uncomplicated; F11.21 Opioid dependence, in remission; F41.9 Anxiety disorder, unspecified; F90.9 Attention-deficit hyperactivity disorder, unspecified type; Z91.5 Personal history of self-harm; Z83.3 Family history of diabetes mellitus; Z82.49 Family history of ischemic heart disease and other diseases of the circulatory system; Z81.8 Family history of other mental and behavioral disorders; Z79.899 Other long term (current) drug therapy; Z88.1 Allergy status to other antibiotic agents; Z56.0 Unemployment, unspecified
CPT/HCPCS: 80053; 80061; 83036; 84443; 85025

== ENCOUNTER → 2018-12-29 | Outpatient (CLI) | payer OTHER ==
[2018-12-29 08:47] VITALS: BP 135/93; PULSE 82; RESP 16; TEMP 98.3; BMI 30.2
--- NOTE | 2018-12-29 11:10 | P.HPOB ---
History of Present Illness H&P Date: 12/29/18 Chief Complaint: The patient is here for routine gynecologic exam. This is a 43-year-old with an LMP of 12/22/2018. The patient is here to establish with this office. It has been about 3 years since her last pelvic exam. She has been using condoms for control. She states that her menstrual periods have gotten much heavier and longer in the last 4 months. Menarche was at age 16. Menses were regular every month lasting 5 to 6 days with normal flow. In 2016, they started giving gradually heavier and longer. They would typically last about 10 days. During the last 4 months the menstrual periods have been monthly, but they have been lasting 2 weeks with 5 days of heavy flow where she has to change your protection every hour. She denies any significant pain with the menstrual periods. During the last 4 months, she has also noticed a daily vaginal discharge which is clear without order and she denies pruritus or irritation. She denies any new sexual partners since 2014. Review of Systems She had gained about 50 pounds following her son's in 2014. More recently, she has lost 12 of those pounds with dietary changes. She denies respiratory, cardiac, or G.I. problems. 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 One vaginal delivery(son ) History of Any Multi-Drug Resistant Organisms: None Reported Additional Past Surgical History / Comment(s): Birthmark to forehead removed. VTP. Past Anesthesia/Blood Transfusion Reactions: No Reported Reaction Past Psychological History: ADD/ADHD, Anxiety, Depression Additional Psychological History / Comment(s): pt lives with her boyfriend girish, does'nt work outside the home. normally is independant. She sees a counselor for grief counseling following her son's . Smoking Status: Light tobacco smoker (2 cigarettes per day) Past Alcohol Use History: None Reported Additional Past Alcohol Use History / Comment(s): started smoking 1996 smokes 1 ppd. family stated that pt drinks daily but hides the amount that she drinks Past Drug Use History: Marijuana Additional Drug Use History / Comment(s): Patient had used marijuana as a teenager but denies use after the age of 21. Additional History: She is single and has been with her boyfriend since 2014. They lived together. She is currently not working outside the home. - Past Family History Father Family Medical History: Diabetes Mellitus, Hypertension, Myocardial Infarction ([place]) Mother Family Medical History: No Reported History Son(s) Family Medical History: No Reported History Additional Family Medical History / Comment(s): . Medications and Allergies Home Medications Medication Instructions Recorded Confirmed Type Cholecalciferol (Vitamin D3) 2,000 unit PO 12/29/18 History [Vitamin D3] Dextroamphetamine/Amphetamine 30 mg PO BID 12/29/18 12/29/18 History [Adderall] [place]-3 Fatty Acids/Fish Oil [Fish 1 each PO 12/29/18 History Oil 1,000 mg Softgel] Vitamin B Complex 1 each PO 12/29/18 History Allergies Allergy/AdvReac Type Severity Reaction Status Date / Time cephalexin [From Keflex] Allergy Unknown Verified 12/29/18 08:41 Exam Vital Signs Temp Pulse Resp BP Pulse Ox 12/29/18 08:44 98.3 F 82 16 135/93 97 Intake and Output 12/28/18 12/29/18 12/29/18 22:59 06:59 14:59 Other: Weight 90.265 kg Height 5'8", weight 199 pounds, BMI 30.3. This is a well-developed well-nourished white female who is alert and oriented times 3 in no acute distress. HEENT: Within normal limits. NECK: Supple without mass or thyromegaly. CHEST AND LUNGS: Clear to auscultation. HEART: Regular rate and rhythm. BREASTS: Are without mass or discharge. AXILLARY EXAM: Negative for adenopathy. BACK: Negative for CVA tenderness. ABDOMEN: Soft, nontender, without palpable masses. PELVIC EXAM: Normal external genitalia. The vagina mucosa appears normal and the vagina is above average in length. There is a moderate amount of watery discharge within the vagina that is clear and thin without odor. There is approximately 2 tablespoons of fluid within the back of the vagina. The cervix has a normal ectocervix. Within the cervical canal there seems to be a mass within the endocervix with a color similar to that of the ectocervix. The cervix is very friable and the blood seems to be coming from the inner cervix. There is no unusual discharge. There is no evidence of prolapse. The uterus is midposition, 8-10 week size and nontender. There are no palpable adnexal masses or tenderness. RECTAL EXAM: negative for mass or tenderness. Occult blood testing was not performed because there was a moderate amount of blood coming from the cervix and vagina following the vaginal exam. EXTREMITIES: Nontender. Saline wet mount: Negative for trichomonas or clue cells. No hyphae are visualized. White blood cells are noted. IMPRESSION: 1. 43-year-old female with worsening menorrhagia consisting of 2 week long menstrual periods and heavier flow. 2. Thin watery vaginal discharge for 4 months. No evidence of vaginitis on wet amber. 3. Abnormal cervical findings. Possible endocervical mass. Differential diagnosis will include endocervical polyp, pedunculated fibroid, other cervical neoplasm, or other type of endometrial neoplasm. This may be related to the watery discharge noted by the patient and on exam. This also may be related to the menorrhagia as well. 4. Very friable cervix. Bleeding started after obtaining the GC and chlamydia testing from the cervix. PLAN: 1. Pap smear was performed. 2. GC and chlamydia testing was obtained from the cervix. 3. Pelvic ultrasound will be scheduled. The order slip was given to the patient for this. 4. Bloodwork will include TSH and CBC. The order slip was given to the patient for this. 5. Initially I was considered doing an endometrial biopsy to further evaluate the endometrium, however, with the findings of the possible cervical mass and seeing how the cervix bled very easily, I am now considering referral for further evaluation such as hysteroscopy and D&C. We will get the above test results and then make a decision on this.
== END ==
LOC: WWCWWP 08:32
PROVIDERS: ATTEND Obstetrics & Gynecology
DX: Z53.9 Procedure and treatment not carried out, unspecified reason (principal)

== ENCOUNTER → 2019-01-10 | Outpatient (CLI) | payer OTHER ==
--- NOTE | 2019-01-10 10:12 | MM ---
Reason for exam: screening (asymptomatic). Baseline mammogram. Physical Findings: A clinical breast exam by your physician is recommended on an annual basis and results should be correlated with mammographic findings. MG Screening Mammo w CAD Bilateral CC and MLO view(s) were taken. The breast tissue is heterogeneously dense. This may lower the sensitivity of mammography. There are benign appearing scattered right calcifications. No suspicious abnormality. These results were verbally communicated with the patient and result sheet given to the patient on 01/10/19. ASSESSMENT: Benign, BI-RAD 2 RECOMMENDATION: Routine screening mammogram of both breasts in 1 year.
== END | disposition home or self-care (01) ==
LOC: RADMAMWWP 07:48
PROVIDERS: ATTEND Obstetrics & Gynecology
DX: Z12.31 Encounter for screening mammogram for malignant neoplasm of breast (principal)
CPT/HCPCS: 77067

== ENCOUNTER → 2019-02-10 | Outpatient (CLI) | payer OTHER ==
--- NOTE | 2019-02-11 09:36 | CT ---
EXAMINATION TYPE: CT ChestAbdPelvis w con DATE OF EXAM: 02/10/2019 COMPARISON: Ultrasound pelvis 01/12/2019 HISTORY: Cervical cancer. CT DLP: 1197.9 mGycm Automated exposure control for dose reduction was used. CONTRAST: CT scan of the chest, abdomen and pelvis is performed with Oral Contrast and with IV Contrast, patien t injected with 100ml mL of Isovue 300. FINDINGS: LUNGS: The lungs are grossly clear, there is no concerning parenchymal mass or nodule identified. T here is no pleural effusion or pneumothorax seen. The tracheobronchial tree is patent. MEDIASTINUM: There are no greater than 1 cm hilar or mediastinal lymph nodes. No pericardial effusi on is seen. AORTA: No significant abnormality is seen. OTHER: No additional significant abnormality is seen. LIVER/GB: No significant abnormality is appreciated. PANCREAS: No significant abnormality is seen. SPLEEN: No significant abnormality is seen. ADRENALS: No significant abnormality is seen. KIDNEYS: No significant abnormality is seen. REPRODUCTIVE ORGANS: Uterus is bulky, cervical mass present with some air present centrally, the mass measures approximately 7 cm in greatest dimension. It shows heterogeneous density. BOWEL: No significant abnormality is seen. FREE AIR: No Free Air visible. ASCITES: None seen. RETROPERITONEAL ADENOPATHY: No retroperitoneal adenopathy is seen. LYMPH NODES: No greater than 1 cm abdominal or pelvic lymph nodes are appreciated. URINARY BLADDER: No significant abnormality is seen. PELVIC ADENOPATHY: None visualized. OSSEOUS STRUCTURES: No significant abnormality is seen. IMPRESSION: Findings compatible with patient's history of carcinoma involving the uterine cervix.
== END | disposition home or self-care (01) ==
LOC: RADCTMAIN 14:53
PROVIDERS: ATTEND Obstetrics & Gynecology
DX: C53.9 Malignant neoplasm of cervix uteri, unspecified (principal)
CPT/HCPCS: 71260; 74177; Q9967

== ENCOUNTER → 2019-02-22 | Outpatient (CLI) | payer OTHER | END | disposition home or self-care (01) | LOC: LABWHC1 13:06 | PROVIDERS: ATTEND Radiology Radiation Oncology | DX: Z32.00 Encounter for pregnancy test, result unknown (principal) | CPT/HCPCS: 81025 ==

== ENCOUNTER → 2019-03-04 | Outpatient (CLI) | payer OTHER ==
--- NOTE | 2019-03-07 15:06 | PE ---
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 TECHNIQUE: Following the intravenous administration of 11.72 mCi of F-18 FDG, whole body images are performed from the skull base to the midthigh. Images are reviewed on the computer in the coronal, a xial, and sagittal planes. Reconstructed rotating images are created on independent workstation and reviewed on the computer. A localization and attenuation correction CT is performed in conjunction with the PET scan. SCAN: Initial staging exam FINDINGS: Mediastinal background: 1.94 Abdominal background: 2.38 SKULL BASE AND NECK: Some asymmetric pharyngeal uptake is seen No suspicious hypermetabolic uptake. CHEST, MEDIASTINUM, AND HILAR REGION: No suspicious hypermetabolic uptake. ABDOMEN AND PELVIS: In addition to the known neoplasm measuring approximately 7 cm on the prior contr ast-enhanced CT there is a left external iliac chain lymph node that is hypermetabolic measuring 8 mm in short axis that is marked on image 214 but continues to image 213. Maximum SUV of the primary mas s measures 23.03. Maximum SUV is a lymph node measures 4.06. OSSEOUS STRUCTURES: No suspicious hypermetabolic uptake. OTHER CT: There are scattered areas of subsegmental atelectasis within the lungs. Paranasal sinuses a nd mastoid air cells appear well aerated. Some high density within the globes may be artifactual alth ough correlation with ophthalmologic exam could be considered. Faint punctate coronary artery calcifi cations are seen. No thoracic adenopathy. Punctate probable upper thoracic bone island. Minimal degen erative changes of the spine and hips. Probable focal fatty infiltration near the fissure for the fal ciform ligament, a typical location. This is hypometabolic with a maximum SUV of 1.24. No suspicious adenopathy in the abdomen. Follicular and/or cystic changes of the ovaries. Both a cervical tumor as described above. IMPRESSION: Marked hypermetabolic uptake within the known approximately 7 cm cervical squamous cell c arcinoma and adenocarcinoma. Additionally there is a solitary prominent hypermetabolic left external iliac chain lymph node measuring 8 mm that is closely associated with sigmoid colon and adjacent vasc ulature. Therefore access for percutaneous biopsy may be difficult.
== END | disposition home or self-care (01) ==
LOC: RADPETMAIN 14:54
PROVIDERS: ATTEND Radiology Radiation Oncology
DX: C53.0 Malignant neoplasm of endocervix (principal)
CPT/HCPCS: 78815; A9552

== ENCOUNTER → 2020-07-10 | Outpatient (CLI) | payer OTHER ==
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
--- NOTE | 2020-07-18 12:34 | P.PN ---
Progress Note - Text Progress Note Date: 07/18/20 OUTPATIENT FOLLOW-UP NOTE TEST(S)/RESULTS: Pap smear done on 07/10/2020 showed ASCUS with negative high- risk HPV testing. METHOD OF NOTIFICATION: The patient was notified by phone. 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 Rabbi Yo, on 07/23/2020. This was her first Pap smear after treatment for cervical cancer. DIAGNOSIS: History of cervical cancer status post radiation and chemotherapy. 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 Lipscomb. I will also try to send a copy to Dr. Lipscomb. She understands that he may want to do a colposcopic examination. PLAN: As above.
== END | disposition home or self-care (01) ==
DX: Z53.9 Procedure and treatment not carried out, unspecified reason (principal)

== ENCOUNTER → 2020-08-24 | Outpatient (CLI) | payer OTHER ==
--- NOTE | 2020-08-24 16:49 | CT ---
EXAMINATION TYPE: CT ChestAbdPelvis w con DATE OF EXAM: 08/24/2020 INDICATION: Cervical cancer, observe for METS COMPARISON: PET CT 09/03/2019 CT DLP: 1779 mGycm CONTRAST: Performed with Oral Contrast and with IV Contrast, patient injected with 100 mL of Isovue 300. TECHNIQUE: Axial images at 5 mm thick sections. Reconstructed images in the coronal plane. Delayed images through the kidneys. FINDINGS: CT CHEST: Portion of the thyroid visualized is normal. No suspicious lung nodules or focal infiltrates are present. No enlarged mediastinal or hilar adenopathy is evident. The ascending aorta diameter at the level of the main pulmonary artery is 3.0 cm. The main pulmonary artery diameter at the bifurcation is 2.[address] ABDOMEN: Liver: Normal Spleen: Normal Pancreas: Normal Adrenal glands: The adrenal glands are normal. Gallbladder: Normal Kidneys: No masses are evident. No hydronephrosis is present. No cysts are present. Aorta: Normal Inferior vena cava: Normal. CT PELVIS: Loops of bowel within the abdomen and pelvis are normal. There are loops of bowel which are incom pletely distended or lack oral contrast limiting their evaluation. Appendix: Not identified. No dilated tubular structure inflammatory changes evident. Urinary bladder: Normal. Genitourinary structures: Uterus appears normal. No obvious expansion of the cervix is identified. Ad nexal regions are clear. No free fluid is within the pelvis. Osseous structures: No suspicious lytic or sclerotic lesions. IMPRESSIONS: 1. No suspicious changes to suggest recurrent or metastatic cervical cancer.
== END | disposition home or self-care (01) ==
LOC: RADCTMAIN 09:31
PROVIDERS: ATTEND Internal Medicine Hematology & Oncology
DX: C53.8 Malignant neoplasm of overlapping sites of cervix uteri (principal); Z88.1 Allergy status to other antibiotic agents
CPT/HCPCS: 71260; 74177; Q9967 ×2

== ENCOUNTER → 2020-10-25 | Outpatient (CLI) | payer OTHER ==
--- NOTE | 2020-10-29 14:03 | MM ---
Reason for exam: screening (asymptomatic). Last mammogram was performed 1 year and 9 months ago. Physical Findings: A clinical breast exam by your physician is recommended on an annual basis and results should be correlated with mammographic findings. MG 3D Screening Mammo W/Cad Bilateral CC and MLO view(s) were taken. Prior study comparison: January 10, 2019, bilateral MG screening mammo w CAD. The breast tissue is heterogeneously dense. This may lower the sensitivity of mammography. No significant changes when compared with prior studies. ASSESSMENT: Negative, BI-RAD 1 RECOMMENDATION: Routine screening mammogram of both breasts in 1 year.
== END | disposition home or self-care (01) ==
LOC: RADMAMWWP 15:10
PROVIDERS: ATTEND Obstetrics & Gynecology
DX: Z12.31 Encounter for screening mammogram for malignant neoplasm of breast (principal)
CPT/HCPCS: 77063; 77067

== ENCOUNTER → 2021-08-06 | Outpatient (CLI) | payer OTHER ==
--- NOTE | 2021-08-06 13:39 | CT ---
EXAMINATION TYPE: CT ChestAbdPelvis w con DATE OF EXAM: 08/06/2021 COMPARISON: 08/24/20 HISTORY: cervical ca CT DLP: 1568.5 mGycm CONTRAST: CT scan of the chest, abdomen and pelvis is performed with Oral Contrast and with IV Contrast, patien t injected with 100 mL of Isovue 300. CT Chest: LUNGS: The lungs are clear and free of infiltrate or atelectasis. No pulmonary nodule or mass is det ected. No pleural effusion or CT evidence of interstitial lung disease. MEDIASTINUM: Thoracic aorta is of normal caliber. The heart is not enlarged. No evidence for media stinal mass or adenopathy. HILAR STRUCTURES: No evidence for mass. No hilar adenopathy is appreciated. OTHER: No significant abnormality. CONTRAST CT ABDOMEN AND PELVIS FINDINGS: LIVER/GB: Mild hepatic steatosis. No calcified gallstones. No space occupying hepatic lesion. Bili maria tree is of normal caliber. PANCREAS: No inflammation. No distinct mass. SPLEEN: No splenic enlargement. No lesion seen. ADRENALS: No nodule. No thickening. KIDNEYS/BLADDER: No hydronephrosis. No nephrolithiasis. No distinct renal mass. BOWEL: Normal appendix. Normal bowel caliber. No inflammation. GENITAL ORGANS: Hysterectomy changes no evidence for recurrent or residual mass. LYMPH NODES: No gre ater than 1cm abdominal or pelvic lymph nodes are appreciated. AORTA: No significant abnormality. OSSEOUS STRUCTURES: No significant abnormality is seen. OTHER: No significant additional abnormality is seen. IMPRESSION: 1. No evidence for recurrent or residual disease. No evidence for metastatic disease.
== END | disposition home or self-care (01) ==
LOC: RADCTMAIN 11:29
PROVIDERS: ATTEND Radiology Radiation Oncology
DX: Z08 Encounter for follow-up examination after completed treatment for malignant neoplasm (principal); C53.0 Malignant neoplasm of endocervix; C53.9 Malignant neoplasm of cervix uteri, unspecified; Z92.3 Personal history of irradiation
CPT/HCPCS: 71260; 74177; Q9967

== ENCOUNTER 2021-10-04 10:20 | Emergency (ER) | payer OTHER ==
[2021-10-04] MEDS ORDERED: SODIUM CHLORIDE 0.9% 1,000 ML IV STA (10:36)
[2021-10-04 10:58] LABS: Basophils % (A) 0 %; Eosinophils # (A) 0.1 k/uL (0-0.7); Eosinophils % (A) 2 %; HCT 44.8 % (34.0-46.0); HGB 15.1 gm/dL (11.4-16.0); Lymphocytes # (A) 0.8 k/uL (1.0-4.8); Lymphocytes % (A) 11 %; MCH 29.5 pg (25.0-35.0); MCHC 33.7 g/dL (31.0-37.0); MCV 87.5 fL (80.0-100.0); Monocytes # (A) 0.2 k/uL (0-1.0); Monocytes % (A) 3 %; Neutrophils # (A) 5.5 k/uL (1.3-7.7); Neutrophils % (A) 82 %; Platelet Count 366 k/uL (150-450); RBC 5.12 m/uL (3.80-5.40); RDW 13.4 % (11.5-15.5); WBC 6.6 k/uL (3.8-10.6)
[2021-10-04 11:07] LABS: ALT 32 U/L (4-34); AST 31 U/L (14-36); African American GFR (CKD) >90 (>60 ml/min/1.73 sqM); Albumin 4.7 g/dL (3.5-5.0); Alkaline Phosphatase 131 U/L (38-126); Amylase 72 U/L (30-110); Anion Gap 9 mmol/L; Blood Urea Nitrogen 21 mg/dL (7-17); Calcium 9.4 mg/dL (8.4-10.2); Carbon Dioxide 23 mmol/L (22-30); Chloride 106 mmol/L (98-107); Glucose 129 mg/dL (74-99); Lipase 121 U/L (23-300); Non-African American GFR(CKD) >90 (>60 ml/min/1.73 sqM); Potassium 4.3 mmol/L (3.5-5.1); Sodium 138 mmol/L (137-145); Total Protein 7.8 g/dL (6.3-8.2)
--- NOTE | 2021-10-04 11:32 | ED ---
General Adult HPI - General Chief complaint: Abdominal Pain Stated complaint: Abdominal Pain Time Seen by Provider: 10/04/21 10:27 Source: patient Mode of arrival: ambulatory Limitations: no limitations - History of Present Illness Initial comments: Patient is a 45-year-old female presenting with chief complaint of abdominal pain. Patient states she has been experiencing nausea, vomiting, and diarrhea for the last 2 days. Patient believes this is due to her current low-carb diet and eating a large amount of fiber one bars. Patient has had dull abdominal pain for the last 2 days, but today she began experiencing an intense cramping 10 out of 10 pain in the right lower quadrant which prompted her to present to the ER. At this time the patient states that the pain has gone from a 10 out of 10 to a 4 out of 10. Patient is also complaining of sharp pain in the vaginal region. Patient states it has been difficult to urinate for the last 2 days. She denies any dysuria, urgency, frequency, hematuria, back pain, change in urine odor or appearance. She denies chest pain, shortness of breath, headache, cough, fever, chills, hematochezia, hematemesis, hematuria. - Related Data Home Medications Medication Instructions Recorded Confirmed Naltrexone Microspheres [Vivitrol] 380 mg IM QMONTHLY 10/04/21 10/04/21 Previous Rx's Medication Instructions Recorded Amoxicillin/Potassium Clav 1 tab PO BID 7 Days #14 tab 10/04/21 [Augmentin 875-125 Tablet] Allergies Allergy/AdvReac Type Severity Reaction Status Date / Time cephalexin [From Keflex] Allergy Unknown Verified 10/04/21 10:25 Review of Systems ROS Statement: Those systems with pertinent positive or pertinent negative responses have been documented in the HPI. ROS Other: All systems not noted in ROS Statement are negative. 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 History of Any Multi-Drug Resistant Organisms: None Reported Past Surgical History: No Surgical Hx Reported Additional Past Surgical History / Comment(s): Birthmark to forehead removed. Past Anesthesia/Blood Transfusion Reactions: No Reported Reaction Past Psychological History: Anxiety, Depression Smoking Status: Current some day smoker Past Alcohol Use History: Occasional Past Drug Use History: None Reported - Past Family History Father Family Medical History: Diabetes Mellitus, Hypertension, Myocardial Infarction ([place]) Mother Family Medical History: No Reported History Son(s) Family Medical History: No Reported History Additional Family Medical History / Comment(s): . General Exam Limitations: no limitations General appearance: alert, in no apparent distress Head exam: Present: atraumatic, normocephalic, normal inspection Eye exam: Present: normal appearance, PERRL, EOMI. Absent: scleral icterus, conjunctival injection, periorbital swelling ENT exam: Present: normal exam, mucous membranes moist Neck exam: Present: normal inspection Respiratory exam: Present: normal lung sounds bilaterally. Absent: respiratory distress, wheezes, rales, rhonchi, stridor Cardiovascular Exam: Present: regular rate, normal rhythm, normal heart sounds. Absent: systolic murmur, diastolic murmur, rubs, gallop, clicks GI/Abdominal exam: Present: soft, normal bowel sounds. Absent: distended, tenderness, guarding, rebound, rigid External exam: Present: normal external exam Speculum exam: Present: vaginal bleeding (MILD) By manual exam: Present: normal by manual exam. Absent: cervical motion tenderness, adnexal tenderness Neurological exam: Present: alert, oriented X3, CN II-XII intact Psychiatric exam: Present: normal affect, normal mood Skin exam: Present: warm, dry, intact, normal color. Absent: rash Course Vital Signs 10/04/21 10/04/21 10/04/21 10:23 13:00 14:49 Temperature 98.9 F 97 F L Pulse Rate 67 67 81 Respiratory 20 16 16 Rate Blood Pressure 152/102 117/65 O2 Sat by Pulse 100 99 99 Oximetry Medical Decision Making - Medical Decision Making Patient is a 45-year-old female presenting with chief complaint of abdominal pain and vaginal pain. Past medical history of cervical cancer, pt had CT done 08/06/21. Patient has been experiencing nausea, vomiting, diarrhea for the last 2 days. Symptoms began after starting a low carbohydrate diet and eating large amounts of fiber. Today she began experiencing a cramping pain located in the right lower quadrant. The pain was 10 out of 10 and had resolved by the time of exam. Denies fever, chills, vaginal bleeding, dysuria, hematuria, urgency, frequency, back pain. On exam normal bowel sounds in all 4 quadrants, abdomen is soft, nontender, nondistended. Pelvic exam shows very mild bleeding, no adnexal tenderness. Patient's urine was positive for moderate blood. KUB x-ray showed overall nonobstructive bowel gas pattern. Abdominal and pelvic CT with contrast impression: Source of microhematuria not identified. Mild wall thickening of the descending colon into the sigmoid colon could reflect product of a mild uncomplicated colitis versus product of poor distention. Otherwise no significant or acute finding from the most recent CT. Advised the patient on the findings and instructed her to follow up with MANAGER TRAINING. Patient states that she already has a scheduled appointment for October. Treated for colitis with Augmentin 875 to times a day for 7 days. Take medication as prescribed. Follow up with PCP in one to 2 days. Report back to ER with any worsening symptoms or new onset alarming symptoms. I educated the patient on return parameters and alarming symptoms. Answered all questions. Patient conveyed verbal understanding and agreed to the plan. I discussed this case with my attending Dr. Gallagher - Lab Data Result diagrams: 10/04/21 10:43 10/04/21 10:43 Lab Results 10/04/21 10/04/21 10/04/21 Range/Units 10:43 10:43 10:43 WBC 6.6 (3.8-10.6) k/uL RBC 5.12 (3.80-5.40) m/uL Hgb 15.1 (11.4-16.0) gm/dL Hct 44.8 (34.0-46.0) % MCV 87.5 (80.0-100.0) fL MCH 29.5 (25.0-35.0) pg MCHC 33.7 (31.0-37.0) g/dL RDW 13.4 (11.5-15.5) % Plt Count 366 (150-450) k/uL MPV 7.0 Neutrophils % 82 % Lymphocytes % 11 % Monocytes % 3 % Eosinophils % 2 % Basophils % 0 % Neutrophils # 5.5 (1.3-7.7) k/uL Lymphocytes # 0.8 L (1.0-4.8) k/uL Monocytes # 0.2 (0-1.0) k/uL Eosinophils # 0.1 (0-0.7) k/uL Basophils # 0.0 (0-0.2) k/uL Sodium (137-145) mmol/L Potassium (3.5-5.1) mmol/L Chloride (98-107) mmol/L Carbon Dioxide (22-30) mmol/L Anion Gap mmol/L BUN (7-17) mg/dL Creatinine (0.52-1.04) mg/dL Est GFR (CKD-EPI)AfAm (>60 ml/min/1.73 sqM) Est GFR (CKD-EPI)NonAf (>60 ml/min/1.73 sqM) Glucose (74-99) mg/dL Calcium (8.4-10.2) mg/dL Total Bilirubin (0.2-1.3) mg/dL AST (14-36) U/L ALT (4-34) U/L Alkaline Phosphatase (38-126) U/L Total Protein (6.3-8.2) g/dL Albumin (3.5-5.0) g/dL Amylase (30-110) U/L Lipase (23-300) U/L Urine Color Yellow Urine Appearance Clear (Clear) Urine pH 5.5 (5.0-8.0) Ur Specific [place] 1.024 (1.001-1.035) Urine Protein Trace H (Negative) Urine Glucose (UA) Negative (Negative) Urine Ketones 1+ H (Negative) Urine Blood Moderate H (Negative) Urine Nitrite Negative (Negative) Urine Bilirubin Negative (Negative) Urine Urobilinogen <2.0 (<2.0) mg/dL Ur Leukocyte Esterase Negative (Negative) Urine RBC 75 H (0-5) /hpf Urine WBC 4 (0-5) /hpf Ur Squamous Epith Cells 1 (0-4) /hpf Urine Mucus Many H (None) /hpf Urine HCG, Qual Not Detected (Not Detectd) 10/04/21 Range/Units 10:43 WBC (3.8-10.6) k/uL RBC (3.80-5.40) m/uL Hgb (11.4-16.0) gm/dL Hct (34.0-46.0) % MCV (80.0-100.0) fL MCH (25.0-35.0) pg MCHC (31.0-37.0) g/dL RDW (11.5-15.5) % Plt Count (150-450) k/uL MPV Neutrophils % % Lymphocytes % % Monocytes % % Eosinophils % % Basophils % % Neutrophils # (1.3-7.7) k/uL Lymphocytes # (1.0-4.8) k/uL Monocytes # (0-1.0) k/uL Eosinophils # (0-0.7) k/uL Basophils # (0-0.2) k/uL Sodium 138 (137-145) mmol/L Potassium 4.3 (3.5-5.1) mmol/L Chloride 106 (98-107) mmol/L Carbon Dioxide 23 (22-30) mmol/L Anion Gap 9 mmol/L BUN 21 H (7-17) mg/dL Creatinine 0.76 (0.52-1.04) mg/dL Est GFR (CKD-EPI)AfAm >90 (>60 ml/min/1.73 sqM) Est GFR (CKD-EPI)NonAf >90 (>60 ml/min/1.73 sqM) Glucose 129 H (74-99) mg/dL Calcium 9.4 (8.4-10.2) mg/dL Total Bilirubin 1.0 (0.2-1.3) mg/dL AST 31 (14-36) U/L ALT 32 (4-34) U/L Alkaline Phosphatase 131 H (38-126) U/L Total Protein 7.8 (6.3-8.2) g/dL Albumin 4.7 (3.5-5.0) g/dL Amylase 72 (30-110) U/L Lipase 121 (23-300) U/L Urine Color Urine Appearance (Clear) Urine pH (5.0-8.0) Ur Specific [place] (1.001-1.035) Urine Protein (Negative) Urine Glucose (UA) (Negative) Urine Ketones (Negative) Urine Blood (Negative) Urine Nitrite (Negative) Urine Bilirubin (Negative) Urine Urobilinogen (<2.0) mg/dL Ur Leukocyte Esterase (Negative) Urine RBC (0-5) /hpf Urine WBC (0-5) /hpf Ur Squamous Epith Cells (0-4) /hpf Urine Mucus (None) /hpf Urine HCG, Qual (Not Detectd) - Radiology Data Radiology results: report reviewed KUB x-ray showed overall nonobstructive bowel gas pattern. Abdominal and pelvic CT with contrast impression: Source of microhematuria not identified. Mild wall thickening of the descending colon into the sigmoid colon could reflect product of a mild uncomplicated colitis versus product of poor distention. Otherwise no significant or acute finding from the most recent CT. Disposition Clinical Impression: Colitis Disposition: HOME SELF-CARE Condition: Good Additional Instructions: Take medications as prescribed. Follow-up with MANAGER TRAINING at scheduled October appointment. Report back to ER with any worsening symptoms or new onset alarming symptoms. Prescriptions: Amoxicillin/Potassium Clav [Augmentin 875-125 Tablet] 1 tab PO BID 7 Days #14 tab Is patient prescribed a controlled substance at d/c from ED?: No Referrals: Marcellus Austin Jr, DO [Primary Care Provider] - 1-2 days Time of Disposition: 14:46
[2021-10-04] MEDS ORDERED: ONDANSETRON 4 MG/2 ML VIAL IVP STA (11:36)
--- NOTE | 2021-10-04 11:42 | XR ---
EXAMINATION TYPE: XR KUB DATE OF EXAM: 10/04/2021 11:15 AM CLINICAL HISTORY: Abdominal pain. TECHNIQUE: Two Upright KUB images of the abdomen are obtained. COMPARISON: CT August 06, 2021. FINDINGS: Gas is seen in nondistended stomach. Scattered gas is seen in non-distended small and large bowel loops. Lung bases are clear. No suspicious calcifications or free air. Visualized osseous stru ctures are intact. IMPRESSION: Overall nonobstructive bowel gas pattern.
[2021-10-04 12:40] LABS: Appearance,Urine Clear (Clear); Bilirubin,Urine Negative (Negative); Blood,Urine Moderate (Negative); Color,Urine Yellow; Glucose,Urine (UA) Negative (Negative); Ketones,Urine 1+ (Negative); Leukocyte Esterase,Urine Negative (Negative); Mucus,Urine Many /hpf; Nitrite,Urine Negative (Negative); PH, Urine 5.5 (5.0-8.0); Protein,Urine Trace (Negative); RBC,Urine 75 /hpf (0-5); Specific Gravity,Urine 1.024 (1.001-1.035); Squamous Epithelial Cell,Urine 1 /hpf (0-4); Urobilinogen,Urine <2.0 mg/dL (<2.0); WBC,Urine 4 /hpf (0-5)
[2021-10-04 13:24] VITALS: BP 117/65; RESP 16; TEMP 97
--- NOTE | 2021-10-04 14:14 | CT ---
EXAMINATION TYPE: CT abdomen pelvis w con DATE OF EXAM: 10/04/2021 HISTORY: ABDOMINAL PAIN AND MICRO HEMATURIA. History of cervical cancer. CT DLP: 1403.2mGycm Automated Exposure Control for Dose Reduction was Utilized. CONTRAST: CT scan of the abdomen and pelvis is performed with IV Contrast, patient injected with 100ML mL of Is ovue 300. COMPARISON: CT August 06, 2021 FINDINGS: LUNG BASES: No significant abnormality is appreciated. LIVER/GB: Visualized liver is heterogeneously hypodense consistent with diffuse fatty infiltration. PANCREAS: No significant abnormality is seen. SPLEEN: No significant abnormality is seen. ADRENALS: No significant abnormality is seen. KIDNEYS: Symmetric cortical medullary uptake and excretion without hydronephrosis seen bilaterally. BOWEL: Some hyperdense material is present in the colon. Possible ingested food product. No suspiciou s small or large bowel dilatation. Low-lying cecum into the right pelvis redemonstrated. Mild to mode rate wall thickening in the left colon extends into the proximal to mid sigmoid colon. No significant surrounding fat stranding UTERUS/ADNEXA: Anteverted uterus. LYMPH NODES: No greater than 1cm abdominal or pelvic lymph nodes are appreciated. OSSEOUS STRUCTURES: No significant abnormality is seen. OTHER: No significant additional abnormality is seen. IMPRESSION: Source of microhematuria not identified. Mild wall thickening of the descending colon int o the sigmoid colon could reflect product of a mild uncomplicated colitis versus product of poor dist ention. Correlate clinically. Otherwise no significant new or acute finding from the most recent CT.
[2021-10-04 14:50] VITALS: PULSE 81
== END 2021-10-04 14:52 | disposition home or self-care (01) ==
LOC: EC 10:20
DX: K52.9 Noninfective gastroenteritis and colitis, unspecified (principal); F17.200 Nicotine dependence, unspecified, uncomplicated
CPT/HCPCS: 36415; 80053; 82150; 83690; 85025; 81001; 81025; 74018; 74177; 99284; 96360; 96361; Q9967

== ENCOUNTER → 2022-03-25 | Outpatient (CLI) | payer OTHER ==
[2022-03-25 16:12] VITALS: BP 115/80; PULSE 86; RESP 17; TEMP 97.4
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
[2022-03-26 17:14] LABS: Gardnerella Positive (Negative); Source Vagina; Trichomonas Negative (Negative)
--- NOTE | 2022-03-27 08:37 | P.PN ---
Progress Note - Text Progress Note Date: 03/27/22 Test results from 03/25/22 include Affirm vaginitis panel which was positive for Gardnerella. The patient was notified by phone. A/ Bacterial vaginosis P/ metronidazole 500mg PO BIDx 7 days. She says she will no drink alcohol while taking the medication. The electronic prescription was sent to [facility] [address].
== END ==
LOC: WWCWWP 16:02
PROVIDERS: ATTEND Obstetrics & Gynecology
DX: Z01.419 Encounter for gynecological examination (general) (routine) without abnormal findings (principal); N89.8 Other specified noninflammatory disorders of vagina; Z85.41 Personal history of malignant neoplasm of cervix uteri; Z78.0 Asymptomatic menopausal state; F41.9 Anxiety disorder, unspecified; F32.A Depression, unspecified; Z87.891 Personal history of nicotine dependence; Z88.1 Allergy status to other antibiotic agents
CPT/HCPCS: 77063; 77067; 87480; 87491; 87510; 87591; 87660

== ENCOUNTER 2022-07-18 20:46 | Emergency (ER) | payer OTHER ==
[2022-07-18 21:02] VITALS: RESP 16
--- NOTE | 2022-07-18 21:40 | ED ---
Upper Extremity HPI - General Source: patient, family, RN notes reviewed Mode of arrival: ambulatory Limitations: no limitations <eSnia Yo - Last Filed: 07/18/22 21:37> <Analisa Robertson - Last Filed: 07/19/22 02:49> - General Chief Complaint: Extremity Injury, Upper Stated Complaint: fell skating injured L arm Time Seen by Provider: 07/18/22 21:37 - History of Present Illness Initial Comments: Patient is a 46 year old female who presents with left arm pain after fall. Patient was rollerskating when she fell on her left elbow. She reports pain from her left upper arm to wrist. Denies numbness and tingling. Does admit to ETOH use. (Senia Yo) - Related Data Home Medications Medication Instructions Recorded Confirmed Naltrexone Microspheres [Vivitrol] 380 mg IM QMONTHLY 10/04/21 03/25/22 Previous Rx's Medication Instructions Recorded metroNIDAZOLE 500 mg PO BID 7 Days #14 tablet 03/27/22 Allergies Allergy/AdvReac Type Severity Reaction Status Date / Time cephalexin [From Keflex] Allergy Unknown Verified 03/25/22 16:07 Review of Systems ROS Other: All systems not noted in ROS Statement are negative. <Senia Yo - Last Filed: 07/18/22 21:37> ROS Other: All systems not noted in ROS Statement are negative. <Analisa Robertson - Last Filed: 07/19/22 02:49> ROS Statement: Those systems with pertinent positive or pertinent negative responses have been documented in the HPI. 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 Stage IIb adenosquamous CERVICAL CANCER IN 2019 status post chemotherapy and radiation therapy. History of Any Multi-Drug Resistant Organisms: None Reported Past Surgical History: No Surgical Hx Reported Additional Past Surgical History / Comment(s): Birthmark to forehead removed. Past Anesthesia/Blood Transfusion Reactions: No Reported Reaction Past Psychological History: Anxiety, Depression Smoking Status: Former smoker Past Alcohol Use History: Daily Past Drug Use History: None Reported - Past Family History Father Family Medical History: Diabetes Mellitus, Hypertension, Myocardial Infarction ([place]) Mother Family Medical History: No Reported History Son(s) Family Medical History: No Reported History Additional Family Medical History / Comment(s): . <Senia Yo - Last Filed: 07/18/22 21:37> General Exam Limitations: no limitations <Senia Yo - Last Filed: 07/18/22 21:37> Course Vital Signs 07/18/22 07/19/22 20:59 00:31 Temperature 97 F L 97.9 F Pulse Rate 86 74 Respiratory 16 16 Rate Blood Pressure 123/88 O2 Sat by Pulse 97 97 Oximetry Medical Decision Making - Radiology Data Radiology results: report reviewed, image reviewed <Analisa Robertson - Last Filed: 07/19/22 02:49> - Medical Decision Making This is a 46-year-old female who presents to the emergency department for left wrist, elbow, and shoulder pain. When I went back to evaluate the patient, she was found to have eloped before I could speak with or examine her. (Analisa Robertson) Disposition <SanazSenia - Last Filed: 07/18/22 21:37> <Analisa Robertson - Last Filed: 07/19/22 02:49> Clinical Impression: Left arm pain Disposition: Left Against Medical Advice Referrals: Marcellus Austin Jr, [Primary Care Provider] - 1-2 days
--- NOTE | 2022-07-18 21:53 | XR ---
EXAMINATION TYPE: XR wrist complete LT DATE OF EXAM: 07/18/2022 COMPARISON: NONE HISTORY: Pain TECHNIQUE: 3 views FINDINGS: There is no evidence of fracture nor dislocation. Carpal bones are intact. Metacarpals are intact. IMPRESSION: Negative left wrist exam.
--- NOTE | 2022-07-18 21:56 | XR ---
EXAMINATION TYPE: XR elbow complete LT DATE OF EXAM: 07/18/2022 COMPARISON: NONE HISTORY: Fall. Pain TECHNIQUE: 4 views FINDINGS: There is no evidence of fracture nor dislocation. No sign of elbow joint effusion. Radial h ead is intact. IMPRESSION: Negative left elbow exam.
--- NOTE | 2022-07-18 21:59 | XR ---
EXAMINATION TYPE: XR humerus LT DATE OF EXAM: 07/18/2022 COMPARISON: NONE HISTORY: Pain. Fall. TECHNIQUE: 2 views FINDINGS: The shoulder joint and elbow joint appear intact. I see no fracture nor dislocation. Joint spaces are normal. IMPRESSION: Negative left humerus exam.
[2022-07-19 00:32] VITALS: BP 123/88; PULSE 74; TEMP 97.9
== END 2022-07-19 01:12 | disposition left against medical advice (07) ==
LOC: EC 20:46
DX: M79.602 Pain in left arm (principal); F41.9 Anxiety disorder, unspecified; F32.A Depression, unspecified; Z87.891 Personal history of nicotine dependence; Z88.1 Allergy status to other antibiotic agents; W19.XXXA Unspecified fall, initial encounter
CPT/HCPCS: 99283

== ENCOUNTER → 2022-11-13 | Outpatient (CLI) | payer OTHER ==
--- NOTE | 2022-11-13 15:52 | CT ---
EXAMINATION TYPE: CT abdomen pelvis w con CT DLP: 1453 mGycm, Automated exposure control for dose reduction was used. DATE OF EXAM: 11/13/2022 10:23 AM COMPARISON: CT abdomen pelvis most recent from 10/04/2021 CLINICAL INDICATION:Female, 46 years old with history of C53.9 C53.0; Follow up for cervical cancer. TECHNIQUE: Axial CT of the abdomen and pelvis. Sagittal and coronal reformats were created on a [employer] workstation. Contrast used:100ml Oral contrast used: with Oral Contrast FINDINGS: LOWER CHEST: Unremarkable ABDOMEN LIVER: Diffusely hypoattenuating parenchyma. GALLBLADDER AND BILE DUCTS: Unremarkable. PANCREAS: Unremarkable. SPLEEN: Unremarkable. ADRENAL GLANDS: Unremarkable. KIDNEYS AND URETERS: No evidence of hydronephrosis or renal calculus. The ureters are unremarkable. PELVIS BLADDER: Unremarkable REPRODUCTIVE: The cervix on CT imaging is relatively unremarkable. No suspicious mass. ABDOMEN & PELVIS STOMACH AND BOWEL: No evidence of bowel obstruction. PERITONEUM/RETROPERITONEUM: No evidence of pneumoperitoneum or free fluid. VASCULATURE: No evidence of aortic aneurysm. MUSCULOSKELETAL: No acute osseous abnormalities LYMPH NODES: No gross evidence for lymphadenopathy. SOFT TISSUE/ABDOMINAL WALL: Unremarkable IMPRESSION: 1. Normal appearance of the cervix on CT imaging. No evidence for lymphadenopathy. No evidence for a cute abdominal process. 2. Hepatic steatosis suspected.
== END | disposition home or self-care (01) ==
LOC: RADCTMAIN 08:28
PROVIDERS: ATTEND Obstetrics & Gynecology
DX: Z08 Encounter for follow-up examination after completed treatment for malignant neoplasm (principal); K76.0 Fatty (change of) liver, not elsewhere classified; Z85.41 Personal history of malignant neoplasm of cervix uteri; Z92.3 Personal history of irradiation
CPT/HCPCS: 74177; Q9967

== ENCOUNTER → 2023-04-21 | Outpatient (CLI) | payer OTHER ==
[2023-04-21 09:46] VITALS: BP 137/88; PULSE 72; RESP 17; TEMP 98.3
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
--- NOTE | 2023-04-22 09:47 | MM ---
Reason for Exam: Screening (asymptomatic). Last mammogram was performed 1 year(s) and 1 month(s) ago. Patient History: Menarche at age 15. First Full-Term at age 20. Postmenopausal. Previous chemotherapy at age 43. Maternal grandmother had breast cancer, age 65. Risk Values: Kristi 5 year model risk: 0.6%. NCI Lifetime model risk: 6.3%. Prior Study Comparison: 01/10/2019 Bilateral Screening Mammogram, [facility]. 10/25/2020 Bilateral Screening Mammogram, [facility]. 03/25/2022 Bilateral MG 3D screening mammo w/cad, [facility]. Tissue Density: The breast tissue is heterogeneously dense. This may lower the sensitivity of mammography. Findings: Analyzed By CAD. There is no suspicious group of microcalcifications or new suspicious mass in either breast. Overall Assessment: Benign, BI-RAD 2 Management: Screening Mammogram of both breasts in 1 year. . Patient should continue monthly self-breast exams. A clinical breast exam by your physician is recommended on an annual basis. This exam should not preclude additional follow-up of suspicious palpable abnormalities. Note on Kristi scores and lifetime risk: 1. A Kristi score greater than 3% is considered moderate risk. If this is the case, consider specialist referral to assess eligibility for a risk reducing agent. 2. If overall lifetime risk for the development of breast cancer is 20% or higher, the patient may qualify for future screening with alternating mammogram and breast MRI. Electronically signed and approved by: Carlos Gore M.D. Radiologis
== END ==
LOC: WWCWWP 09:09
PROVIDERS: ATTEND Obstetrics & Gynecology
DX: Z12.31 Encounter for screening mammogram for malignant neoplasm of breast (principal); R63.4 Abnormal weight loss; Z78.0 Asymptomatic menopausal state; Z85.41 Personal history of malignant neoplasm of cervix uteri; Z87.891 Personal history of nicotine dependence; Z92.21 Personal history of antineoplastic chemotherapy; Z92.3 Personal history of irradiation; Z88.1 Allergy status to other antibiotic agents; Z80.3 Family history of malignant neoplasm of breast
CPT/HCPCS: 77063; 77067